=== PATIENT | male | born 1990 | race Caucasian/White ===

== ENCOUNTER 2020-02-05 01:25 | Emergency (ER) | payer BC, SELFPAY ==
[2020-02-05] VITALS (11 sets, daily range): BP systolic 95–141; BP diastolic 58–83; PULSE 86–96; RESP 18–34; TEMP 36.2; O2SAT 97–100
--- NOTE | ~2020-02-05 | XR_ITS ---
EXAMINATION: XR chest 1V portable EXAM DATE: 02/05/2020 02:39 INDICATION: Shortness of breath. TECHNIQUE: Portable AP frontal chest x-ray was obtained. Comparison is made to prior examination from 12/16/2007. FINDINGS: There is rather extensive bilateral perihilar distribution airspace disease most likely acu te edema and/or infection. Please clinically correlate. There is mild cardiomegaly. Cardiomegaly is n ew compared to prior study. No sizable pleural effusion. No pneumothorax. There are no osseous abnorm alities identified. IMPRESSION: Development of cardiomegaly, rather extensive bilateral perihilar edema and/or infection Reviewed, dictated and finalized at location A.
--- NOTE | ~2020-02-05 | CT_ITS ---
EXAMINATION: CT abdomen pelvis w con EXAM DATE: 02/05/2020 05:39 INDICATION: Abdominal pain, cough. No prior study. Hepatitis. TECHNIQUE: Spiral CT of the abdomen and pelvis was performed following intravenous injection of 100 m L Omnipaque 350. Axial, coronal and sagittal images were reviewed. The dose-length product (DLP) fo r this examination was 497.10 mGy-cm. The exposure was tailored according to patient size (auto mA e xposure control), and iterative reconstruction (ASIR) was used as additional dose reduction technique . There is no prior study for comparison. FINDINGS: There is moderate generalized fat stranding, body wall, mesenteric edema. There is small am ount of nonspecific free pelvic fluid. There is retroperitoneal fat stranding as well. Hepatic steat osis, hepatomegaly, heterogeneous liver density. Gallbladder is contracted with small amount of nons pecific pericholecystic fluid. No radiopaque gallstones. Spleen, pancreas, adrenal glands are unremar kable. Portal and splenic veins are patent. Kidneys enhance symmetrically. There is no hydronephros is. The prostate is unremarkable. The bladder is unremarkable. There is no retroperitoneal or pel irta lymphadenopathy. The appendix is normal. The stomach and small bowel are unremarkable. There is expected amount of c olonic stool. No free intraperitoneal gas. There is moderate cardiomegaly. There is rather exten sive right-sided, small to moderate amount of left-sided airspace disease in the perihilar distributi on, likely either edema, acute lung injury or acute infection, clinical correlation. As per emergency room, reportedly patient tested negative for COVID 19. Some reactive infrahilar lymphadenopathy. The bones are unremarkable. IMPRESSION: 1. Moderate cardiomegaly, with extensive right perihilar, smaller left-sided acute airspace disease which could be infection, acute lung injury and/or edema. Please clinically correlate. 2. Generalized body wall, mesenteric, retroperitoneal fat stranding with small amount of free perito karol fluid, nonspecific. Exclude acute pancreatitis with enzymes. 3. Hepatomegaly and hepatic steatosis. Reviewed, dictated and finalized at location A. IMPRESSION: 1. Moderate cardiomegaly, with extensive right perihilar, smaller left-sided a cute airspace disease which could be infection, acute lung injury and/or edema. Please clinically correlate. 2. Generalized body wall, mesenteric, retroperitoneal fat stranding with small amount of free peritoneal fluid, nonspecific. Exclude acute pancreatitis with enzymes. 3. Hepatomegaly and hepatic steatosis.
--- NOTE | 2020-02-05 01:59 | ECG_ITS ---
Measurements Intervals [place] Rate: 86 P: 31 IA: 155 QRS: -46 QRSD: 100 T: 66 QT: 402 QTc: 482 Interpretive Statements SINUS RHYTHM POSSIBLE LEFT ATRIAL ENLARGEMENT LEFT ANTERIOR FASCICULAR BLOCK INFERIOR INFARCT, AGE INDETERMINATE BORDERLINE T WAVE ABNORMALITY- LATERAL LEADS ABNORMAL ECG Electronically Signed On 02-05-2020 8:05:44 CDT by Jet Bains D.O.
--- NOTE | 2020-02-05 02:02 | ED.SOB ---
HPI - SOB/Dyspnea General Chief Complaint: Shortness of Breath/Dyspnea Stated Complaint: double pneumonia, blood infection Time Seen by Provider: 02/05/20 01:35 Source: patient Mode of arrival: ambulatory Limitations: no limitations History of Present Illness HPI Narrative: This patient is 29 yo male who presents with complaint of sob after discharge from [facility] . Patient states he was admitted to [facility] for 6 days after treatment for pneumonia. He was discharged with antibiotics , lasix, and hydroxchloroquine. Patient reports he is still sob. He also reports nausea and vomiting associated with upper abdominal pain with eating. He denies cough or fever since discharge. He states he was tested for COVID and it was negative. MD elicited complaint: shortness of breath Related Data Home Medications Medication Instructions Recorded Confirmed alprazolam 0.5 mg PO BID PRN 02/05/20 02/05/20 ciprofloxacin HCl [Cipro] 500 mg PO Q12H 02/05/20 02/05/20 furosemide [Lasix] 20 mg PO DAILY 02/05/20 02/05/20 metoprolol tartrate 50 mg PO Q12H 02/05/20 02/05/20 Allergies Allergy/AdvReac Type Severity Reaction Status Date / Time No Known Allergies Allergy Verified 02/05/20 01:45 Review of Systems Review of Systems: All systems reviewed & are unremarkable except as noted in HPI and below Constitutional: Constitutional: Denies chills, Denies fever(s) and Reports weakness ENT: Denies nasal congestion and Denies sore throat Cardiovascular: Cardiovascular: Reports chest pain (right side) Respiratory: Respiratory: Denies cough and Reports dyspnea Gastrointestinal: Gastrointestinal: Reports abdominal pain, Denies constipation, Denies diarrhea, Reports nausea and Reports vomiting [facility] Past Medical History Medical History (Updated 02/05/20 @ 06:53 by Melinda Miller MD) Hepatitis C Social History Social History (Updated 02/05/20 @ 02:07 by Melinda Miller MD) Substance use type: amphetamines and IV drugs Exam Const: General: alert Orientation/consciousness: patient oriented x3 Eyes: Pupils: Equal, round and reactive pupils present EOM: EOMs intact bilaterally Chest: Chest palpation & inspection: normal inspection of the chest Resp: Effort & Inspection: normal respiratory effort, no retractions and no use of accessory muscles Auscultation: crackles (r) on the right Other: talking in complete sentences Cardio: Rate: regular rate Rhythm: regular rhythm Heart sounds: no murmurs GI: GI Palp: Yes Soft to palpation, Yes Tenderness to palpation present (GI) (epigastric, RUQ), No Guarding due to palpation present (GI) and No Rigid due to palpation Skin: General skin exam: normal color Rashes: no rashes Neuro: General: patient oriented x3 and moves all extremities Course Reevaluation(s) Reevaluation #1: I Discussed with patient that he is critically ill. He is in liver failure and he states that his liver enzymes were normal that last time he had labs drawn . He understands he needs to be transferred to higher level of care. He is agreeable to transfer to [place]. Date: 02/05/20 Time: 06:00 Consultations Consultation #1: I discussed case with hospitalist who recommend patient be transferred to tertiary center due to multiorgan failure including liver failure. Date: 02/05/20 Time: 05:30 Consultation #2: I discussed case and labs with Dr. Lomax in [facility] icu. HE agrees patient is appropriate for ICU. Date: 02/05/20 Time: 06:49 Vital Signs Vital signs: Vital Signs Temperature 97.2 F L 02/05/20 01:32 Pulse Rate 88 02/05/20 01:32 Respiratory Rate 18 02/05/20 01:32 Blood Pressure 141/80 H 02/05/20 01:32 Pulse Oximetry 100 02/05/20 01:32 Temperature 97.2 F L 02/05/20 01:32 Pulse Rate 94 02/05/20 08:23 Respiratory Rate 34 H 02/05/20 08:23 Blood Pressure 105/83 02/05/20 08:23 Pulse Oximetry 100 02/05/20 08:23 MDM - SOB/Dyspnea [place]
[2020-02-05] MEDS: ONDANSETRON INJ 4 MG/2 ML VIAL IV PUSH (02:08)
[2020-02-05 02:37] LABS: Alveolar/Arterial O2 Gradient 39.1 mmHg; Base Excess ABG -5.6 mEq/l (+/-2.0); Carboxyhemoglobin 0.5 % THb (0-2.0); Fractional Inspired Oxygen 21 %; HCO3 ABG 15.7 mEq/l (22.0-26.0); Methemoglobin ABG 0.1 %THb (0-1.5); Oxygen Saturation ABG 97.2 % (95.0-100.0); Oxyhemoglobin 94.4 % THb (90.0-100.0); PO2 FiO2 Ratio Arterial Blood 4.05 %; Total Hemoglobin 13.5 g/dL (12.0-18.0); pH ABG 7.483 (7.350-7.450)
[2020-02-05 02:38] LABS: PCO2 ABG 21.4 mmHg (35.0-45.0); Site Drawn RIGHT RADIAL
[2020-02-05 02:39] LABS: Device ROOM AIR; Modified Allen's Test Pass
--- NOTE | 2020-02-05 02:52 | PC.NURSE ---
LAB STATED BLOOD IS HEMOLYZED. UPPER LEATHER SORTER SENT TO FLOOR TO DRAW PT BLOOD.
[2020-02-05 02:57] LABS: Albumin Level 3.5 g/dL (3.5-5.1); Alkaline Phosphatase 201 U/L (38-126); Bilirubin,Total 1.6 mg/dL (0.2-1.3); Blood Urea Nitrogen 37 mg/dL (9-20); Calcium 7.9 mg/dL (8.4-10.2); Carbon Dioxide 18 mmol/L (22-30); Chloride 94 mmol/L (98-107); Estimated Glomerular Filt Rate 60; Glucose 103 mg/dL (75-110); Magnesium 2.5 mg/dL (1.6-2.3); Potassium 5.7 mmol/L (3.4-5.0); Sodium 129 mmol/L (137-145)
[2020-02-05 03:03] LABS: NT Pro B Type Natriuretic Pept 8010 PG/ML (5-100); Troponin I 0.044 ng/mL (0.000-0.034)
[2020-02-05 03:29] LABS: CRP 19.2 mg/dL (<1.0)
[2020-02-05 03:49] LABS: Alanine Aminotransferase > 3750 U/L (4-50)
[2020-02-05 03:53] LABS: Basophils Absolute Auto 0.1 K/mm3 (0.0-0.1); Basophils Percent Auto 0.2 % (0.2-1.2); Hematocrit 39.9 % (42.0-52.0); Hemoglobin 12.8 g/dL (14.0-18.0); Immature Granulocyte Absolute 0.28 K/mm3 (0.00-0.031); Immature Granulocyte Percent A 1.3 % (0-0.5); Lymphocytes Absolute Auto 2.44 K/mm3 (0.9-3.2); Lymphocytes Percent Auto 11.7 % (18.3-44.2); Mean Corpuscular HGB Conc 32.1 g/dl (32-36); Mean Corpuscular Hemoglobin 30.6 pg (26-34); Mean Corpuscular Volume 95.5 fl (80-100); Mean Platelet Volume 11.7 fl (7.4-10.4); Monocytes Absolute Auto 1.3 K/mm3 (0.1-0.6); Monocytes Percent Auto 6.2 % (2.6-8.5); Neutrophils Absolute Auto 16.7 K/mm3 (1.3-6.7); Neutrophils Percent Auto 80.6 % (45.5-73.1); Nucleated Red Blood Cells Absolute Auto 0.3 K/mm3 (0.0-0.012); Nucleated Red Blood Cells Perc 1.4 % (0.0-0.2); Platelet Count Result 376 k/mm3 (150-375); Red Blood Count 4.18 M/mm3 (4.6-6.20); Red Cell Distribution Width 12.8 % (11.5-14.5); White Blood Count 20.8 K/mm3 (4.5-10.0)
[2020-02-05 04:03] LABS: INR 3.1; Partial Thromboplastin Time 33.6 SECONDS (22.3-36.8); Prothrombin Time 31.5 Seconds (11.1-14.7)
[2020-02-05] MEDS: SODIUM POLYSTYRENE SULFONONATE 15 GM/60 ML BTL 30 GM PO (04:11)
[2020-02-05] MEDS: DEXTROSE 50% 25 GM/50 ML SYRINGE IV PUSH (04:12)
[2020-02-05] MEDS: CALCIUM GLUCONATE 1,000 MG/10 ML VIAL 1000 MG IV PUSH (04:13)
[2020-02-05] MEDS: SODIUM BICARBONATE 8.4% 50 MEQ/50 ML VIAL IV PUSH (04:14)
[2020-02-05] MEDS: INSULIN HUMAN REGULAR (*BKC) 100 UNITS/ML 10 UNITS IV PUSH (04:17)
[2020-02-05 04:19] LABS: Aspartate Amino Transferase > 7500 U/L (17-59); Lactate Dehydrogenase > 10000 U/L (313-618)
[2020-02-05] MEDS: SODIUM CHLORIDE 0.9% IV 500 ML 999 ML IV CONT (04:24)
[2020-02-05] MEDS: SODIUM CHLORIDE 0.9% IV 1,000 ML 999 ML IV CONT (04:41)
[2020-02-05 04:45] LABS: Ammonia < 9 umol/L (9-30)
[2020-02-05 04:46] LABS: D Dimer > 20.00 ug/mL (<0.48)
[2020-02-05 04:47] LABS: Creatine Kinase 656 U/L (55-170)
[2020-02-05] MEDS: FUROSEMIDE INJ 40 MG/4 ML VIAL IV PUSH (06:33)
[2020-02-05 06:49] LABS: Reflex Lactic Acid Yes or No Add Lactic
--- NOTE | 2020-02-05 06:50 | PC.NURSE ---
CALL RECEIVED FROM THAO CARBAJAL PARMELEE. TRIAGE INFORMATION GIVEN. STATES PT WILL BE ADMITTED TO [facility] ICU. STATES WILL CALL WHEN BED HAS BEEN ASSIGNED. PT UPDATED
[2020-02-05 07:04] LABS: Amphetamine Screen Urine Negative (Negative); Barbiturate Screen Urine Negative (Negative); Benzodiazepines Screen Urine Negative (Negative); Cannabinoid Screen Urine Positive (Negative); Cocaine Screen Urine Negative (Negative); Methadone Screen Urine Negative (Negative); Opiate Screen Urine Negative (Negative); Phencyclidine Screen Urine Negative (Negative)
--- NOTE | 2020-02-05 07:37 | PC.NURSE ---
Assumed pt care from STARR Manuel at this time. Awaiting bed at [facility], pt resting comfortably in bed, VSS, no complaints.
--- NOTE | 2020-02-05 07:49 | PC.NURSE ---
PT HAS BEEN ACCEPTED BY [facility] AT THIS TIME TO ROOM 8421 ICU, REPORT TO BE CALLED TO [phone].
--- NOTE | 2020-02-05 07:56 | PC.NURSE ---
ATTEMPTED PT REPORT TO [facility], NURSE UNAVAILABLE, WILL CALL BACK.
--- NOTE | 2020-02-05 08:10 | PC.NURSE ---
REPORT GIVEN TO STARR HUTCHINS AT THIS TIME. AMBULANCE REQUEST CALLED BY [facility]. PT RESTING COMFORTABLY AWAITING TRANSPORT.
[2020-02-06 13:55] LABS: SARS-CoV-2 RNA PCR Negative
== END 2020-02-05 08:26 | disposition short-term general hospital (02) ==
PROVIDERS: Emergency Provider General Practice; PCP Pediatrics
DX: A41.9 Sepsis, unspecified organism (principal); R65.21 Severe sepsis with septic shock; K72.00 Acute and subacute hepatic failure without coma; I50.9 Heart failure, unspecified; J18.9 Pneumonia, unspecified organism; E87.5 Hyperkalemia; Z20.828 Contact with and (suspected) exposure to other viral communicable diseases; Z86.19 Personal history of other infectious and parasitic diseases
CPT/HCPCS: 36415; 36600; 71045; 74177; 80053; 80307; 82140; 82375; 82550; 82805; 83050; 83605; 83615; 83735; 83880; 84484; 85025; 85380; 85610; 85730; 86140; 87040; 87635; 93005; 96365; 96368; 96375; 99291; A9270; J0610; J1815; J1940; J2405; J2543; J3370; J7030; J7040; Q9967; U0003

== ENCOUNTER 2020-02-27 17:39 | Inpatient (IN) | payer BC, SELFPAY ==
--- NOTE | ~2020-02-27 | CT_ITS ---
EXAMINATION: CTA chest abdomen pelvis EXAM DATE: 02/27/2020 21:42 INDICATION: Right-sided chest pain, right abdominal pain, bloating. History CHF, liver failure. TECHNIQUE: Spiral CT of the chest, abdomen and pelvis was performed following intravenous injection o f 100 mL Omnipaque 350. Axial, coronal and sagittal images were reviewed. Coronal maximum intensity pixel images of chest reviewed. The dose-length product (DLP) for this examination was 875.34 mGy-c m. The exposure was tailored according to patient size (auto mA exposure control), and iterative rec onstruction (ASIR) was used as additional dose reduction technique. Comparison is made to prior exami nation from 02/05/2020. FINDINGS: CHEST: There is moderate cardiomegaly. There is extensive bilateral perihilar distribution airspace d isease, had more groundglass density on prior study and today has more solid density. There is likely interval increase in the amount of left-sided airspace disease. Differential diagnosis includes pneu monia, acute lung injury, edema. There are no central pulmonary emboli or aortic dissection. There is small pericardial effusion, and trace right pleural effusion. Tracheobronchial tree is patent. Th ere is no mediastinal, hilar or axillary lymphadenopathy. There is no pneumothorax. ABDOMEN PELVIS: There is moderate generalized fat stranding, body wall, mesenteric edema. There is sm all amount of nonspecific free pelvic fluid. There is retroperitoneal fat stranding as well. There is moderate amount of ascites, interval increase compared to prior study. Hepatic steatosis, hepatomega ly, heterogeneous liver density. Gallbladder contracted, no calcified cholelithiasis. Spleen, pancre as, adrenal glands are unremarkable. Portal and splenic veins are patent. Kidneys enhance symmetrica lly. There is no hydronephrosis. The prostate is unremarkable. The bladder is unremarkable. Ther e is no retroperitoneal or pelvic lymphadenopathy. The appendix is normal. The stomach and small bowel are unremarkable. There is expected amount of c olonic stool. No free intraperitoneal gas. IMPRESSION: 1. Moderate cardiomegaly, development of small pericardial effusion. 2. Extensive bilateral perihilar airspace disease, could be edema, acute lung injury and/or infectio n. Please clinically correlate. 3. Progression anasarca and now moderate ascites. 4. Heterogeneous liver density unchanged. Reviewed, dictated and finalized at location A. IMPRESSION: 1. Moderate cardiomegaly, development of small pericardial effusion. 2. Extensive bilateral perihilar airspace disease, could be edema, acute lung injury and/or infection. Please clinically correlate. 3. Progression anasarca and now moderate ascites. 4. Heterogeneous liver density unchanged.
--- NOTE | ~2020-02-27 | XR_ITS ---
EXAMINATION: XR chest 2V EXAM DATE: 02/27/2020 18:18 INDICATION: Mid chest pain, shortness of breath. TECHNIQUE: Frontal and lateral projections of the chest obtained and reviewed. Comparison is made to prior examination from 02/05/2020. FINDINGS: Again there is rather extensive bilateral acute airspace disease, appears slightly more pro gressed on the left compared to prior study, and slightly improved on the right. Could be edema given the cardiomegaly. Infection or acute lung injury also possible. No pneumothorax or sizable pleural e ffusion. There are no osseous abnormalities identified. IMPRESSION: Extensive bilateral airspace disease could be edema given the cardiomegaly. Infection, ac [place] lung injury not excludable. Reviewed, dictated and finalized at location A. IMPRESSION: Extensive bilateral airspace disease could be edema given the cardi omegaly. Infection, acute lung injury not excludable.
--- NOTE | ~2020-02-27 | NM_ITS ---
EXAMINATION: NM danish stress w perfusion DATE: 03/01/2020 13:13 INDICATION: Congestive heart failure. Left chest pain. TECHNIQUE: Rest images were obtained following intravenous administration of 9.44 mCi Tc99m tetrofosm in (Myoview). The patient was infused intravenously with Lexiscan (regadenoson). Then, 30 mCi Tc99m t etrofosmin (Myoview) was administered intravenously, and stress images were obtained. Data was recons tructed into short axis and horizontal and vertical long axis SPECT images. Gated SPECT images were a lso obtained. COMPARISON: Chest CT 02/27/2020 FINDINGS: There is left ventricular enlargement the heart. There is a small, mild, fixed perfusion de fect involving mid anterior and mid anteroseptal segments of left ventricle, consistent with infarct. No reversible component to suggest ischemia. There is global hypokinesis. Left ventricular ejectio n fraction measures 18%. IMPRESSION: 1. Small area of mild infarct involving mid anterior and mid anteroseptal segments of left ventricle. 2. Global hypokinesis with left ventricular ejection fraction measuring 18%. 3. Left ventricular enlargement of the heart. Reviewed, dictated and finalized at location A. IMPRESSION: 1. Small area of mild infarct involving mid anterior and mid anteroseptal segme nts of left ventricle. 2. Global hypokinesis with left ventricular ejection fraction measuring 18%. 3. Left ventricular enlargement of the heart.
[2020-02-27 17:41] VITALS: BP 102/76; PULSE 120; RESP 22; TEMP 37.4; O2SAT 94
--- NOTE | 2020-02-27 17:49 | ECG_ITS ---
Measurements Intervals [place] Rate: 119 P: 44 [place]: 145 QRS: -30 QRSD: 100 T: 71 QT: 307 QTc: 433 Interpretive Statements SINUS TACHYCARDIA LEFT ATRIAL ENLARGEMENT LOW QRS VOLTAGE IN LIMB LEADS POOR R WAVE PROGRESSION, ANTERIOR LEADS INFERIOR INFARCT, AGE INDETERMINATE BORDERLINE T WAVE ABNORMALITY- LATERAL LEADS ABNORMAL ECG Electronically Signed On 02-27-2020 18:13:43 CDT by Jet Bains D.O.
--- NOTE | 2020-02-27 18:29 | PC.NURSE ---
patient unpleasant and uncooperative. refused to let this rn attempt iv access unless ij was attempted. demanding something to drink or you can get out and not do anything
--- NOTE | 2020-02-27 19:32 | PC.NURSE ---
right ej started by dr arellano.
[2020-02-27 19:34] LABS: Basophils Absolute Auto 0.1 K/mm3 (0.0-0.1); Basophils Percent Auto 0.5 % (0.2-1.2); Eosinophils Absolute Auto 0.1 K/mm3 (0-0.3); Eosinophils Percent Auto 0.6 % (0-4.4); Hematocrit 40.5 % (42.0-52.0); Hemoglobin 12.8 g/dL (14.0-18.0); Immature Granulocyte Absolute 0.02 K/mm3 (0.00-0.031); Immature Granulocyte Percent A 0.2 % (0-0.5); Lymphocytes Percent Auto 24.5 % (18.3-44.2); Mean Corpuscular HGB Conc 31.6 g/dl (32-36); Mean Corpuscular Hemoglobin 31.8 pg (26-34); Mean Corpuscular Volume 100.5 fl (80-100); Mean Platelet Volume 10.6 fl (7.4-10.4); Monocytes Absolute Auto 0.7 K/mm3 (0.1-0.6); Monocytes Percent Auto 6.6 % (2.6-8.5); Neutrophils Absolute Auto 7.2 K/mm3 (1.3-6.7); Neutrophils Percent Auto 67.6 % (45.5-73.1); Platelet Count Result 318 k/mm3 (150-375); Red Blood Count 4.03 M/mm3 (4.6-6.20); Red Cell Distribution Width 17.7 % (11.5-14.5); White Blood Count 10.6 K/mm3 (4.5-10.0)
[2020-02-27 19:44] LABS: INR 2.2; Prothrombin Time 23.6 Seconds (11.1-14.7)
[2020-02-27 19:45] LABS: Partial Thromboplastin Time 27.9 SECONDS (22.3-36.8)
[2020-02-27 19:49] LABS: Blood Urea Nitrogen 37 mg/dL (9-20); Calcium 8.1 mg/dL (8.4-10.2); Carbon Dioxide 26 mmol/L (22-30); Chloride 100 mmol/L (98-107); Estimated CRCL calculation 89 ml/min; Estimated Glomerular Filt Rate > 60; Glucose 107 mg/dL (75-110); Potassium 4.7 mmol/L (3.4-5.0); Sodium 132 mmol/L (137-145)
--- NOTE | 2020-02-27 19:59 | ED.GENADULT ---
HPI - General Adult General Chief complaint: Unspecified Stated complaint: multiple complaints Time Seen by Provider: 02/27/20 19:34 Source: patient Mode of arrival: ambulatory Limitations: no limitations History of Present Illness HPI narrative: This patient is a 29 yo male with h/o IV drug use, CHF who presents from home with c/o left chest pain, feet swelling and shortness of breath. Patient was transferred to [place] last month with CHF, liver failure likely due to IV drug use. PAtient states he was discharged from [facility] 2 weeks ago. He states he was doing fine until he used meth 2 days ago and he has been having increased swelling to bilateral feet, worsening cough and shortness of breath. He denies fever or chills. He states he has appointment with architect in training tomorrow. Related Data Home Medications Medication Instructions Recorded Confirmed furosemide 80 mg PO DAILY 02/28/20 02/28/20 lisinopril 5 mg PO DAILY 02/28/20 02/28/20 metoprolol succinate 25 mg PO DAILY 02/28/20 02/28/20 sertraline 25 mg PO HS 02/28/20 02/28/20 Allergies Allergy/AdvReac Type Severity Reaction Status Date / Time No Known Allergies Allergy Verified 02/27/20 17:46 Review of Systems Review of Systems: All systems reviewed & are unremarkable except as noted in HPI and below Constitutional: Constitutional: Denies chills and Denies fever(s) Cardiovascular: Cardiovascular: Reports chest pain and Denies radiating jaw, neck or arm pain Respiratory: Respiratory: Reports cough and Reports dyspnea Gastrointestinal: Gastrointestinal: Denies abdominal pain, Reports bloating, Reports diarrhea and Denies vomiting Genitourinary: Genitourinary: Denies oliguria and Denies urinary frequency Musculoskeletal: Musculoskeletal: Reports back pain [facility] Past Medical History Medical History CHF (congestive heart failure) Hepatitis C Social History Social History Smoking packs per day: 1 Smoking cigarettes per day: 20.0 Years smoked: 10 Smoking pack-years: 10.00 Smoking status: Current some day smoker Alcohol intake: former Substance use: current Substance use type: marijuana and methamphetamine Gender identity (if verbalized by the patient): Male Spiritual care concerns: No Exam Const: General: alert and ill appearing acutely; No diaphoretic Orientation/consciousness: patient oriented x3 HENMT: Head: normocephalic and atraumatic Mouth: Yes Normal oral and palatal mucosa present, Yes lip normal and Yes oropharynx normal Eyes: Conjunctivae: conjunctivae normal Pupils: Equal, round and reactive pupils present EOM: EOMs intact bilaterally Chest: Chest palpation & inspection: normal inspection of the chest Resp: Effort & Inspection: no retractions, tachypneic and no use of accessory muscles Auscultation: clear to auscultation bilaterally Cardio: Rate: tachycardic Rhythm: regular rhythm Heart sounds: no murmurs GI: Inspection: distended GI Palp: Yes Soft to palpation, No Tenderness to palpation present (GI) and No Guarding due to palpation present (GI) Back/Spine/Pelvis: Back: no CVA tenderness Skin: General skin exam: pallor Other: patient has abrasion to bilateral knees, no surrounding erythema or drainage, Neuro: General: patient oriented x3 and moves all extremities Extrem: General: edema (feet and leg swelling) bilateral Course Consultations Consultation #1: I discussed with DR. Ameya goodwin's hospital course over pas month. He accepts patient to hospitalist service on IMU for CHF. He request COVID test Date: 02/27/20 Time: 23:22 Vital Signs Vital signs: Vital Signs Temperature 99.4 F 02/27/20 17:41 Pulse Rate 120 H 02/27/20 17:41 Respiratory Rate 22 H 02/27/20 17:41 Blood Pressure 102/76 02/27/20 17:41 Pulse Oximetry 94 02/27/20 17:41 Temperature 98.1 F 02/16
[2020-02-27 20:01] LABS: Troponin I 0.027 ng/mL (0.000-0.034)
[2020-02-27 20:07] LABS: Add Urine Microscopic? YES; Appearance Urine Clear (Clear); Bilirubin Urine Negative (Negative); Blood Urine Negative (Negative); Color Urine Yellow (Yellow); Glucose Urine UA Negative (Negative); Ketones Urine Negative (Negative); Leukocyte Esterase Ur Negative LEU/UL (Negative); Mucus Urine Rare /lpf; Nitrate Urine Negative (Negative); Protein Urine 1+ mg/dL (Negative); RBC Urine 0-2 /hpf (0-2); Specific Grav Ur 1.018 (1.001-1.035); WBC Urine 0-3 /hpf
[2020-02-27 20:08] LABS: Alanine Aminotransferase 140 U/L (4-50); Albumin Level 3.3 g/dL (3.5-5.1); Alkaline Phosphatase 113 U/L (38-126); Aspartate Amino Transferase 90 U/L (17-59); Bilirubin,Total 1.1 mg/dL (0.2-1.3); Magnesium 1.9 mg/dL (1.6-2.3)
[2020-02-27] MEDS: FUROSEMIDE INJ 40 MG/4 ML VIAL IV PUSH (20:14)
[2020-02-27 20:17] LABS: NT Pro B Type Natriuretic Pept 16300 PG/ML (5-100)
[2020-02-27 20:19] LABS: Lactic Acid Reflex 2.2 mmol/L (0.7-2.1)
[2020-02-27 20:30] LABS: Alveolar/Arterial O2 Gradient 163.5 mmHg; Base Excess ABG 0.2 mEq/l (+/-2.0); Carboxyhemoglobin 0.3 % THb (0-2.0); Fractional Inspired Oxygen 33 %; HCO3 ABG 26.8 mEq/l (22.0-26.0); Methemoglobin ABG 2.4 %THb (0-1.5); Oxygen Content ABG 1.6 %vol (16.0-22.0); Oxyhemoglobin 8.5 % THb (90.0-100.0); PCO2 ABG 51.7 mmHg (35.0-45.0); PO2 FiO2 Ratio Arterial Blood 0.35 %; Reduced Hemoglobin 88.8 %THb (0-5.0); Total Hemoglobin 13.4 g/dL (12.0-18.0); pH ABG 7.333 (7.350-7.450)
[2020-02-27 20:35] LABS: PO2 ABG 11.4 mmHg (80.0-100.0)
[2020-02-27 20:36] LABS: Device NASAL CANNULA; Modified Allen's Test Pass; Site Drawn LEFT RADIAL
[2020-02-27 22:26] VITALS: BP 113/84; PULSE 138; RESP 30; O2SAT 100
[2020-02-27] MEDS: LORAZEPAM INJ 2 MG/ML VIAL 0.5 MG IV PUSH (22:58)
[2020-02-27 23:06] LABS: Reflex Lactic Acid Yes or No Add Lactic
[2020-02-27 23:12] VITALS: BP 116/89; PULSE 117; RESP 28; O2SAT 100
--- NOTE | 2020-02-27 23:12 | PC.NURSE ---
assumed care of patient
[2020-02-27 23:55] LABS: Lactic Acid 1.4 mmol/L (0.7-2.1)
[2020-02-28] VITALS (12 sets, daily range): BP systolic 93–113; BP diastolic 62–85; PULSE 95–120; RESP 22–30; TEMP 36.3–37; O2SAT 94–100; BMI 29.8
[2020-02-28 00:07] LABS: Troponin I 0.028 ng/mL (0.000-0.034)
[2020-02-28 01:01] LABS: Troponin I 0.032 ng/mL (0.000-0.034)
--- NOTE | 2020-02-28 01:03 | PM.IMHP ---
H&P: HPI History of Present Illness Chief complaint: CHF, Meth Abuse Narrative: This is a 29 year old male with known history of IV drug abuse who recently was transferred to [facility] last month secondary to acute liver failure. The patient presented to our hospital [facility] with a complaint of left sided chest pain, LE swelling and shortness of breath. The patient admitted to using methamphetamines again two days ago. He denied any fever or chills to ER provider. On my encounter with the patient he is very sleepy and does not want to answer my questions. He states he just wants to sleep and continually tells me to go away . No other history is obtainable from the patient. Review of Systems Review of Systems: ROS unobtainable: Yes unobtainable due to mental status PMFSH Past Medical History Medical History CHF (congestive heart failure) Hepatitis C Social History Social History Smoking packs per day: 1 Smoking cigarettes per day: 20.0 Years smoked: 10 Smoking pack-years: 10.00 Smoking status: Current some day smoker Alcohol intake: former Substance use: current Substance use type: marijuana and methamphetamine Gender identity (if verbalized by the patient): Male Spiritual care concerns: No Comments Past medical/surgical/family/social history is unobtainable from the patient. Meds Home Medications and Allergies Home Medications Medication Instructions Recorded Confirmed Type furosemide 80 mg PO DAILY 02/28/20 02/28/20 History lisinopril 5 mg PO DAILY 02/28/20 02/28/20 History metoprolol succinate 25 mg PO DAILY 02/28/20 02/28/20 History sertraline 25 mg PO HS 02/28/20 02/28/20 History Allergies Allergy/AdvReac Type Severity Reaction Status Date / Time No Known Allergies Allergy Verified 02/27/20 17:46 Vital Signs Vital Signs - 24 hr 02/27/20 17:41 02/27/20 22:26 02/27/20 23:12 Temperature 37.4 C Pulse Rate 120 H 138 H 117 H Respiratory Rate 22 H 30 H 28 H Blood Pressure 102/76 113/84 116/89 Pulse Oximetry 94 100 100 02/28/20 00:00 02/28/20 00:44 Temperature Pulse Rate 120 H 102 H Respiratory Rate 30 H 24 H Blood Pressure 113/81 Pulse Oximetry 98 94 Exam Const: General: other (Somnolent and noncooperative+) Nutritional Appearance: overweight Orientation/consciousness: Other orientation findings (somnolent) HENMT: Head: normal to inspection General nose exam: Normal external nose present Face and sinus: normal facial exam Mouth: Yes Normal oral and palatal mucosa present and Yes oropharynx normal Eyes: Pupils: Equal, round and reactive pupils present EOM: EOMs intact bilaterally Neck: Neck: supple and no JVD Thyroid: thyroid normal Lymphatic: lymphadenopathy not noted Resp: Effort & Inspection: normal respiratory effort Auscultation: diminished lung sounds Cardio: Rate: tachycardic Rhythm: regular rhythm Heart sounds: no murmurs GI: Inspection: normal to inspection Auscultation: normal bowel sounds Skin: General skin exam: normal color and no rashes or lesions noted Neuro: Cranial nerves: Yes Equal, round and reactive pupils present Extrem: General: normal to inspection and edema H&P: Results Labs Labs: Short CBC 02/27/20 Range/Units 19:23 WBC 10.6 H (4.5-10.0) K/mm3 Hgb 12.8 L (14.0-18.0) g/dL Hct 40.5 L (42.0-52.0) % Plt Count 318 (150-375) k/mm3 BMP 02/27/20 19:25 Sodium 132 L Potassium 4.7 Chloride 100 Carbon Dioxide 26 BUN 37 H Creatinine 1.20 Glucose 107 Calcium 8.1 L Cardiac Enzymes 02/27/20 02/27/20 02/28/20 Range/Units 19:25 23:37 00:30 Troponin I 0.027 0.028 0.032 (0.000-0.034) ng/mL Liver Function 02/27/20 Range/Units 19:23 Total Bilirubin 1.1 (0.2-1.3) mg/dL Direct Bilirubin 0.0 (0-0.3) mg/dL AST 90 H (17-59) U/L ALT 140 H
[2020-02-28 04:11] LABS: Basophils Percent Auto 0.4 % (0.2-1.2); Eosinophils Percent Auto 0.1 % (0-4.4); Hematocrit 38.7 % (42.0-52.0); Hemoglobin 12.3 g/dL (14.0-18.0); Immature Granulocyte Absolute 0.04 K/mm3 (0.00-0.031); Immature Granulocyte Percent A 0.4 % (0-0.5); Lymphocytes Absolute Auto 2.25 K/mm3 (0.9-3.2); Mean Corpuscular HGB Conc 31.8 g/dl (32-36); Mean Corpuscular Hemoglobin 31.5 pg (26-34); Mean Corpuscular Volume 99.2 fl (80-100); Mean Platelet Volume 10.7 fl (7.4-10.4); Monocytes Absolute Auto 0.7 K/mm3 (0.1-0.6); Monocytes Percent Auto 7.7 % (2.6-8.5); Neutrophils Absolute Auto 6.3 K/mm3 (1.3-6.7); Neutrophils Percent Auto 67.4 % (45.5-73.1); Platelet Count Result 260 k/mm3 (150-375); Red Cell Distribution Width 17.6 % (11.5-14.5); White Blood Count 9.4 K/mm3 (4.5-10.0)
[2020-02-28 04:25] LABS: Alanine Aminotransferase 125 U/L (4-50); Alkaline Phosphatase 102 U/L (38-126); Aspartate Amino Transferase 70 U/L (17-59); Bilirubin,Total 1.3 mg/dL (0.2-1.3); Blood Urea Nitrogen 34 mg/dL (9-20); Calcium 8.1 mg/dL (8.4-10.2); Carbon Dioxide 29 mmol/L (22-30); Chloride 99 mmol/L (98-107); Estimated CRCL calculation 105 ml/min; Estimated Glomerular Filt Rate > 60; Glucose 101 mg/dL (75-110); Potassium 4.5 mmol/L (3.4-5.0); Sodium 133 mmol/L (137-145)
[2020-02-28] MEDS: FUROSEMIDE INJ 40 MG/4 ML VIAL IV PUSH ×2 (10:04→20:53)
[2020-02-28] MEDS: lisinopriL 5 MG TABLET PO (10:04)
[2020-02-28] MEDS: METOPROLOL SUCCINATE EXT REL 25 MG TABCR PO (10:04)
--- NOTE | 2020-02-28 11:49 | PM.IMPN ---
Progress Note: A&P Assessment and Plan (1) Acute exacerbation of CHF (congestive heart failure): Qualifiers: Heart failure type: systolic Qualified Code(s): I50.23 - Acute on chronic systolic (congestive) heart failure Code(s): I50.9 - Heart failure, unspecified Status: Acute Assessment and Plan: Continue diuresis Follow-up labs Increase activity as tolerated 02/27 transfer from ICU to medical floor Await records from last hospitalization (2) Methamphetamine abuse: Code(s): F15.10 - Other stimulant abuse, uncomplicated Status: Chronic Assessment and Plan: He would benefit from a drug rehabilitation program (3) Suspected COVID-19 virus infection: Code(s): Z20.828 - Contact with and (suspected) exposure to other viral communicable diseases Status: Acute Assessment and Plan: Chest x-ray findings more likely due to pulmonary edema COVID-19 results pending Continue droplet isolation (4) Chronic anemia: Code(s): D64.9 - Anemia, unspecified Status: Chronic Assessment and Plan: No signs of acute blood loss. Monitor H/H and transfuse prn. (5) Hepatitis C: Qualifiers: Viral hepatitis chronicity: unspecified Hepatic coma status: without hepatic coma Qualified Code(s): B19.20 - Unspecified viral hepatitis C without hepatic coma Code(s): B19.20 - Unspecified viral hepatitis C without hepatic coma Status: Chronic Assessment and Plan: Chronic per history Subjective Date/time seen: 02/28/20 11:49 Interval history: Admitted 02/26 with lower extremity swelling and increased dyspnea. Patient with known cardiomyopathy. 02/27. Denied chest pain. Short of breath with exertion a day but not at rest. Tolerating diet. Complaining that he is not getting enough to drink. Denied GI or complaints. Denied abnormal bleeding. Review of Systems Review of Systems: All systems reviewed & are unremarkable except as noted in HPI and below Exam Narrative: Exam Narrative: HEENT: EOMI, PERRL, sclerae nonicteric, pharyngeal mucosa pink and intact NECK: No JVD, adenopathy, or thyromegaly CHEST: Clear to auscultation. Normal effort. HEART: NL S1/S2, regular, no murmur ABDOMEN: BS+, soft, nontender, no mass, no bruits EXTREMITIES: No cyanosis, 2+ ankle and pedal edema NEUROLOGIC: CN intact and symmetric to inspection. MUSCULOSKELETAL: Tone and strength symmetric. PSYCH: Alert. Oriented to person, place, and time. Affect appropriate. Mood anxious, irritable. Objective Data Vital Signs Vital Signs: Vital Signs - 24 hr 02/27/20 17:41 02/27/20 22:26 02/27/20 23:12 Temperature 99.4 F Pulse Rate 120 H 138 H 117 H Respiratory Rate 22 H 30 H 28 H Blood Pressure 102/76 113/84 116/89 Pulse Oximetry 94 100 100 02/28/20 00:00 02/28/20 00:44 02/28/20 02:00 Temperature Pulse Rate 120 H 102 H 97 Respiratory Rate 30 H 24 H Blood Pressure 113/81 Pulse Oximetry 98 94 02/28/20 03:24 02/28/20 04:00 02/28/20 06:00 Temperature 98.1 F Pulse Rate 96 98 101 H Respiratory Rate 24 H 22 H Blood Pressure 110/85 Pulse Oximetry 96 97 02/28/20 08:00 02/28/20 10:04 Temperature Pulse Rate 101 H 107 H Respiratory Rate Blood Pressure Pulse Oximetry Intake/Output Intake/Output: Intake & Output 02/25/20 02/26/20 02/27/20 02/28/20 23:59 23:59 23:59 23:59 Intake Total 65 0 Balance 65 0 Meds/Results Medications: Active Medications Generic Name Dose Route Start Last Admin Trade Name Freq PRN Reason Stop Dose Admin Furosemide 40 mg 02/28/20 09:00 02/28/20 10:04 Lasix Inj IV PUSH 40 mg Q12HR RALF Administration Lisinopril 5 mg 02/28/20 09:00 02/28/20 10:04 Prinivil PO 5 mg DAILY RALF Administration Metoprolol Succinate 25 mg 02/28/20 09:00 02/28/20 10:04 Toprol Xl PO 25 mg DAILY RALF Administration Ondansetron HCl 4 mg 02/27/20 23:24
[2020-02-28 14:46] LABS: SARS-CoV-2 RNA PCR Negative
--- NOTE | 2020-02-28 18:17 | PC.NURSE ---
This patient, Jesus Yancey, was transferred to [[facility] ] on 02/28/20 at 1800. Personal belongings sent with patient. Belongings list checked and signed with receiving [ ]. Report given to [Umair ]. Appropriate documentation sent with patient.
--- NOTE | 2020-02-28 18:20 | PC.NURSE ---
This patient, Jesus Yancey, was received from ICU on 02/28/20 at 1820. Personal belongings list checked and signed. Patient/family oriented to unit policies and routines
[2020-02-28] MEDS: GUAIFENESIN/DEXTROMETHORPHAN 10 ML UDC PO (18:27)
[2020-02-28] MEDS: ONDANSETRON INJ 4 MG/2 ML VIAL IV PUSH (19:58)
[2020-02-28] MEDS: BELLADONNA ALK/PHENOB ELIX 10 ML, MAG HYDROX/ALUMINUM HYD/SIMETH 30 ML, LIDOCAINE HCL 2... PO (21:09)
[2020-02-28] MEDS: SERTRALINE HCL 25 MG TABLET PO (22:22)
[2020-02-28] MEDS: ALPRAZOLAM 0.5 MG TABLET PO (22:22)
[2020-02-29] VITALS: BP 102/68; PULSE 104; RESP 18; TEMP 36.4; O2SAT 92
--- NOTE | 2020-02-29 01:16 | ECHO_ITS ---
Patient Info Name: Jesus Yancey Age: 29 years : 1990 Gender: Male Ht: 68 in Wt: 196 lbs BSA: 2.09 m2 HR: 100 bpm BP: 102 / 68 mmHg Heart Rhythm: Sinus Rhythm Technical Quality: Excellent Exam Date: 02/29/2020 8:56 AM Exam Location: [facility] Patient Status: Inpatient Admit Date: 02/27/2020 Staff Ordering Physician: Nasim Hou MD Brake Operator Sheet Metal: Benjie Singh RDCS Attending Provider: Nasim Hou MD Referring Physician: Ameya JACOBSEN; Exam Type: CA echo doppler color flow Study Info Indications I50.22 - Chronic systolic (congestive) heart failure Complete two-dimensional, color flow and Doppler transthoracic echocardiogram is performed. Strain analysis performed. History/Risk Factors CHF; methamphetamine use, cardiomegaly, edema, SOB. Summary 1. Left ventricular systolic function is severely reduced, estimated at <15%. Estimated EF 10-15% by visual estimation. 2. Left ventricular chamber dimension is severely enlarged. 3. The left ventricular diastolic function is normal. 4. E/e' 9 is minimally elevated. 5. Global longitudinal strain is abnormal at -2.8%. 6. Right ventricular systolic function is at least moderately reduced. 7. Right ventricular chamber dimension is mildly enlarged. 8. Left atrial chamber dimension is moderately enlarged. 9. Right atrial chamber dimension is mildly enlarged. 10. There is mild to moderate mitral valve regurgitation. 11. There is moderate tricuspid valve regurgitation. 12. Mild pulmonary hypertension, estimated pulmonary arterial systolic pressure is 49 mmHg. 13. There is trace pulmonic regurgitation. 14. Dilated inferior vena cava with <50% collapse upon inspiration consistent with significantly elevated right atrial pressure, 15 mmHg. Left Ventricle E/e' 9 is minimally elevated. Global longitudinal strain is abnormal at -2.8%. Left ventricular systolic function is severely reduced, estimated at <15%. Estimated EF 10-15% by visual estimation. Left ventricular chamber dimension is severely enlarged. The left ventricular diastolic function is normal. Right Ventricle Right ventricular systolic function is at least moderately reduced. Moderator band which is normal variant. Right ventricular chamber dimension is mildly enlarged. Left Atria Left atrial chamber dimension is moderately enlarged. Right Atria Right atrial chamber dimension is mildly enlarged. Aortic Valve The aortic valve is trileaflet. There is no aortic valve stenosis. There is no aortic valve regurgitation. Pulmonic Valve There is trace pulmonic regurgitation. Mitral Valve There is no mitral valve stenosis. There is mild to moderate mitral valve regurgitation. Tricuspid Valve There is moderate tricuspid valve regurgitation. Mild pulmonary hypertension, estimated pulmonary arterial systolic pressure is 49 mmHg. Pericardium/Pleural The pericardium appears normal. There is no pericardial effusion. Inferior Vena Cava Dilated inferior vena cava with <50% collapse upon inspiration consistent with significantly elevated right atrial pressure, 15 mmHg. Aorta The aortic root size at the sinus of Valsalva is normal. Left Ventricular Outflow Tract Name Value Normal LVOT 2D
[2020-02-29] MEDS: GUAIFENESIN/DEXTROMETHORPHAN 10 ML UDC PO ×3 (07:15→15:35)
--- NOTE | 2020-02-29 09:00 | PC.NURSE ---
Per utility pipe layer, patent refused labwork this morning - 2 attempts made and patient refused to allow them to stick him at all. Notified Dr. Peace. No new orders received.
[2020-02-29 09:33] VITALS: PULSE 84
[2020-02-29] MEDS: METOPROLOL SUCCINATE EXT REL 25 MG TABCR PO (09:33)
[2020-02-29] MEDS: lisinopriL 5 MG TABLET PO (09:33)
[2020-02-29] MEDS: FUROSEMIDE INJ 40 MG/4 ML VIAL IV PUSH (09:33)
--- NOTE | 2020-02-29 10:05 | PM.IMPN ---
Progress Note: A&P Assessment and Plan (1) Acute exacerbation of CHF (congestive heart failure): Qualifiers: Heart failure type: systolic Qualified Code(s): I50.23 - Acute on chronic systolic (congestive) heart failure Code(s): I50.9 - Heart failure, unspecified Status: Acute Assessment and Plan: Continue diuresis Follow-up labs Increase activity as tolerated 02/27 transferred from ICU to medical floor Likely home 03/01 (2) Methamphetamine abuse: Code(s): F15.10 - Other stimulant abuse, uncomplicated Status: Chronic Assessment and Plan: He would benefit from a drug rehabilitation program (3) Suspected COVID-19 virus infection: Code(s): Z20.828 - Contact with and (suspected) exposure to other viral communicable diseases Status: Acute Assessment and Plan: NEGATIVE (4) Chronic anemia: Code(s): D64.9 - Anemia, unspecified Status: Chronic Assessment and Plan: No signs of acute blood loss. Monitor H/H and transfuse prn. (5) Hepatitis C: Qualifiers: Viral hepatitis chronicity: unspecified Hepatic coma status: without hepatic coma Qualified Code(s): B19.20 - Unspecified viral hepatitis C without hepatic coma Code(s): B19.20 - Unspecified viral hepatitis C without hepatic coma Status: Chronic Assessment and Plan: Chronic per history Subjective Date/time seen: 02/29/20 10:05 Interval history: Admitted 02/26 with lower extremity swelling and increased dyspnea. Patient with known cardiomyopathy. 02/28. Denied chest pain. Less sob with exertiont. Tolerating diet. Anxiety attacks at HS nightly and occasionally during the day. Denied GI or complaints. Denied abnormal bleeding. Review of Systems Review of Systems: All systems reviewed & are unremarkable except as noted in HPI and below Exam Narrative: Exam Narrative: HEENT: EOMI, PERRL, sclerae nonicteric, pharyngeal mucosa pink and intact NECK: No JVD, adenopathy, or thyromegaly CHEST: Clear to auscultation. Normal effort. HEART: NL S1/S2, regular, no murmur ABDOMEN: BS+, soft, nontender, no mass, no bruits EXTREMITIES: No cyanosis, 1+ ankle and pedal edema NEUROLOGIC: CN intact and symmetric to inspection. MUSCULOSKELETAL: Tone and strength symmetric. PSYCH: Alert. Oriented to person, place, and time. Affect appropriate. Mood anxious, irritable. Objective Data Vital Signs Vital Signs: Vital Signs - 24 hr 02/28/20 12:00 02/28/20 16:00 02/28/20 18:15 Temperature 97.7 F 97.4 F L Pulse Rate 112 H 116 H 117 H Respiratory Rate 22 H 22 H Blood Pressure 104/84 93/62 L Pulse Oximetry 97 100 02/29/20 00:00 02/29/20 09:33 Temperature 97.6 F Pulse Rate 104 H 84 Respiratory Rate 18 Blood Pressure 102/68 Pulse Oximetry 92 Intake/Output Intake/Output: Intake & Output 02/26/20 02/27/20 02/28/20 02/29/20 23:59 23:59 23:59 23:59 Intake Total 65 1430 430 Output Total 1800 400 Balance 65 -370 30 Meds/Results Medications: Active Medications Generic Name Dose Route Start Last Admin Trade Name Freq PRN Reason Stop Dose Admin Furosemide 40 mg 02/28/20 09:00 02/29/20 09:33 Lasix Inj IV PUSH 40 mg Q12HR RALF Administration Guaifenesin/Dextromethorphan 10 ml 02/28/20 16:27 02/29/20 07:15 Robitussin-Dm Syrup PO 10 ml Q4H PRN Administration Cough Lisinopril 5 mg 02/28/20 09:00 02/29/20 09:33 Prinivil PO 5 mg DAILY RALF Administration Metoprolol Succinate 25 mg 02/28/20 09:00 02/29/20 09:33 Toprol Xl PO 25 mg DAILY RALF Administration Ondansetron HCl 4 mg 02/27/20 23:24 02/28/20 19:58 Zofran Inj IV PUSH 4 mg Q4H PRN Administration Nausea Sertraline HCl 25 mg 02/28/20 21:00 02/28/20 22:22 Zoloft PO 25 mg HS RALF Administration Radiology Results: ITS Impressions Chest X-Ray 02/27/20 18:29 IMPRESSION: Extensive bilateral air
[2020-02-29] MEDS: FAMOTIDINE 20 MG TABLET PO (12:11)
[2020-02-29] MEDS: NEOMYCIN/POLYMYXIN/BACITRACIN OINTMENT 15 GM TUBE 1 APPLIC TOPICAL (12:12)
[2020-02-29] MEDS: ONDANSETRON INJ 4 MG/2 ML VIAL IV PUSH ×2 (12:13→16:14)
--- NOTE | 2020-02-29 12:30 | PC.NURSE ---
Patient c/o his stomach hurting . Patient ate 100% of his lunch without difficulty. Retching in room and attempting to vomit in trashcan. Zofran given and po Pepcid initiated as ordered. Offered patient Mylanta but patient refused and stated he would see what the Zofran and Pepcid did first.
[2020-02-29 14:00] VITALS: BP 95/67; PULSE 70; RESP 24; TEMP 36.1; O2SAT 97
--- NOTE | 2020-02-29 15:00 | PC.NURSE ---
Patient states I am having the worst panic attack ever . Breathing rapidly. Sitting on couch, stating I feel terrible. Called Dr. Peace and orders received for po Ativan prn.
[2020-02-29] MEDS: LORAZEPAM 1 MG TABLET PO ×4 (15:34→23:20)
[2020-02-29] MEDS: PROCHLORPERAZINE EDISYLATE 10 MG/2 ML VIAL IV PUSH (18:06)
--- NOTE | 2020-02-29 18:11 | PC.NURSE ---
Patient has been complaining of constant nausea and feeling constipated. Requesting something to make him poop and something more for his nausea. Called Dr. Peace and orders received. Offered patient Dulcolax suppository and patient refused. Gave patient IV Compazine as ordered.
[2020-02-29] MEDS: MELATONIN 5 MG TABLET 10 MG PO (21:22)
[2020-02-29] MEDS: SERTRALINE HCL 25 MG TABLET PO (21:22)
[2020-03-01] VITALS: BP 101/70; PULSE 113; RESP 22; TEMP 36.4; O2SAT 94
--- NOTE | 2020-03-01 | EST_ITS ---
Patient Info Name: Jesus Yancey Age: 29 years : 1990 Gender: Male Ht: 68 in Wt: 185 lbs BSA: 2.03 m2 Exam Date: 03/01/2020 12:18 PM Patient Status: Inpatient Admit Date: 02/29/2020 Staff Ordering Physician: Jet Bains DO Attending Provider: Nasim Hou MD Exercise Technologist: Catarino Mejia RDCS, RT Exercise Physician: Jet Bains DO Exam Type: CA stress danish w NM Study Info A regadenoson stress test was performed. Summary 1. 1. Negative Lexiscan stress test for ischemic ST changes by ECG criteria. 2. 2. Stable hemodynamics throughout the test. 3. 3. Nuclear scan to follow and will be reported separately. Please correlate with it. 4. 4. Patient informed of the above results. Protocol: Lexiscan Stress ECG Details Stage: REST Duration (min): 1 min : 41 sec HR (bpm): 105 SBP (mmHg): 108 DBP (mmHg): 58 Stage: REST Duration (min): 5 min : 50 sec HR (bpm): 105 SBP (mmHg): 108 DBP (mmHg): 58 Stage: STAGE 1 Duration (min): 0 min : 59 sec HR (bpm): 103 SBP (mmHg): 117 DBP (mmHg): 62 Stage: RECOVERY Duration (min): 1 min : 0 sec HR (bpm): 102 SBP (mmHg): 117 DBP (mmHg): 62 Stage: RECOVERY Duration (min): 2 min : 0 sec HR (bpm): 98 SBP (mmHg): 117 DBP (mmHg): 62 Stage: RECOVERY Duration (min): 3 min : 0 sec HR (bpm): 101 SBP (mmHg): 119 DBP (mmHg): 86 Stage: RECOVERY Duration (min): 3 min : 4 sec HR (bpm): --- SBP (mmHg): 119 DBP (mmHg): 86 Rest HR: 105 bpm Peak HR: 104 bpm Rest Sys BP: 108 mmHg Peak Sys BP: 119 mmHg Max Pred HR: 192 bpm % Max Pred HR: 54 % Target HR: 163 bpm Max RPP: 12,376 bpm*mmHg Termination Reason: Completed protocol Cardiac Symptoms: None Total Time: 1 min : 0 sec Rest Christensen BP: 58 mmHg Peak Christensen BP: 86 mmHg Total Dose: 0.4 mg Resting ECG Sinus rhythm, low voltage in diffuse leads, PRWP- consider anterior infarct, inferior infarct, age indeterminate. Stress ECG No ST changes. Arrhythmias None. Report Signatures
--- NOTE | 2020-03-01 08:31 | PM.CNCAR ---
Assessment and Plan Assessment and plan (1) Hepatitis C: Qualifiers: Viral hepatitis chronicity: unspecified Hepatic coma status: without hepatic coma Qualified Code(s): B19.20 - Unspecified viral hepatitis C without hepatic coma Code(s): B19.20 - Unspecified viral hepatitis C without hepatic coma Status: Chronic (2) Methamphetamine abuse: Code(s): F15.10 - Other stimulant abuse, uncomplicated Status: Chronic Assessment and Plan: Counseled to quit use. (3) Acute exacerbation of CHF (congestive heart failure): Qualifiers: Heart failure type: systolic Qualified Code(s): I50.23 - Acute on chronic systolic (congestive) heart failure Code(s): I50.9 - Heart failure, unspecified Status: Acute Assessment and Plan: Acute systolic heart failure, likely due to substance abuse. Obtain lexiscan myoview stress test to r/o ischemia. On Korey Inh and beta josi, and diuresing well. Discussed Life Vest to prevent sudden cardiac arrest, however, he refuses it. (4) Tobacco abuse: Code(s): Z72.0 - Tobacco use Status: Acute Assessment and Plan: Counseled regarding smoking cessation. History of Present Illness History of Present Illness Consult date/time: 03/01/20 08:31 Consult regarding CHF. This is a 29 year old male admitted 2 days ago with known history of IV drug abuse who recently was transferred to [facility] last month secondary to acute liver failure. History of hepatitis C in remission, per patient. No prior cardiac history. His grandparents had heart problems. The patient presented to our hospital with a complaint of left sided chest pain, LE swelling and shortness of breath. The patient admitted to using methamphetamines again two days prior to admission. He denied any fever or chills to ER provider. Reports that he was able to walk unlimited distance until several days ago and limited at walking across the room due to sob. Edema of legs resolved. No more chest pains, orthopena, PND. Workup so far revealed INR 2.2, liver enzymes elevated but much less at 70 and 125 AST and ALT, respectively from a month ago. Echo shows EF 10-15%, severely dilated, RV dysfunction and dilation, GLS -2.8%, mod LAE, mild-mod MR, mod TR. CT chest and abd shows anarasarca with ascites and probably some pulm edema. Reason For Visit: CHF, Meth Abuse Review of Systems Review of Systems: All systems reviewed & are unremarkable except as noted in HPI and below Constitutional: Constitutional: Reports as per HPI Cardiovascular: Cardiovascular: Reports as per HPI, Denies chest pain, Denies leg edema and Denies lightheadedness Respiratory: Respiratory: Reports as per HPI and Reports dyspnea on exertion Gastrointestinal: Gastrointestinal: Reports as per HPI and Denies abdominal pain Genitourinary: Genitourinary: Reports as per HPI Musculoskeletal: Musculoskeletal: Reports as per HPI Neurologic: Reports as per HPI and Denies Abnormal speech present [facility] Past Medical History Medical History CHF (congestive heart failure) Hepatitis C Social History Social History Smoking packs per day: 1 Smoking cigarettes per day: 20.0 Years smoked: 10 Smoking pack-years: 10.00 Smoking status: Current some day smoker Alcohol intake: former Substance use: current Substance use type: marijuana and methamphetamine Gender identity (if verbalized by the patient): Male Spiritual care concerns: No Meds Home Medications and Allergies Home Medications Medication Instructions Recorded Confirmed Type furosemide 80 mg PO DAILY 02/28/20 02/28/20 History lisinopril 5 mg PO DAILY 02/28/20 02/28/20 History metoprolol succinate 25 mg PO DAILY 02/28/20 02/28/20 History sertraline 25 mg PO HS 02/28/20 02/28/20 History Allergies A
[2020-03-01] MEDS: LORAZEPAM 1 MG TABLET PO ×4 (08:45→21:23)
[2020-03-01] MEDS: lisinopriL 5 MG TABLET PO (08:46)
[2020-03-01 08:47] VITALS: PULSE 89
[2020-03-01] MEDS: METOPROLOL SUCCINATE EXT REL 25 MG TABCR PO (08:47)
[2020-03-01] MEDS: NEOMYCIN/POLYMYXIN/BACITRACIN OINTMENT 15 GM TUBE 1 APPLIC TOPICAL (08:47)
--- NOTE | 2020-03-01 09:08 | PM.IMPN ---
Progress Note: A&P Assessment and Plan (1) Acute exacerbation of CHF (congestive heart failure): Qualifiers: Heart failure type: systolic Qualified Code(s): I50.23 - Acute on chronic systolic (congestive) heart failure Code(s): I50.9 - Heart failure, unspecified Status: Acute Assessment and Plan: Diuresed well with IV furosemide 02/27 transferred from ICU to medical floor Echo with EF < 15% 03/01 D/w patient grim prognosis if he does not comply with therapeutic recommendations 03/01 cardiology consultation noted 03/01 transitioned to PO furosemide Patient previously refused LifeVest but now wishes to pursue it, so care coordination initated process (likely will require 48 hours) (2) Methamphetamine abuse: Code(s): F15.10 - Other stimulant abuse, uncomplicated Status: Chronic Assessment and Plan: He would benefit from a drug rehabilitation program (3) Suspected COVID-19 virus infection: Code(s): Z20.828 - Contact with and (suspected) exposure to other viral communicable diseases Status: Acute Assessment and Plan: NEGATIVE (4) Chronic anemia: Code(s): D64.9 - Anemia, unspecified Status: Chronic Assessment and Plan: No signs of acute blood loss. Monitor H/H and transfuse prn. (5) Hepatitis C: Qualifiers: Viral hepatitis chronicity: unspecified Hepatic coma status: without hepatic coma Qualified Code(s): B19.20 - Unspecified viral hepatitis C without hepatic coma Code(s): B19.20 - Unspecified viral hepatitis C without hepatic coma Status: Chronic Assessment and Plan: Chronic per history Subjective Date/time seen: 03/01/20 09:08 Interval history: Admitted 02/26 with lower extremity swelling and increased dyspnea. Patient with known cardiomyopathy. 02/28. Denied chest pain. Less sob with exertiont. Tolerating diet. Anxiety attacks at HS nightly and occasionally during the day. Denied GI or complaints. Denied abnormal bleeding. Review of Systems Review of Systems: All systems reviewed & are unremarkable except as noted in HPI and below Exam Narrative: Exam Narrative: HEENT: EOMI, PERRL, sclerae nonicteric, pharyngeal mucosa pink and intact NECK: No JVD, adenopathy, or thyromegaly CHEST: Clear to auscultation. Normal effort. HEART: NL S1/S2, regular, no murmur ABDOMEN: BS+, soft, nontender, no mass, no bruits EXTREMITIES: No cyanosis, 1+ ankle and pedal edema NEUROLOGIC: CN intact and symmetric to inspection. MUSCULOSKELETAL: Tone and strength symmetric. PSYCH: Alert. Oriented to person, place, and time. Affect appropriate. Mood anxious, irritable. Objective Data Vital Signs Vital Signs: Vital Signs - 24 hr 02/29/20 09:33 02/29/20 14:00 03/01/20 00:00 Temperature 97.0 F L 97.6 F Pulse Rate 84 70 113 H Respiratory Rate 24 H 22 H Blood Pressure 95/67 L 101/70 Pulse Oximetry 97 94 03/01/20 08:47 Temperature Pulse Rate 89 Respiratory Rate Blood Pressure Pulse Oximetry Intake/Output Intake/Output: Intake & Output 02/27/20 02/28/20 02/29/20 03/01/20 23:59 23:59 23:59 23:59 Intake Total 65 1430 1250 390 Output Total 1800 400 300 Balance 65 -370 850 90 Meds/Results Medications: Active Medications Generic Name Dose Route Start Last Admin Trade Name Freq PRN Reason Stop Dose Admin Al Hydrox/Mg Hydrox/Simethicone 30 ml 02/29/20 10:15 Mylanta PO Q6H PRN Indigestion Furosemide 40 mg 02/28/20 09:00 03/01/20 08:47 Lasix Inj IV PUSH Not Given Q12HR RALF Guaifenesin/Dextromethorphan 10 ml 02/28/20 16:27 02/29/20 15:35 Robitussin-Dm Syrup PO 10 ml Q4H PRN Administration Cough Lisinopril 5 mg 02/28/20 09:00 03/01/20 08:46 Prinivil PO 5 mg DAILY RALF Administration Lorazepam 1 mg 02/29/20 21:00 02/29/20 21:22 Ativan Tab PO 1 mg HS RALF Administration Lorazepam 1 mg 02/29/20 15:29
[2020-03-01 10:43] LABS: Hemoglobin 13.4 g/dL (14.0-18.0); Mean Corpuscular HGB Conc 32.7 g/dl (32-36); Mean Corpuscular Hemoglobin 31.7 pg (26-34); Mean Corpuscular Volume 96.9 fl (80-100); Mean Platelet Volume 10.8 fl (7.4-10.4); Platelet Count Result 301 k/mm3 (150-375); Red Blood Count 4.23 M/mm3 (4.6-6.20); Red Cell Distribution Width 17.8 % (11.5-14.5); White Blood Count 10.3 K/mm3 (4.5-10.0)
[2020-03-01 10:54] LABS: INR 1.8; Prothrombin Time 20.7 Seconds (11.1-14.7)
[2020-03-01 11:02] LABS: Alanine Aminotransferase 76 U/L (4-50); Albumin Level 2.8 g/dL (3.5-5.1); Alkaline Phosphatase 79 U/L (38-126); Aspartate Amino Transferase 47 U/L (17-59); Bilirubin,Total 1.6 mg/dL (0.2-1.3); Blood Urea Nitrogen 39 mg/dL (9-20); CRP 5.7 mg/dL (<1.0); Calcium 8.2 mg/dL (8.4-10.2); Carbon Dioxide 25 mmol/L (22-30); Chloride 99 mmol/L (98-107); Estimated CRCL calculation 79 ml/min; Estimated Glomerular Filt Rate > 60; Glucose 122 mg/dL (75-110); Potassium 4.5 mmol/L (3.4-5.0); Sodium 131 mmol/L (137-145)
[2020-03-01 11:31] LABS: Hepatitis B Surface Antigen Negative (Negative)
[2020-03-01 12:02] LABS: HIV 1/2 Ab P24 Ag Result Negative (Negative); Hepatitis C Virus Antibody Reactive (Negative)
[2020-03-01 14:00] VITALS: BP 89/67; PULSE 102; RESP 26; TEMP 36.3; O2SAT 95
[2020-03-01 14:47] LABS: Iron 38 ug/dL (49-181)
[2020-03-01] MEDS: GUAIFENESIN/DEXTROMETHORPHAN 10 ML UDC PO ×2 (14:59→18:30)
[2020-03-01 15:03] LABS: Percent Iron Saturation 16 % (20-50)
[2020-03-01 17:23] LABS: Folic Acid 16.4 ng/mL (2.76->20)
[2020-03-01 17:26] VITALS: BP 107/77
[2020-03-01] MEDS: MELATONIN 5 MG TABLET 10 MG PO (21:22)
[2020-03-01] MEDS: SERTRALINE HCL 25 MG TABLET PO (21:23)
[2020-03-01] MEDS: FUROSEMIDE 40 MG TABLET PO (21:23)
[2020-03-01 22:00] VITALS: BP 107/75; PULSE 100; RESP 24; TEMP 36.8; O2SAT 95
--- NOTE | 2020-03-01 23:44 | PC.NURSE ---
2100 FOUND PT LAYING ON BLANKETS ON FLOOR, WHEN QUESTIONED WHAT HE WAS DOING HE BECAME AGGITATED AND SAID IM NOT SLEEPING IN THAT BED I AM SLEEPING ON THE FLOOR AND THERE IS NOTHING YOU CAN DO ABOUT IT.
[2020-03-02] MEDS: GUAIFENESIN/DEXTROMETHORPHAN 10 ML UDC PO ×2 (04:43→09:15)
[2020-03-02] MEDS: LORAZEPAM 1 MG TABLET PO ×2 (04:43→09:15)
[2020-03-02 05:55] VITALS: BP 108/71; PULSE 42; RESP 22; TEMP 36.7; O2SAT 97
--- NOTE | 2020-03-02 07:57 | PM.PNCARD ---
Progress Note: A&P Assessment and Plan (1) Tobacco abuse: Code(s): Z72.0 - Tobacco use Status: Acute Assessment and Plan: Counseled regarding smoking cessation. (2) Hepatitis C: Qualifiers: Viral hepatitis chronicity: unspecified Hepatic coma status: without hepatic coma Qualified Code(s): B19.20 - Unspecified viral hepatitis C without hepatic coma Code(s): B19.20 - Unspecified viral hepatitis C without hepatic coma Status: Chronic (3) Methamphetamine abuse: Code(s): F15.10 - Other stimulant abuse, uncomplicated Status: Chronic Assessment and Plan: Couseled regarding quitting and effect it could have on his heart. (4) Acute exacerbation of CHF (congestive heart failure): Qualifiers: Heart failure type: systolic Qualified Code(s): I50.23 - Acute on chronic systolic (congestive) heart failure Code(s): I50.9 - Heart failure, unspecified Status: Acute Assessment and Plan: Acute dilated cardiomyopathy with significant systolic dysfunction, EF 10-15%. No ischemia based on Lexiscan myoview stress test. On beta josi and delgdao inhibitor. He agreed to Life vest and has been ordered. May d/c home once he gets this placed. F/U with me in 2 weeks. Subjective Date/time seen: 03/02/20 07:57 Denies chest pain or sob. He appears anxious and states he is anxious and sees people running around his room when they are not actually there. He states it is due to paranoid schizophrenia. States he wants to go home. Exam Const: General: comfortable and no acute distress Neck: Neck: no JVD Carotids: no bruits Resp: Auscultation: clear to auscultation bilaterally, no crackles, no rales, no rhonchi and no wheezes Cardio: Rate: regular rate Rhythm: regular rhythm Heart sounds: no murmurs GI: Inspection: non-distended Neuro: Speech: normal speech Extrem: Right lower extremity: no edema Left lower extremity: no edema Objective Data Vital Signs Vital Signs: Vital Signs - 24 hr 03/01/20 08:47 03/01/20 14:00 03/01/20 17:26 Temperature 97.4 F L Pulse Rate 89 102 H Respiratory Rate 26 H Blood Pressure 89/67 L 107/77 Pulse Oximetry 95 03/01/20 22:00 03/02/20 05:55 Temperature 98.2 F 98.1 F Pulse Rate 100 42 L Respiratory Rate 24 H 22 H Blood Pressure 107/75 108/71 Pulse Oximetry 95 97 Intake/Output Intake/Output: Intake & Output 02/28/20 02/29/20 03/01/20 03/02/20 23:59 23:59 23:59 23:59 Intake Total 1430 1250 1990 480 Output Total 1800 400 800 Balance -840 661 0326 480 Meds/Results Medications: Active Medications Generic Name Dose Route Start Last Admin Trade Name Freq PRN Reason Stop Dose Admin Al Hydrox/Mg Hydrox/Simethicone 30 ml 02/29/20 10:15 Mylanta PO Q6H PRN Indigestion Furosemide 40 mg 03/01/20 21:00 03/01/20 21:23 Lasix Tablet PO 40 mg Q12H RALF Administration Guaifenesin/Dextromethorphan 10 ml 02/28/20 16:27 03/02/20 04:43 Robitussin-Dm Syrup PO 10 ml Q4H PRN Administration Cough Lisinopril 5 mg 02/28/20 09:00 03/01/20 08:46 Prinivil PO 5 mg DAILY RALF Administration Lorazepam 1 mg 02/29/20 21:00 03/01/20 21:23 Ativan Tab PO 1 mg HS RALF Administration Lorazepam 1 mg 02/29/20 15:29 03/02/20 04:43 Ativan Tab PO 1 mg Q4HR PRN Administration Anxiety Melatonin 10 mg 02/29/20 21:00 03/01/20 21:22 Melatonin PO 10 mg HS RALF Administration Metoprolol Succinate 25 mg 02/28/20 09:00 03/01/20 08:47 Toprol Xl PO 25 mg DAILY RALF Administration Neomycin/Polymyxin/Bacitracin 1 applic 02/29/20 10:15 03/01/20 08:47 Triple Antibiotic Ointment TOPICAL 1 applic QAM RALF Administration Sertraline HCl 25 mg 02/28/20 21:00 03/01/20 21:23 Zoloft PO 25 mg HS RALF Administration Radiology Results: ITS Impressions Chest X-Ray 02/27/20 18:29 IMPRESSION: Extensive bilat
[2020-03-02] MEDS: FUROSEMIDE 40 MG TABLET PO (09:15)
[2020-03-02] MEDS: lisinopriL 5 MG TABLET PO (09:15)
[2020-03-02] MEDS: NEOMYCIN/POLYMYXIN/BACITRACIN OINTMENT 15 GM TUBE 1 APPLIC TOPICAL (09:15)
[2020-03-02 09:16] VITALS: PULSE 96
[2020-03-02] MEDS: METOPROLOL SUCCINATE EXT REL 25 MG TABCR PO (09:16)
--- NOTE | 2020-03-02 11:01 | PM.IMPN ---
Subjective Date/time seen: 03/02/20 11:01 Objective Data Vital Signs Vital Signs: Vital Signs - 24 hr 03/01/20 14:00 03/01/20 17:26 03/01/20 22:00 Temperature 97.4 F L 98.2 F Pulse Rate 102 H 100 Respiratory Rate 26 H 24 H Blood Pressure 89/67 L 107/77 107/75 Pulse Oximetry 95 95 03/02/20 05:55 03/02/20 09:16 Temperature 98.1 F Pulse Rate 42 L 96 Respiratory Rate 22 H Blood Pressure 108/71 Pulse Oximetry 97 Intake/Output Intake/Output: Intake & Output 02/28/20 02/29/20 03/01/20 03/02/20 23:59 23:59 23:59 23:59 Intake Total 1430 1250 1990 480 Output Total 1800 400 800 Balance -912 647 9531 480 Meds/Results Medications: Active Medications Generic Name Dose Route Start Last Admin Trade Name Freq PRN Reason Stop Dose Admin Al Hydrox/Mg Hydrox/Simethicone 30 ml 02/29/20 10:15 Mylanta PO Q6H PRN Indigestion Furosemide 40 mg 03/01/20 21:00 03/02/20 09:15 Lasix Tablet PO 40 mg Q12H RALF Administration Guaifenesin/Dextromethorphan 10 ml 02/28/20 16:27 03/02/20 09:15 Robitussin-Dm Syrup PO 10 ml Q4H PRN Administration Cough Lisinopril 5 mg 02/28/20 09:00 03/02/20 09:15 Prinivil PO 5 mg DAILY RALF Administration Lorazepam 1 mg 02/29/20 21:00 03/01/20 21:23 Ativan Tab PO 1 mg HS RALF Administration Lorazepam 1 mg 02/29/20 15:29 03/02/20 09:15 Ativan Tab PO 1 mg Q4HR PRN Administration Anxiety Melatonin 10 mg 02/29/20 21:00 03/01/20 21:22 Melatonin PO 10 mg HS RALF Administration Metoprolol Succinate 25 mg 02/28/20 09:00 03/02/20 09:16 Toprol Xl PO 25 mg DAILY RALF Administration Neomycin/Polymyxin/Bacitracin 1 applic 02/29/20 10:15 03/02/20 09:15 Triple Antibiotic Ointment TOPICAL 1 applic QAM RALF Administration Sertraline HCl 25 mg 02/28/20 21:00 03/01/20 21:23 Zoloft PO 25 mg HS RALF Administration Radiology Results: ITS Impressions Chest X-Ray 02/27/20 18:29 IMPRESSION: Extensive bilateral airspace disease could be edema given the cardiomegaly. Infection, acute lung injury not excludable. Chest/Abdomen/Pelvis CTA 02/27/20 21:46 IMPRESSION: 1. Moderate cardiomegaly, development of small pericardial effusion. 2. Extensive bilateral perihilar airspace disease, could be edema, acute lung injury and/or infection. Please clinically correlate. 3. Progression anasarca and now moderate ascites. 4. Heterogeneous liver density unchanged. Lexiscan Stress Test 03/01/20 13:25 IMPRESSION: 1. Small area of mild infarct involving mid anterior and mid anteroseptal segments of left ventricle. 2. Global hypokinesis with left ventricular ejection fraction measuring 18%. 3. Left ventricular enlargement of the heart. Labs Labs: Laboratory Results - last 24 hr 03/01/20 03/01/20 03/01/20 10:35 10:35 10:35 Sodium 131 L Potassium 4.5 Chloride 99 Carbon Dioxide 25 BUN 39 H Creatinine 1.20 Estim Creat Clear Calc 79 Estimated GFR > 60 Glucose 122 H Calcium 8.2 L Iron 38 L TIBC 238 L % Saturation 16 L Total Bilirubin 1.6 H AST 47 ALT 76 H Alkaline Phosphatase 79 C-Reactive Protein 5.7 H Total Protein 6.0 L Albumin 2.8 L Vitamin B12 865.0 Folate 16.4 Hep Bs Antigen Negative Hepatitis C Ab Screen Reactive HIV 1&2 Ab/P24 Ag 4thGn Negative Quality VTE Prophylaxis VTE prophylaxis: mechanical ordered
--- NOTE | 2020-03-02 12:37 | PM.DS ---
DS: Summary Hospital Course Reason for hospitalization: dyspnea Hospital Course: pt with known CM presented with increased dyspnea. Imaging c/w CHF. No DE. SARS-CoV-2 rt-PCR negative. Responded well to diuresis. Seen by cardiology. At first refused, then agreed to LifeVest. Status at Discharge Functional status at discharge: independent ambulation Overall status at discharge: patient is back to baseline Time Spent with Patient Time attestation: Total time spent providing and/or coordinating discharge services: DS: Data Data Completed and Pending Labs on day of discharge: Labs from last 24 hours 03/01/20 03/01/20 10:35 10:35 Iron 38 L TIBC 238 L % Saturation 16 L Vitamin B12 865.0 Folate 16.4 Preliminary micro results at discharge 02/27/20 22:01 Blood Culture - Preliminary Blood Coag negative Staphylococcus 02/27/20 22:01 Blood Culture - Preliminary Blood Discharge Plan Discharge Consulting providers: Tammi Kennedy ; Jet Bains ; Rah Betancourt ; Deshaun Johnson V. Discharging Clinician: Gilbert Peace Patient Disposition: Home, Self-Care Activity: no straining and no driving Diet: low sodium Discharge Instructions: Care Coordination: Patient has New patient primary care appointment scheduled with [facility] in [place] [phone] on ThursdayMarch 06 at 1p. Due to COVID 19 they will call patient via phone, so please be by your phone at your appointment time. Your LifeVest will be delivered to your home. Patient Instructions: Heart Failure (DC), Methamphetamine Abuse (DC) Stand Alone Forms: General Discharge Information Follow-up/Referrals: Jet Bains DO [Physician] - 2 Weeks PHYSICIAN,LODE MINER BLASTING [Primary Care Provider] - Keep Reg. Scheduled Appt. (Keep appt at [facility] in [place] for next week. ) Discharge Medications: New Triple Antibiotic 3.5mg-400 unit- 5,000 unit/gram Ointment 1 applic topical QAM Qty: 15 RF: 0 lorazepam 1 mg Tablet 1 mg PO Q6H PRN (Reason: Anxiety) Qty: 20 RF: 0 melatonin 5 mg Tablet 10 mg PO HS Qty: 60 RF: 0 spironolactone 25 mg tablet 25 mg PO DAILY Qty: 30 RF: 0 Continued furosemide 80 mg tablet 80 mg PO DAILY Qty: 30 RF: 0 sertraline 25 mg tablet 25 mg PO HS Qty: 30 RF: 0 lisinopril 5 mg tablet 5 mg PO DAILY Qty: 30 RF: 0 metoprolol succinate 25 mg tablet extended release 24 hr 25 mg PO DAILY Qty: 30 RF: 0 No Action benzonatate [Tessalon Perles] 100 mg capsule 100 mg PO TID PRN (Reason: cough) Qty: 20 RF: 0 Date of admission: 02/29/20 16:21 Primary Care Provider: PHYSICIAN,LODE MINER BLASTING Admitting Provider: Nasim Hou Discharge Date/Time: 03/02/20 13:25 Attending physician on admission: Gilbert Peace Condition: Guarded Prognosis Quality VTE Prophylaxis VTE prophylaxis: mechanical ordered
--- NOTE | 2020-03-02 13:15 | PC.NURSE ---
spoke with Dr. Bains to inform him of patient discharge and that pt is refusing to wait for life vest. he requests patient follows up in 2 weeks.
== END 2020-03-02 13:25 | disposition home or self-care (01) | DRG 194 ==
LOC: ANHED 23:33 → ANHICU 23:50 → ANH2MED 02-28 18:26
PROVIDERS: Emergency Medicine; Internal Medicine Cardiovascular Disease; Admitting Provider Family Medicine; Emergency Provider General Practice; Visit Provider Internal Medicine
DX: I50.23 Acute on chronic systolic (congestive) heart failure; I42.0 Dilated cardiomyopathy; F15.10 Other stimulant abuse, uncomplicated; F17.200 Nicotine dependence, unspecified, uncomplicated; B19.20 Unspecified viral hepatitis C without hepatic coma; D64.9 Anemia, unspecified; Z20.828 Contact with and (suspected) exposure to other viral communicable diseases; Z79.899 Other long term (current) drug therapy
CPT/HCPCS: 36415; 36600; 71046; 71275; 74174; 78452; 80048; 80053; 80076; 81001; 82375; 82607; 82746; 82805; 83050; 83540; 83550; 83605; 83735; 83880; 84443; 84484; 85025; 85027; 85610; 85730; 86140; 86703; 86803; 87040; 87077; 87186; 87340; 87522; 87635; 93005; 93017; 93306; 96365; 96375; 96376; 99285; A9270; A9502; G0378; G0432; J0131; J0780; J1940; J2060; J2405; J2785; Q9967; U0003

== ENCOUNTER 2020-03-04 03:36 | Emergency (ER) | payer BC, SELFPAY ==
[2020-03-04 03:49] VITALS: BP 152/124; PULSE 110; RESP 22; O2SAT 98
[2020-03-04 04:15] VITALS: BP 102/79; PULSE 110; RESP 18; O2SAT 97
[2020-03-04] MEDS: PROMETHAZINE HCL 25 MG/ML AMPUL 12.5 MG IV PUSH (04:15)
[2020-03-04 04:18] LABS: Basophils Percent Auto 0.1 % (0.2-1.2); Eosinophils Percent Auto 0.1 % (0-4.4); Hematocrit 38.2 % (42.0-52.0); Hemoglobin 12.6 g/dL (14.0-18.0); Immature Granulocyte Absolute 0.06 K/mm3 (0.00-0.031); Immature Granulocyte Percent A 0.4 % (0-0.5); Lymphocytes Absolute Auto 1.65 K/mm3 (0.9-3.2); Lymphocytes Percent Auto 11.8 % (18.3-44.2); Mean Platelet Volume 11.1 fl (7.4-10.4); Monocytes Absolute Auto 0.8 K/mm3 (0.1-0.6); Monocytes Percent Auto 5.8 % (2.6-8.5); Neutrophils Absolute Auto 11.5 K/mm3 (1.3-6.7); Neutrophils Percent Auto 81.8 % (45.5-73.1); Platelet Count Result 264 k/mm3 (150-375); Red Blood Count 3.94 M/mm3 (4.6-6.20); Red Cell Distribution Width 18.4 % (11.5-14.5)
[2020-03-04 04:34] LABS: Alanine Aminotransferase 75 U/L (4-50); Albumin Level 2.9 g/dL (3.5-5.1); Alkaline Phosphatase 108 U/L (38-126); Aspartate Amino Transferase 73 U/L (17-59); Bilirubin,Total 1.3 mg/dL (0.2-1.3); Blood Urea Nitrogen 31 mg/dL (9-20); Calcium 7.6 mg/dL (8.4-10.2); Carbon Dioxide 26 mmol/L (22-30); Chloride 95 mmol/L (98-107); Estimated CRCL calculation 99 ml/min; Estimated Glomerular Filt Rate > 60; Glucose 115 mg/dL (75-110); Lipase 52 U/L (23-300); Potassium 3.8 mmol/L (3.4-5.0); Sodium 130 mmol/L (137-145)
--- NOTE | 2020-03-04 04:58 | ED.NAVMDI ---
HPI - Nausea/Vomiting/Diarrhea General Chief complaint: Nausea/Vomiting/Diarrhea Stated complaint: n/v Time Seen by Provider: 03/04/20 03:44 History of Present Illness HPI Narrative: Patient is a 29-year-old male who presents the ER with nausea and vomiting. Patient was discharged from the hospital approximately 12 hours ago. Patient has history of CHF with an ejection fraction of 10 to 15%. This is a result of IV drug use. Last methamphetamine use was 2 days prior to his previous admission. Patient reports upon arriving home he started having nausea and vomiting. Cannot quantify how much he is vomited. Denies any new chest pain or shortness of breath or abdominal pain. He has had no fevers or chills or sweats. He does not have any antinausea medicine to control his symptoms at home. Patient is currently awaiting a life jacket that has been ordered. Patient reports he has not yet gone to the pharmacy to fill his medications that were prescribed at discharge. Related Data Allergies Allergy/AdvReac Type Severity Reaction Status Date / Time No Known Allergies Allergy Verified 02/27/20 17:46 Review of Systems Review of Systems: All systems reviewed & are unremarkable except as noted in HPI and below Constitutional: Constitutional: Denies chills, Denies fever(s) and Denies weakness ENT: Denies nasal congestion and Denies sore throat Cardiovascular: Cardiovascular: Denies chest pain and Denies radiating jaw, neck or arm pain Respiratory: Respiratory: Denies cough and Denies dyspnea Gastrointestinal: Gastrointestinal: Denies abdominal pain, Denies diarrhea, Reports nausea and Reports vomiting PMFSH Past Medical History Medical History (Updated 03/04/20 @ 05:29 by Eugenio Simmons MD) CHF (congestive heart failure) Hepatitis C Nonischemic cardiomyopathy Surgical History Surgical History (Updated 03/04/20 @ 05:04 by Eugenio Simmons MD) No pertinent past surgical history Social History Social History Smoking packs per day: 1 Smoking cigarettes per day: 20.0 Years smoked: 10 Smoking pack-years: 10.00 Smoking status: Current some day smoker Alcohol intake: former Substance use: current Substance use type: marijuana and methamphetamine Gender identity (if verbalized by the patient): Male Spiritual care concerns: No Exam Narrative: Exam Narrative: GENERAL: Chronically ill-appearing, well-nourished, and in no acute distress. Being very hostile with nursing staff. HEAD: Normocephalic, atraumatic. EYES: PERRL and EOMI. ENT: Mucous membranes moist. CHEST: Clear to auscultation. No respiratory distress. HEART: Regular rate and rhythm. Normal peripheral pulses. ABDOMEN: Soft, nontender, nondistended. EXTREMITIES: Normal range of motion. Normal strength. SKIN: Warm, dry, no rash. NEURO: Alert and oriented x3. Course Course Emergency Course: Patient informed of results. Leukocyte ptosis is very mild compared to previous, may be related to vomiting. Patient now reports that he he would like some cough medication because he only came to the ER to be evaluated for cough and the reason he needs this medicine is because it makes his traps hurt. Discussed that we can send him home with some Tessalon Perles. Patient received Phenergan for nausea and vomiting. He is tolerating oral fluids without issue and is eaten a Twix bar. Vital Signs Vital signs: Vital Signs Pulse Rate 110 H 03/04/20 03:49 Respiratory Rate 22 H 03/04/20 03:49 Blood Pressure 152/124 H 03/04/20 03:49 Pulse Oximetry 98 03/04/20 03:49 Pulse Rate 110 H 03/04/20 04:15 Respiratory Rate 18 03/04/20 04:15 Blood Pressure 102/79 03/04/20 04:15 Pulse Oximetry 97 03/04/20 04:15 MDM - Nausea/Vomiting/Diarrhea Lab Data Result diagrams: 03/04/20 04:12 03/04/20 04:12 Labs: Lab Results 03/04/20 03/04/20 Range/Units
[2020-03-04 05:48] VITALS: BP 155/102; PULSE 108; RESP 20; TEMP 37.1; O2SAT 94
== END 2020-03-04 05:52 | disposition home or self-care (01) ==
PROVIDERS: Emergency Provider Emergency Medicine
DX: R11.2 Nausea with vomiting, unspecified (principal); R05 Cough; I50.9 Heart failure, unspecified; F17.210 Nicotine dependence, cigarettes, uncomplicated
CPT/HCPCS: 36415; 80053; 83690; 85025; 96374; 99284; J2550

== ENCOUNTER 2020-03-11 19:53 | Inpatient (IN) | payer BC, SELFPAY ==
--- NOTE | ~2020-03-11 | CT_ITS ---
EXAMINATION: CTA chest PE protocol DATE: 03/14/2020 09:23 INDICATION: Hemoptysis. Tachycardia. TECHNIQUE: Computed tomography angiography (CTA) of the chest was performed with 100 mL Omnipaque-350 intravenous contrast timed to evaluate the pulmonary arteries. Coronal maximum intensity projection 3D-reconstructions were created by the technologist. Automated exposure control and iterative reconst ruction technique were employed. The dose-length product was 388.25 mGy-cm. COMPARISON: Chest CT 02/27/2020 FINDINGS: There are patchy airspace and groundglass opacities in all lobes, right worse than left. Th ere is widespread smooth septal thickening in the lungs. There are small pleural effusions, right wor se than left. Cardiomegaly is noted. There is a small pericardial effusion. There is no pulmonary emb olus. There is widespread body wall edema. The visualized portions of the upper abdomen demonstrate a scites. There is mild thoracic spondylosis. IMPRESSION: 1. No pulmonary embolus. 2. Diffuse lung disease, likely a combination of pulmonary edema and multifocal pneumonia. 3. Anasarca including small pleural effusions, ascites, small pericardial effusion, and body wall jennifer ma. 4. Cardiomegaly. Reviewed, dictated and finalized at location A. IMPRESSION: 1. No pulmonary embolus. 2. Diffuse lung disease, likely a combination of pulmonary edema and multifocal pneumonia. 3. Anasarca including small pleural effusions, ascites, small pericardial effus ion, and body wall edema. 4. Cardiomegaly.
--- NOTE | ~2020-03-11 | XR_ITS ---
EXAMINATION: XR chest 2V EXAM DATE: 03/11/2020 21:11 INDICATION: Shortness of breath, coughing up blood. CHF, liver failure. TECHNIQUE: Frontal and lateral projections of the chest obtained and reviewed. Comparison is made to prior examination from 02/27/2020, 02/05/2020, 12/16/2007. FINDINGS: Again there is moderate cardiomegaly, and moderate bilateral airspace disease, differential diagnosis including infection, acute lung injury, edema. No sizable pleural effusions. There is no p neumothorax suspected. There are no osseous abnormalities identified. Accounting for differences in t echnique, there is no significant interval change. IMPRESSION: 1. Moderate cardiomegaly. 2. Moderate amount of bilateral airspace disease not significantly changed. Reviewed, dictated and finalized at location A.
[2020-03-11 19:57] VITALS: BP 144/96; PULSE 121; RESP 30; TEMP 37.2; O2SAT 98
--- NOTE | 2020-03-11 20:01 | ECG_ITS ---
Measurements Intervals [place] Rate: 122 P: 29 LA: 146 QRS: -34 QRSD: 97 T: 53 QT: 305 QTc: 435 Interpretive Statements SINUS TACHYCARDIA BORDERLINE R WAVE PROGRESSION, ANTERIOR LEADS INFERIOR INFARCT, AGE INDETERMINATE BORDERLINE T WAVE ABNORMALITY- HIGH LATERAL LEADS ABNORMAL ECG Electronically Signed On 03-12-2020 7:05:33 CDT by Jet Bains D.O.
[2020-03-11 20:11] VITALS: PULSE 121; O2SAT 98
--- NOTE | 2020-03-11 20:16 | ED.SOB ---
HPI - SOB/Dyspnea General Chief Complaint: Shortness of Breath/Dyspnea Stated Complaint: coughing up blood, edema Time Seen by Provider: 03/11/20 20:03 History of Present Illness HPI Narrative: 29 yo male with h/o CHF and EF of 10-15% present with SOB, nausea and vomiting. He reports that he has been having these symptoms for months. He has had multiple recent hospitalizations for the same. Symptoms became worse this evening. In additiona he began coughing up a small amount of blood. He has had multiple negative tests for COVID-19. Related Data Allergies Allergy/AdvReac Type Severity Reaction Status Date / Time No Known Allergies Allergy Verified 02/27/20 17:46 Review of Systems Constitutional: Constitutional: Denies chills and Denies fever(s) ENT: Denies sore throat Cardiovascular: Cardiovascular: Denies chest pain Respiratory: Respiratory: Reports cough and Reports dyspnea Gastrointestinal: Gastrointestinal: Denies constipation, Denies diarrhea, Reports nausea and Reports vomiting Genitourinary: Genitourinary: Denies hematuria PMFSH Past Medical History Medical History CHF (congestive heart failure) Hepatitis C Nonischemic cardiomyopathy Surgical History Surgical History No pertinent past surgical history Social History Social History Smoking packs per day: 1 Smoking cigarettes per day: 20.0 Years smoked: 10 Smoking pack-years: 10.00 Smoking status: Former smoker Smoking end date: 03/11/19 Additional smoking assessment comments: doesn't know how long he smoked before quitting Alcohol intake: never Substance use: unknown Substance use type: marijuana and methamphetamine Gender identity (if verbalized by the patient): Male Spiritual care concerns: No Exam Const: General: alert and ill appearing acutely and chronically Orientation/consciousness: patient oriented x3 Other: Mild distress HENMT: Head: normal to inspection Resp: Effort & Inspection: labored and tachypneic Auscultation: rales Cardio: Jugular venous distension: no JVD Rate: tachycardic Rhythm: regular rhythm GI: Inspection: non-distended GI Palp: Yes Soft to palpation and No Tenderness to palpation present (GI) Skin: General skin exam: normal color Neuro: General: patient oriented x3, moves all extremities, no focal motor deficits and CN's II-XI intact bilaterally Speech: normal speech Extrem: General: edema bilateral Psych: Appearance: well kempt Mental Status: mental status grossly normal Course Vital Signs Vital signs: Vital Signs Temperature 37.2 C 03/11/20 19:57 Pulse Rate 121 H 03/11/20 19:57 Respiratory Rate 30 H 03/11/20 19:57 Blood Pressure 144/96 H 03/11/20 19:57 Pulse Oximetry 98 03/11/20 19:57 Temperature 36.3 C L 03/11/20 23:05 Pulse Rate 116 H 03/12/20 00:00 Respiratory Rate 20 03/11/20 23:05 Blood Pressure 100/76 03/11/20 23:05 Pulse Oximetry 99 03/11/20 23:05 MDM - SOB/Dyspnea MDM Narrative Medical decision making narrative: He has severe CHF with current findings suggesting an exacerbation. I will plan to admit. Differential Diagnosis Differential diagnosis: Likely congestive heart failure Medical Records Attestation: I reviewed the patient's medical records. Lab Data Attestation: I reviewed the patient's lab results. Result diagrams: 03/11/20 20:33 03/11/20 20:33 Labs: Lab Results 03/11/20 03/11/20 03/11/20 Range/Units 20:33 20:33 20:33 WBC 12.6 H (4.5-10.0) K/mm3 RBC 4.20 L (4.6-6.20) M/mm3 Hgb 13.2 L (14.0-18.0) g/dL Hct 40.3 L (42.0-52.0) % MCV 96.0 (80-100) fl MCH 31.4 (26-34) pg MCHC 32.8 (32-36) g/dl RDW 18.3 H (11.5-14.5) % Plt Count 328 (150-375) k/mm3 MPV 10.3 (7.4-10.4) fl Im
[2020-03-11 20:41] LABS: Basophils Percent Auto 0.2 % (0.2-1.2); Eosinophils Absolute Auto 0.1 K/mm3 (0-0.3); Eosinophils Percent Auto 0.6 % (0-4.4); Hematocrit 40.3 % (42.0-52.0); Hemoglobin 13.2 g/dL (14.0-18.0); Immature Granulocyte Absolute 0.05 K/mm3 (0.00-0.031); Immature Granulocyte Percent A 0.4 % (0-0.5); Lymphocytes Absolute Auto 2.85 K/mm3 (0.9-3.2); Lymphocytes Percent Auto 22.7 % (18.3-44.2); Mean Corpuscular HGB Conc 32.8 g/dl (32-36); Mean Corpuscular Hemoglobin 31.4 pg (26-34); Mean Platelet Volume 10.3 fl (7.4-10.4); Monocytes Absolute Auto 0.9 K/mm3 (0.1-0.6); Monocytes Percent Auto 6.8 % (2.6-8.5); Neutrophils Absolute Auto 8.7 K/mm3 (1.3-6.7); Neutrophils Percent Auto 69.3 % (45.5-73.1); Platelet Count Result 328 k/mm3 (150-375); Red Cell Distribution Width 18.3 % (11.5-14.5); White Blood Count 12.6 K/mm3 (4.5-10.0)
[2020-03-11 20:54] LABS: INR 2.1; Prothrombin Time 22.8 Seconds (11.1-14.7)
[2020-03-11 20:55] LABS: Alanine Aminotransferase 62 U/L (4-50); Albumin Level 3.2 g/dL (3.5-5.1); Alkaline Phosphatase 143 U/L (38-126); Aspartate Amino Transferase 68 U/L (17-59); Bilirubin,Total 0.9 mg/dL (0.2-1.3); Blood Urea Nitrogen 36 mg/dL (9-20); Calcium 7.7 mg/dL (8.4-10.2); Carbon Dioxide 25 mmol/L (22-30); Chloride 94 mmol/L (98-107); Estimated CRCL calculation 97 ml/min; Estimated Glomerular Filt Rate > 60; Glucose 123 mg/dL (75-110); Partial Thromboplastin Time 28.3 SECONDS (22.3-36.8); Sodium 129 mmol/L (137-145)
[2020-03-11 21:11] VITALS: BP 122/84; PULSE 118; RESP 29; O2SAT 97
[2020-03-11 21:11] LABS: NT Pro B Type Natriuretic Pept 18200 PG/ML (5-100); Troponin I 0.035 ng/mL (0.000-0.034)
[2020-03-11] MEDS: FUROSEMIDE INJ 40 MG/4 ML VIAL IV PUSH (21:31)
[2020-03-11 22:15] VITALS: PULSE 117
[2020-03-11] MEDS: METOPROLOL TARTRATE INJ 5 MG/5 ML VIAL 2.5 MG IV PUSH (22:15)
[2020-03-11 22:17] VITALS: BP 117/86; PULSE 119; RESP 22; O2SAT 93
--- NOTE | 2020-03-11 23:04 | ADMGEN ---
This patient, Jesus Yancey, was admitted to IMU Room 203-01. Patient/family oriented to hospital policies and general routines including ID bracelet, bed and alarms, visiting hours, pain management, procedures, bathroom and other care routines, personal items, smoking policy, room service/diet, and visiting hours. Valuables list has been completed. Information on how to activate the Rapid Response Team has been discussed. Patient/Family are encouraged to report perceived risks to care and to ask questions if they do not understand what they are told or what they should do. pt arrived at 2300 03/12/20 from [facility]
[2020-03-11 23:05] VITALS: BP 100/76; PULSE 145; RESP 20; TEMP 36.3; O2SAT 99; BMI 27.7
--- NOTE | 2020-03-11 23:38 | PM.IMHP ---
H&P: HPI History of Present Illness Chief complaint: CHF exacerbation Narrative: This is a 29 year old male with known chornic systolic heart failure and history of methamphetamine abuse who tonight presented to the hospital with a complaint of acute severe shortness of breath that started today. He also complains of worsening lower extremity swelling over the past few days. He was recently admitted to the hospital two weeks ago and Echocardiogram demonstrated an EF of 10-15%. The patient was supposed to get a lifevest but claims that no one ever came to his house. Tonight the patient also complains of intermittent left sided chest pain but believes it might be due to recent panic attacks. He denies any chest pain on my encounter with him. He claims that he has been taking his home medications as prescribed and denies any current use of tobacco products or IV drugs. He does however admit to smoking marijuana. On further review he denies any fevers, chills, coughing, abdominal pain, dysuria, hematuria, diarrhea or rectal bleeding. The patient recently tested negative for COVID-19. Review of Systems Review of Systems: All systems reviewed & are unremarkable except as noted in HPI and below PMFSH Past Medical History Medical History CHF (congestive heart failure) Hepatitis C Nonischemic cardiomyopathy Surgical History Surgical History No pertinent past surgical history Social History Social History Smoking packs per day: 1 Smoking cigarettes per day: 20.0 Years smoked: 10 Smoking pack-years: 10.00 Smoking status: Former smoker Smoking end date: 03/11/19 Additional smoking assessment comments: doesn't know how long he smoked before quitting Alcohol intake: never Substance use: unknown Substance use type: marijuana and methamphetamine Gender identity (if verbalized by the patient): Male Spiritual care concerns: No Comments Past family medical history is reviewed and noncontributory. Meds Home Medications and Allergies Home Medications Medication Instructions Recorded Confirmed Type furosemide 80 mg PO DAILY #30 tablet 03/02/20 03/12/20 Rx lorazepam 1 mg PO Q6H PRN #20 tablet 03/02/20 03/12/20 Rx metoprolol succinate 25 mg PO DAILY #30 tablet 03/02/20 03/12/20 Rx sertraline 25 mg PO HS #30 tablet 03/02/20 03/12/20 Rx spironolactone 25 mg PO DAILY #30 tablet 03/02/20 03/12/20 Rx benzonatate [Tessalon Perles] 100 mg PO TID PRN #20 cap 03/04/20 03/12/20 Rx Allergies Allergy/AdvReac Type Severity Reaction Status Date / Time No Known Allergies Allergy Verified 02/27/20 17:46 Vital Signs Vital Signs - 24 hr 03/11/20 19:57 03/11/20 20:11 03/11/20 21:11 Temperature 37.2 C Pulse Rate 121 H 121 H 118 H Respiratory Rate 30 H 29 H Blood Pressure 144/96 H 122/84 Pulse Oximetry 98 98 97 03/11/20 22:15 03/11/20 22:17 03/11/20 23:05 Temperature 36.3 C L Pulse Rate 117 H 119 H 63 Respiratory Rate 22 H 20 Blood Pressure 117/86 100/76 Pulse Oximetry 93 99 Exam Const: General: cooperative, alert, awake and ill appearing chronically Nutritional Appearance: overweight Orientation/consciousness: patient oriented x3 HENMT: Head: normal to inspection General nose exam: Normal external nose present Face and sinus: normal facial exam Mouth: Yes Normal oral and palatal mucosa present and Yes oropharynx normal Eyes: Pupils: Equal, round and reactive pupils present EOM: EOMs intact bilaterally Neck: Neck: supple and no JVD Thyroid: thyroid normal Lymphatic: lymphadenopathy not noted Resp: Effort & Inspection: tachypneic Auscultation: crackles (bibasilar+) Cardio: Rate: tachycardic Rhythm: regular rhythm Heart sounds: no murmurs GI: Inspection: normal to inspection Auscultation: normal bowel sounds Skin:
[2020-03-12] VITALS (14 sets, daily range): BP systolic 104–110; BP diastolic 56–73; PULSE 100–120; RESP 18–26; TEMP 35.8–36.6; O2SAT 93–99
[2020-03-12] MEDS: LORAZEPAM 0.5 MG TABLET PO (00:15)
[2020-03-12 04:54] LABS: Basophils Percent Auto 0.2 % (0.2-1.2); Eosinophils Percent Auto 0.3 % (0-4.4); Hematocrit 38.6 % (42.0-52.0); Hemoglobin 12.5 g/dL (14.0-18.0); Immature Granulocyte Absolute 0.03 K/mm3 (0.00-0.031); Immature Granulocyte Percent A 0.3 % (0-0.5); Lymphocytes Absolute Auto 2.33 K/mm3 (0.9-3.2); Lymphocytes Percent Auto 23.2 % (18.3-44.2); Mean Corpuscular HGB Conc 32.4 g/dl (32-36); Mean Corpuscular Hemoglobin 30.9 pg (26-34); Mean Corpuscular Volume 95.5 fl (80-100); Mean Platelet Volume 10.4 fl (7.4-10.4); Monocytes Absolute Auto 0.7 K/mm3 (0.1-0.6); Monocytes Percent Auto 7.4 % (2.6-8.5); Neutrophils Absolute Auto 6.9 K/mm3 (1.3-6.7); Neutrophils Percent Auto 68.6 % (45.5-73.1); Platelet Count Result 271 k/mm3 (150-375); Red Blood Count 4.04 M/mm3 (4.6-6.20); Red Cell Distribution Width 18.5 % (11.5-14.5)
[2020-03-12 05:01] LABS: Amphetamine Screen Urine Negative (Negative); Barbiturate Screen Urine Negative (Negative); Benzodiazepines Screen Urine Negative (Negative); Cannabinoid Screen Urine Positive (Negative); Cocaine Screen Urine Negative (Negative); Methadone Screen Urine Negative (Negative); Opiate Screen Urine Negative (Negative); Phencyclidine Screen Urine Negative (Negative)
[2020-03-12 05:20] LABS: Blood Urea Nitrogen 34 mg/dL (9-20); Calcium 7.9 mg/dL (8.4-10.2); Carbon Dioxide 31 mmol/L (22-30); Chloride 94 mmol/L (98-107); Estimated CRCL calculation 120 ml/min; Estimated Glomerular Filt Rate > 60; Glucose 95 mg/dL (75-110); Potassium 3.4 mmol/L (3.4-5.0); Sodium 129 mmol/L (137-145)
[2020-03-12] MEDS: ENOXAPARIN 40 MG/0.4 ML SYRINGE SUB-Q (09:17)
[2020-03-12] MEDS: FUROSEMIDE INJ 40 MG/4 ML VIAL IV PUSH ×2 (09:18→21:09)
[2020-03-12] MEDS: SPIRONOLACTONE 25 MG TABLET PO (09:18)
[2020-03-12] MEDS: METOPROLOL SUCCINATE EXT REL 25 MG TABCR PO (09:18)
--- NOTE | 2020-03-12 10:31 | PM.CNCAR ---
Assessment and Plan Assessment and plan (1) Acute systolic heart failure: Code(s): I50.21 - Acute systolic (congestive) heart failure Status: Acute Assessment and Plan: Acute on chronic systolic heart failure. On Metoprolol succinate. Add Lisinopril 2.5 mg daily. On Spironolactone. Lasix 40 mg IV BID while in hospital. Life Vest to be reordered to prevent sudden cardiac arrest. Advised against using illicit drugs and he states he is using marijuana only to help him relax. Monitor electrolytes and kidney function. (2) Hepatitis C: Qualifiers: Viral hepatitis chronicity: unspecified Hepatic coma status: without hepatic coma Qualified Code(s): B19.20 - Unspecified viral hepatitis C without hepatic coma Code(s): B19.20 - Unspecified viral hepatitis C without hepatic coma Status: Chronic Assessment and Plan: INR 2.1 probably related to transaminitis or possible liver cirrhosis. (3) Hx of drug abuse: Code(s): F19.11 - Other psychoactive substance abuse, in remission Status: Chronic (4) Anxiety: Code(s): F41.9 - Anxiety disorder, unspecified Status: Acute History of Present Illness History of Present Illness Consult date/time: 03/12/20 10:31 Reason for consult: CHF. 29 year old man I saw 2 weeks ago in hospital for heart failure who has a history of non-ischemic cardiomyopathy probably due to methamphetamines, chronic systolic heart failure and history of methamphetamine abuse, panic attacks, paranoid schizophrenia, hepatitis C, non-compliance who last night presented to the hospital with a complaint of acute severe shortness of breath. He also complains of worsening lower extremity swelling over the past few days. States he was admitted to [facility] recently and diuresed. He was recently admitted to the hospital two weeks ago and Echocardiogram demonstrated an EF of 10-15%. The patient was supposed to get a lifevest but claims that no one ever came to his house. The patient also complains of intermittent left sided chest pain but believes it might be due to recent panic attacks. His edema of legs are moderate. He is coughing. States he smokes marijuana but did not use Methamphetamines since last here. NTpro BNP 18,200. CXR shows mod bilateral opacities likely CHF. EKG shows sinus tachycardia. Lexiscan nuclear stress test on 03/01/20 Negative for ischemia. Echo 02/29/20 EF 10-15%, severe LVE, mod RV hypokinesis, mild RVE, mild-mod MR, RVSP 49 mmHg. Reason For Visit: CHF exacerbation Review of Systems Review of Systems: All systems reviewed & are unremarkable except as noted in HPI and below Constitutional: Constitutional: Reports as per HPI Cardiovascular: Cardiovascular: Reports as per HPI, Reports chest pain and Reports leg edema Respiratory: Respiratory: Reports as per HPI and Reports dyspnea Gastrointestinal: Gastrointestinal: Reports as per HPI and Denies abdominal pain Neurologic: Reports as per HPI and Denies Abnormal speech present FOR[facility]LY [facility], [facility] Past Medical History Medical History CHF (congestive heart failure) Hepatitis C Nonischemic cardiomyopathy Surgical History Surgical History No pertinent past surgical history Social History Social History Smoking packs per day: 1 Smoking cigarettes per day: 20.0 Years smoked: 10 Smoking pack-years: 10.00 Smoking status: Former smoker Smoking end date: 03/11/19 Additional smoking assessment comments: doesn't know how long he smoked before quitting Alcohol intake: never Substance use: unknown Substance use type: marijuana and methamphetamine Gender identity (if verbalized by the patient): Male Spiritual care concerns: No Meds Home Medications and Allergies Home Medications Medication Instructions
--- NOTE | 2020-03-12 10:33 | PM.IMPN ---
Progress Note: A&P Assessment and Plan (1) Acute systolic heart failure: Code(s): I50.21 - Acute systolic (congestive) heart failure Status: Acute Assessment and Plan: Echo from 02/28 revealed EF <15[place] [address]. Cardiology, Dr. Bains, is on board. He appears hypervolemic with significant lower extremity edema. Cardiology is on board and recommendations are greatly appreciated Lisinopril initiated 03/12 per cardiology Continue spironolactone Continue metoprolol Continue diuresis with IV lasix Continue low sodium diet Continue daily weights Continue strict I & O Continue 1.5L fluid restriction LifeVest was ordered but the patient did not receive it. Dr. Bains is aware and will re-order. Continue to encourage abstinence from illicit drugs Continue to monitor (2) Chest pain: Qualifiers: Chest pain type: unspecified Qualified Code(s): R07.9 - Chest pain, unspecified Code(s): R07.9 - Chest pain, unspecified Status: Acute Assessment and Plan: He denies chest pain. Cardiology is on board and recommendations are greatly appreciated. (3) Elevated troponin: Code(s): R79.89 - Other specified abnormal findings of blood chemistry Status: Acute Assessment and Plan: Troponin was 0.035 which appears very close to his baseline which is elevated, likely due to his severe cardiomyopathy and CHF. He had a stress test 03/01 which revealed no ischemia and global hypokinesis with left EF measuring 18%. Cardiology is on board and recommendations are greatly appreciated (4) Chronic anemia: Code(s): D64.9 - Anemia, unspecified Status: Chronic Assessment and Plan: Normocytic. On review of previous labs, his H&H are stable and at baseline. Vitamin B12 and folate were checked 03/01 and sufficient. Iron studies were consistent with anemia of chronic disease. Continue to monitor (5) Hx of drug abuse: Code(s): F19.11 - Other psychoactive substance abuse, in remission Status: Chronic Assessment and Plan: Urine drug screen revealed cannabinoids. He reports he has not used any IV drugs or other substance recently. Continue to encourage cessation of substance use as his prognosis is very guarded if he does not remain abstinent (6) Anxiety: Code(s): F41.9 - Anxiety disorder, unspecified Status: Acute Assessment and Plan: He reports ongoing anxiety and panic. Cotninue lorazepam PRN Continue sertraline, he may benefit from titration in the outpatient setting (7) Hepatitis C: Qualifiers: Hepatic coma status: without hepatic coma Viral hepatitis chronicity: unspecified Qualified Code(s): B19.20 - Unspecified viral hepatitis C without hepatic coma Code(s): B19.20 - Unspecified viral hepatitis C without hepatic coma Status: Chronic Assessment and Plan: Hepatitis Ab screen was reactive 03/01 with additional studies still pending. Per hx, this is chronic. The patient reports he is not established with GI. Await hepatitis C PCR studies, they may need to be re-ordered as they were ordered 03/01 and are still pending Pt will need further evaluation and follow-up (8) Marijuana abuse: Code(s): F12.10 - Cannabis abuse, uncomplicated Status: Acute Assessment and Plan: Urine drug screen was positive for cannabinoids which he admits to. Continue to encouarge cessation (9) Transaminitis: Code(s): R74.0 - Nonspecific elevation of levels of transaminase and lactic acid dehydrogenase [LDH] Status: Acute Assessment and Plan: He has a hx of hepatitis C. LFTs are elevated. He has hepatic steatosis and hepatomegaly on CT. Continue to monitor (10) Positive blood culture: Code(s): R78.81 - Bacteremia Status: Acute Assessment and Plan: One blood culture from
[2020-03-12] MEDS: LORAZEPAM 1 MG TABLET PO ×2 (10:36→21:09)
[2020-03-12] MEDS: lisinopriL 2.5 MG TABLET PO (12:43)
--- NOTE | 2020-03-12 16:51 | PC.NURSE ---
[employer] rep called in and needs physical order signed and dated by Dr. Bains. Order form is on front of chart. Please advise Dr. Bains.
--- NOTE | 2020-03-12 20:34 | PC.NURSE ---
2000 PT. WAS TOLD NOT TO SHOWER DUE TO MONITORING/ NOTED MONITOR OFF/ FOUND PT. TAKING SHOWER.
[2020-03-12] MEDS: SERTRALINE HCL 25 MG TABLET PO (21:09)
[2020-03-13] VITALS (18 sets, daily range): BP systolic 98–113; BP diastolic 67–80; PULSE 104–133; RESP 18–108; TEMP 36–36.7; O2SAT 94–98
[2020-03-13] MEDS: LORAZEPAM 1 MG TABLET PO ×3 (03:29→20:18)
[2020-03-13 04:46] LABS: Hematocrit 41.4 % (42.0-52.0); Hemoglobin 13.3 g/dL (14.0-18.0); Mean Corpuscular HGB Conc 32.1 g/dl (32-36); Mean Corpuscular Hemoglobin 31.4 pg (26-34); Mean Corpuscular Volume 97.9 fl (80-100); Mean Platelet Volume 10.6 fl (7.4-10.4); Platelet Count Result 315 k/mm3 (150-375); Red Blood Count 4.23 M/mm3 (4.6-6.20); Red Cell Distribution Width 18.6 % (11.5-14.5); White Blood Count 10.6 K/mm3 (4.5-10.0)
[2020-03-13 05:01] LABS: Alanine Aminotransferase 47 U/L (4-50); Albumin Level 2.9 g/dL (3.5-5.1); Alkaline Phosphatase 119 U/L (38-126); Aspartate Amino Transferase 41 U/L (17-59); Bilirubin,Total 1.5 mg/dL (0.2-1.3); Blood Urea Nitrogen 33 mg/dL (9-20); Calcium 7.9 mg/dL (8.4-10.2); Carbon Dioxide 33 mmol/L (22-30); Chloride 93 mmol/L (98-107); Estimated CRCL calculation 97 ml/min; Estimated Glomerular Filt Rate > 60; Glucose 109 mg/dL (75-110); Potassium 3.8 mmol/L (3.4-5.0); Sodium 131 mmol/L (137-145)
--- NOTE | 2020-03-13 08:23 | PM.PNCARD ---
Progress Note: A&P Assessment and Plan (1) Hepatitis C: Qualifiers: Viral hepatitis chronicity: unspecified Hepatic coma status: without hepatic coma Qualified Code(s): B19.20 - Unspecified viral hepatitis C without hepatic coma Code(s): B19.20 - Unspecified viral hepatitis C without hepatic coma Status: Chronic (2) Methamphetamine abuse: Code(s): F15.10 - Other stimulant abuse, uncomplicated Status: Chronic Assessment and Plan: Couseled regarding quitting and effect it could have on his heart. (3) Acute exacerbation of CHF (congestive heart failure): Code(s): I50.9 - Heart failure, unspecified Status: Acute Assessment and Plan: Acute dilated cardiomyopathy with significant systolic dysfunction, EF 10-15%. No ischemia based on Lexiscan myoview stress test. On beta josi and delgado inhibitor. He agreed to Life vest and has been reordered. (4) NSVT (nonsustained ventricular tachycardia): Code(s): I47.2 - Ventricular tachycardia Status: Acute Assessment and Plan: 13 beat run NSVT on 03/12/20. Due to cardiomyopathy. Increase Metoprolol succinate 50 mg daily as tolerated. Subjective Date/time seen: 03/13/20 08:23 Denies chest pain. Has some sob. He went back to sleep as I was talking to him. Exam Const: General: comfortable and no acute distress Neck: Neck: no JVD Carotids: no bruits Resp: Auscultation: clear to auscultation bilaterally, no crackles, no rales, no rhonchi and no wheezes Cardio: Rate: regular rate Rhythm: regular rhythm Heart sounds: no murmurs GI: Inspection: non-distended Neuro: Speech: normal speech Extrem: Right lower extremity: edema Left lower extremity: edema Other: Mild edema of both legs Objective Data Vital Signs Vital Signs: Vital Signs - 24 hr 03/12/20 09:18 03/12/20 12:00 03/12/20 14:00 Temperature 96.5 F L Pulse Rate 116 H 115 H 118 H Respiratory Rate 20 Blood Pressure 105/71 Pulse Oximetry 99 03/12/20 16:00 03/12/20 18:00 03/12/20 19:58 Temperature 97.7 F 97.8 F Pulse Rate 118 H 116 H 115 H Respiratory Rate 18 20 Blood Pressure 107/67 110/60 Pulse Oximetry 97 95 03/12/20 20:00 03/12/20 21:56 03/12/20 23:49 Temperature 97.9 F Pulse Rate 120 H 120 H 112 H Respiratory Rate 20 Blood Pressure 105/56 L Pulse Oximetry 96 03/13/20 00:00 03/13/20 02:00 03/13/20 03:53 Temperature 98 F Pulse Rate 107 H 104 H 107 H Respiratory Rate 20 Blood Pressure 106/80 Pulse Oximetry 97 03/13/20 06:00 03/13/20 07:59 Temperature 97 F L Pulse Rate 110 H 110 H Respiratory Rate 20 Blood Pressure 98/67 L Pulse Oximetry 97 Intake/Output Intake/Output: Intake & Output 03/10/20 03/11/20 03/12/20 03/13/20 23:59 23:59 23:59 23:59 Intake Total 1260 350 Output Total 725 Balance 535 350 Meds/Results Medications: Active Medications Generic Name Dose Route Start Last Admin Trade Name Freq PRN Reason Stop Dose Admin Hydrocodone Bitart/Acetaminophen 1 tab 03/11/20 23:48 03/13/20 03:29 [place] 5-325 Mg PO 1 tab Q4H PRN Administration Moderate Pain (4-6) Benzonatate 100 mg 03/12/20 07:17 Tessalon Perles PO TID PRN cough Enoxaparin Sodium 40 mg 03/12/20 09:00 03/12/20 09:17 Lovenox SUB-Q 40 mg DAILY RALF Administration Furosemide 40 mg 03/12/20 09:00 03/12/20 21:09 Lasix Inj IV PUSH 40 mg Q12HR RALF Administration Lisinopril 2.5 mg 03/12/20 09:00 03/12/20 12:43 Prinivil PO 2.5 mg QAM RALF Administration Lorazepam 1 mg 03/12/20 07:17 03/13/20 03:29 Ativan Tab PO 1 mg Q6H PRN Administration Anxiety Metoprolol Succinate 25 mg 03/12/20 09:00 03/12/20 09:18 Toprol Xl PO 25 mg DAILY RALF Administration Sertraline HCl 25 mg 03/12/20 21:00 03/12/20 21:09 Zoloft PO 25 mg HS RALF Administration Spironolactone 25 mg 03/12/20 09:00
[2020-03-13] MEDS: METOPROLOL SUCCINATE EXT REL 50 MG TABCR PO (09:06)
[2020-03-13] MEDS: FUROSEMIDE INJ 40 MG/4 ML VIAL IV PUSH ×2 (09:07→20:17)
[2020-03-13] MEDS: lisinopriL 2.5 MG TABLET PO (09:07)
[2020-03-13] MEDS: SPIRONOLACTONE 25 MG TABLET PO (09:07)
[2020-03-13] MEDS: ENOXAPARIN 40 MG/0.4 ML SYRINGE SUB-Q (09:07)
--- NOTE | 2020-03-13 10:55 | PCDIET ---
MD consult received. Attempted to contact patient via phone due to COVID-19 precautions with no answer. Will reattempt later today. Diet information will be added to discharge instructions, as well.
--- NOTE | 2020-03-13 12:55 | PCDIET ---
Contacted patient via phone. Patient c/o emesis after eating. Began coughing and stated I'm going to throw up. Can you call back? Will reattempt to speak with patient at a later time.
--- NOTE | 2020-03-13 15:52 | PM.IMPN ---
Progress Note: A&P Assessment and Plan (1) Acute systolic heart failure: Code(s): I50.21 - Acute systolic (congestive) heart failure Status: Acute Assessment and Plan: Echo from 02/28 revealed EF <15%. [place] [address]. Cardiology, Dr. Bains, is on board. He appears hypervolemic with significant lower extremity edema. He had a Lexiscan stress test which revealed no ischemia. Cardiology is on board and recommendations are greatly appreciated Continue spironolactone, lisinopril, metoprolol, and IV lasix BID Continue low sodium diet Continue daily weights Continue to monitor strict I & O Continue 1.5L fluid restriction LifeVest has been re-ordered by Dr. Bains Continue to encourage abstinence from illicit drugs (2) Chronic anemia: Code(s): D64.9 - Anemia, unspecified Status: Chronic Assessment and Plan: Normocytic. On review of previous labs, his H&H are stable and at baseline. Vitamin B12 and folate were checked 03/01 and sufficient. Iron studies were consistent with anemia of chronic disease. Today, Hgb is 13.3 and Hct is 41.4. Continue to monitor H&H (3) Hepatitis C: Qualifiers: Hepatic coma status: without hepatic coma Viral hepatitis chronicity: unspecified Qualified Code(s): B19.20 - Unspecified viral hepatitis C without hepatic coma Code(s): B19.20 - Unspecified viral hepatitis C without hepatic coma Status: Chronic Assessment and Plan: Hepatitis Ab screen was reactive 03/01 with additional studies still pending. Per hx, this is chronic. The patient reports he is not established with GI. Hepatitis C PCR studies were drawn on 03/01 and per lab, were sent to outside facility. I spent extensive time on the phone with [facility] who is not able to locate these labs. Will repeat Hepatitis C PCR studies. (4) Shortness of breath: Code(s): R06.02 - Shortness of breath Status: Acute Assessment and Plan: Patient endorses SOB today as well as hemoptysis, which was not visualized. He is tachycardic. He has not been tachypneic today but has had prior episodes of tachypnea this admission. Will order chest CTA to rule out PE given suspicious symptoms (5) Elevated troponin: Code(s): R79.89 - Other specified abnormal findings of blood chemistry Status: Acute Assessment and Plan: Troponin was 0.035 which appears very close to his baseline which is elevated, likely due to his severe cardiomyopathy and CHF. He had a stress test 03/01 which revealed no ischemia and global hypokinesis with left EF measuring 18%. (6) Positive blood culture: Code(s): R78.81 - Bacteremia Status: Acute Assessment and Plan: One blood culture from 02/27/2020 was positive for coagulase negative staphylococcus. Repeat blood cultures are pending. (7) Transaminitis: Code(s): R74.0 - Nonspecific elevation of levels of transaminase and lactic acid dehydrogenase [LDH] Status: Acute Assessment and Plan: He has a hx of hepatitis C. LFTs are elevated. He has hepatic steatosis and hepatomegaly on CT. LFTs are improving. Continue to monitor (8) Hx of drug abuse: Code(s): F19.11 - Other psychoactive substance abuse, in remission Status: Chronic Assessment and Plan: Urine drug screen revealed cannabinoids. He reports he has not used any IV drugs but does admit to marijuana use. Continue to encourage cessation of substance use as his prognosis is very guarded if he does not remain abstinent (9) Anxiety: Code(s): F41.9 - Anxiety disorder, unspecified Status: Acute Assessment and Plan: He reports ongoing anxiety and panic. Cotninue lorazepam PRN Continue sertraline Subjective Date/time seen: 03/13/20 15:52 Interval history: Date of service: 03/13/2020 Mr. Yancey complains of shortness of breath. He endorses hemoptysis that began thi
[2020-03-13] MEDS: SERTRALINE HCL 25 MG TABLET PO (20:17)
[2020-03-14] VITALS (8 sets, daily range): PULSE 103–109
[2020-03-14] MEDS: LORAZEPAM 1 MG TABLET PO ×2 (01:46→09:35)
--- NOTE | 2020-03-14 02:09 | PC.NURSE ---
Pt called up to the desk demading his fucking nurse be sent in. I knew it had been long enough for his ativan and norco so assumed that was what he wanted and pulled them before going in. When I went in he was still cussing. I reminded him he was in a hospital and it was unacceptable to cuss at us that way. He continued yelling louder and someone at the desk called a daniel yepez.
--- NOTE | 2020-03-14 07:58 | PM.PNCARD ---
Progress Note: A&P Assessment and Plan (1) Hepatitis C: Qualifiers: Viral hepatitis chronicity: unspecified Hepatic coma status: without hepatic coma Qualified Code(s): B19.20 - Unspecified viral hepatitis C without hepatic coma Code(s): B19.20 - Unspecified viral hepatitis C without hepatic coma Status: Chronic (2) Methamphetamine abuse: Code(s): F15.10 - Other stimulant abuse, uncomplicated Status: Chronic Assessment and Plan: Couseled regarding quitting and effect it could have on his heart. (3) Acute exacerbation of CHF (congestive heart failure): Code(s): I50.9 - Heart failure, unspecified Status: Acute Assessment and Plan: Acute dilated cardiomyopathy with significant systolic dysfunction, EF 10-15%. No ischemia based on Lexiscan myoview stress test. On beta josi and delgado inhibitor. Due to persistent edema of legs, increase Lasix 40 mg IV q 8 hrs. He agreed to Life vest and has been reordered. (4) NSVT (nonsustained ventricular tachycardia): Code(s): I47.2 - Ventricular tachycardia Status: Acute Assessment and Plan: 13 beat run NSVT on 03/12/20. Due to cardiomyopathy. Increase Metoprolol succinate 50 mg daily as tolerated. Subjective Date/time seen: 03/14/20 07:58 Denies chest pain. Has edema of legs. Exam Const: General: comfortable and no acute distress Neck: Neck: no JVD Carotids: no bruits Resp: Auscultation: clear to auscultation bilaterally, no crackles, no rales, no rhonchi and no wheezes Cardio: Rate: regular rate Rhythm: regular rhythm Heart sounds: no murmurs GI: Inspection: non-distended Neuro: Speech: normal speech Extrem: Right lower extremity: edema Left lower extremity: edema Other: Moderate edema of both legs Objective Data Vital Signs Vital Signs: Vital Signs - 24 hr 03/13/20 07:59 03/13/20 08:00 03/13/20 09:06 Temperature 97 F L Pulse Rate 110 H 108 H 109 H Respiratory Rate 20 20 Blood Pressure 98/67 L Pulse Oximetry 97 97 03/13/20 10:00 03/13/20 12:00 03/13/20 14:00 Temperature 97.9 F Pulse Rate 112 H 108 H 111 H Respiratory Rate 18 Blood Pressure 110/79 Pulse Oximetry 97 03/13/20 15:58 03/13/20 16:00 03/13/20 18:00 Temperature 96.8 F L Pulse Rate 121 H 108 H 129 H Respiratory Rate 108 H Blood Pressure 111/80 Pulse Oximetry 97 03/13/20 20:00 03/13/20 21:30 03/13/20 21:40 Temperature 97.8 F Pulse Rate 133 H 121 H 104 H Respiratory Rate 18 18 18 Blood Pressure 113/72 Pulse Oximetry 94 03/13/20 22:00 03/13/20 23:37 03/14/20 00:00 Temperature 98.0 F Pulse Rate 105 H 111 H 108 H Respiratory Rate 20 Blood Pressure 101/68 Pulse Oximetry 98 03/14/20 02:00 03/14/20 04:00 03/14/20 06:00 Temperature Pulse Rate 109 H 109 H 103 H Respiratory Rate Blood Pressure Pulse Oximetry Intake/Output Intake/Output: Intake & Output 03/11/20 03/12/20 03/13/20 03/14/20 23:59 23:59 23:59 23:59 Intake Total 1260 1070 320 Output Total 725 Balance 535 1070 320 Meds/Results Medications: Active Medications Generic Name Dose Route Start Last Admin Trade Name Freq PRN Reason Stop Dose Admin Hydrocodone Bitart/Acetaminophen 1 tab 03/11/20 23:48 03/14/20 01:47 [place] 5-325 Mg PO 1 tab Q4H PRN Administration Moderate Pain (4-6) Benzonatate 100 mg 03/12/20 07:17 Tessalon Perles PO TID PRN cough Enoxaparin Sodium 40 mg 03/12/20 09:00 03/13/20 09:07 Lovenox SUB-Q 40 mg DAILY RALF Administration Furosemide 40 mg 03/12/20 09:00 03/13/20 20:17 Lasix Inj IV PUSH 40 mg Q12HR RALF Administration Lisinopril 2.5 mg 03/12/20 09:00 03/13/20 09:07 Prinivil PO 2.5 mg QAM RALF Administration Lorazepam 1 mg 03/12/20 07:17 03/14/20 01:46 Ativan Tab PO 1 mg Q6H PRN Administration Anxiety Metoprolol Succinate 50 mg 03/13/20 09:00 03/13/20
[2020-03-14 07:59] LABS: Basophils Percent Auto 0.2 % (0.2-1.2); Eosinophils Percent Auto 0.1 % (0-4.4); Hematocrit 43.9 % (42.0-52.0); Hemoglobin 13.9 g/dL (14.0-18.0); Immature Granulocyte Absolute 0.04 K/mm3 (0.00-0.031); Immature Granulocyte Percent A 0.3 % (0-0.5); Lymphocytes Absolute Auto 2.58 K/mm3 (0.9-3.2); Lymphocytes Percent Auto 21.1 % (18.3-44.2); Mean Corpuscular HGB Conc 31.7 g/dl (32-36); Mean Corpuscular Hemoglobin 30.9 pg (26-34); Mean Corpuscular Volume 97.6 fl (80-100); Mean Platelet Volume 10.1 fl (7.4-10.4); Monocytes Absolute Auto 0.8 K/mm3 (0.1-0.6); Monocytes Percent Auto 6.4 % (2.6-8.5); Neutrophils Absolute Auto 8.8 K/mm3 (1.3-6.7); Neutrophils Percent Auto 71.9 % (45.5-73.1); Nucleated Red Blood Cells Perc 0.2 % (0.0-0.2); Platelet Count Result 316 k/mm3 (150-375); Red Cell Distribution Width 18.6 % (11.5-14.5); White Blood Count 12.2 K/mm3 (4.5-10.0)
[2020-03-14 08:10] LABS: Alanine Aminotransferase 38 U/L (4-50); Albumin Level 2.9 g/dL (3.5-5.1); Alkaline Phosphatase 111 U/L (38-126); Aspartate Amino Transferase 37 U/L (17-59); Bilirubin,Total 1.6 mg/dL (0.2-1.3); Blood Urea Nitrogen 37 mg/dL (9-20); Calcium 8.2 mg/dL (8.4-10.2); Carbon Dioxide 25 mmol/L (22-30); Chloride 97 mmol/L (98-107); Estimated CRCL calculation 107 ml/min; Estimated Glomerular Filt Rate > 60; Glucose 108 mg/dL (75-110); Sodium 130 mmol/L (137-145)
[2020-03-14] MEDS: METOPROLOL SUCCINATE EXT REL 50 MG TABCR PO (09:35)
[2020-03-14] MEDS: lisinopriL 2.5 MG TABLET PO (09:35)
[2020-03-14] MEDS: SPIRONOLACTONE 25 MG TABLET PO (09:36)
[2020-03-14] MEDS: ENOXAPARIN 40 MG/0.4 ML SYRINGE SUB-Q (09:36)
--- NOTE | 2020-03-14 10:31 | PCDIET ---
Attempted to phone patient due to COVID-19 precautions with no answer.
--- NOTE | 2020-03-14 13:38 | PCDIET ---
Multiple attempts to contact patient via phone with no answer. Diet information added to discharge paperwork. Will continue to attempt to speak with patient.
--- NOTE | 2020-03-14 16:05 | PM.DS ---
DS: Admitting Diagnosis Admitting Diagnosis Admitting Diagnosis: Acute systolic (congestive) heart failure DS: Discharge Diagnosis Discharge Diagnosis (1) Acute systolic heart failure: Code(s): I50.21 - Acute systolic (congestive) heart failure Status: Acute Assessment and Plan: Echo from 02/28 revealed [place] <15[place] [address]. He was seen by insulation worker apprentice Dr. Bains and will continue spironolactone, lisinopril, metoprolol increased to 50 mg daily, and 80 mg Lasix BID. He will continue 1.5 L fluid restriction and low-sodium diet. He was outfitted for a LifeVest and instructed on use. He will follow-up with Dr. Bains in 1-2 weeks. (2) Chronic anemia: Code(s): D64.9 - Anemia, unspecified Status: Chronic Assessment and Plan: Iron studies were consistent with anemia of chronic disease. On day of discharge, Hgb was 13.9 and Hct 43.9. (3) Hepatitis C: Qualifiers: Hepatic coma status: without hepatic coma Viral hepatitis chronicity: unspecified Qualified Code(s): B19.20 - Unspecified viral hepatitis C without hepatic coma Code(s): B19.20 - Unspecified viral hepatitis C without hepatic coma Status: Chronic Assessment and Plan: Hepatitis Ab screen was reactive 03/01 with additional studies still pending. Hepatitis C PCR studies were drawn on 03/01 and sent to outside facility. I spent extensive time on the phone with [employer] who is not able to locate these labs, therefore they were redrawn on 03/13/2020. These results will need to be followed up outpatient by PCP. (4) Shortness of breath: Code(s): R06.02 - Shortness of breath Status: Acute Assessment and Plan: He complained of shortness of breath with associated tachycardia, tachypnea, and 1 episode of hemoptysis. Given these symptoms, chest CTA was performed to rule out pulmonary embolism which was negative. It did reveal pulmonary edema, anasarca, and cardiomegaly. I suspect his symptoms were related to his heart failure. (5) Elevated troponin: Code(s): R79.89 - Other specified abnormal findings of blood chemistry Status: Acute Assessment and Plan: Troponin was 0.035 on 03/11/20 elevated likely due to his severe cardiomyopathy and CHF. He had a stress test 03/01 which revealed no ischemia and global hypokinesis with left EF measuring 18%. (6) Positive blood culture: Code(s): R78.81 - Bacteremia Status: Acute Assessment and Plan: One blood culture from 02/27/2020 was positive for coagulase negative staphylococcus. Blood cultures repeated on 03/12/2020 and revealed no growth to date. (7) Transaminitis: Code(s): R74.0 - Nonspecific elevation of levels of transaminase and lactic acid dehydrogenase [LDH] Status: Acute Assessment and Plan: He has a hx of hepatitis C and evidence of hepatic steatosis and hepatomegaly. LFTs were elevated at presentation but improved and were within normal limits at time of discharge. (8) Hx of drug abuse: Code(s): F19.11 - Other psychoactive substance abuse, in remission Status: Chronic Assessment and Plan: He is a former IV drug user. Urine drug screen revealed cannabinoids. He was educated on importance of abstaining from illicit drugs given his guarded prognosis of heart failure. (9) Anxiety: Code(s): F41.9 - Anxiety disorder, unspecified Status: Acute Assessment and Plan: Patient complains of anxiety with panic attacks. He will continue his home regimen of sertraline and lorazepam as needed. DS: Summary Hospital Course Reason for hospitalization: shortness of breath Hospital Course: Date of admission: 03/11/2020 Date of discharge: 03/14/2020 Damien Yancey is a 29-year-old male with a past medical history significant for CHF, hepatitis-C, cardiomyopathy, and methamphetamine abuse who presented to the emergency department on
[2020-03-22 23:05] LABS: Hepatitis C RNA, Quant PCR <15 IU/mL
== END 2020-03-14 13:25 | disposition home or self-care (01) | DRG 194 ==
LOC: ANHED 21:59 → ANHIMU 03-12 00:19
PROVIDERS: Physician Assistant; Admitting Provider Family Medicine; Emergency Provider Emergency Medicine; Visit Provider Physician Assistant
DX: I50.23 Acute on chronic systolic (congestive) heart failure (principal); I47.2 Ventricular tachycardia; R78.81 Bacteremia; I42.0 Dilated cardiomyopathy; F20.0 Paranoid schizophrenia; B19.20 Unspecified viral hepatitis C without hepatic coma; D63.8 Anemia in other chronic diseases classified elsewhere; R79.89 Other specified abnormal findings of blood chemistry; R74.0 Nonspecific elevation of levels of transaminase and lactic acid dehydrogenase [LDH]; F12.10 Cannabis abuse, uncomplicated; F15.10 Other stimulant abuse, uncomplicated; F19.11 Other psychoactive substance abuse, in remission; F41.0 Panic disorder [episodic paroxysmal anxiety]; Z79.899 Other long term (current) drug therapy
CPT/HCPCS: 36415; 71046; 71275; 80048; 80053; 80307; 83735; 83880; 84484; 85025; 85027; 85610; 85730; 87040; 87522; 93005; 94640; 96374; 96375; 99285; A9270; J1650; J1940; Q9967

== ENCOUNTER 2020-03-16 02:16 | Inpatient (IN) | payer BC, SELFPAY ==
[2020-03-16] VITALS (32 sets, daily range): BP systolic 92–131; BP diastolic 44–96; PULSE 65–135; RESP 13–28; TEMP 36.6–36.8; O2SAT 91–100; BMI 28.2
--- NOTE | ~2020-03-16 | CT_ITS ---
EXAMINATION: CT abdomen pelvis wo con DATE: 03/16/2020 16:41 INDICATION: Abdominal pain TECHNIQUE: Computed tomography (CT) of the abdomen and pelvis was performed without intravenous contr ast. The dose-length product was 1063.85 mGy-cm. Automated exposure control and iterative reconstruct ion technique were employed. COMPARISON: CT dated 02/27/2020 FINDINGS: Persistent extensive consolidation of the visualized lung parenchyma which may represent pn eumonia and/or edema. Cardiomegaly. Small pericardial effusion. There is right pleural effusion. Ther e is moderate ascites. There is diffuse edema throughout the body wall. The liver, spleen, pancreas, adrenal glands and kidneys are unremarkable for a noncontrast CT. Nonobs tructive bowel gas pattern. Gallbladder is present. There is mild retroperitoneal and inguinal lympha denopathy, likely reactive. IMPRESSION: 1. Persistent extensive airspace consolidation of the visualized lung parenchyma, most likely pneumon ia and/or edema. 2: Cardiomegaly. 3: Small pericardial effusion. 4: Right pleural effusion. 5: Anasarca characterized by pleural/pericardial effusion, diffuse subcutaneous edema and ascites. Reviewed, dictated and finalized at location A. IMPRESSION: 1. Persistent extensive airspace consolidation of the visualized lung parenchym a, most likely pneumonia and/or edema. 2: Cardiomegaly. 3: Small pericardial effusion. 4: Right pleural effusion. 5: Anasarca characterized by pleural/pericardial effusion, diffuse subcutaneous edema and ascites.
--- NOTE | ~2020-03-16 | XR_ITS ---
EXAMINATION: XR chest 1V portable DATE: 03/19/2020 07:33 INDICATION: Chest pain. Nausea and vomiting. TECHNIQUE: A single frontal view of the chest was obtained. COMPARISON: Chest single view 03/16/2020, CT abdomen and pelvis 03/16/2020, chest CT 03/14/2020 FINDINGS: There is persistent elevation right hemidiaphragm. There are patchy airspace opacities in a ll lung zones bilaterally, worst in right lower lung zone. There are small pleural effusions. No pneu mothorax. Cardiomegaly is noted. IMPRESSION: 1. Stable diffuse lung disease, consistent with pulmonary edema versus pneumonia. 2. Small pleural effusions. 3. Cardiomegaly. Reviewed, dictated and finalized at location A. IMPRESSION: 1. Stable diffuse lung disease, consistent with pulmonary edema versus pneumoni a. 2. Small pleural effusions. 3. Cardiomegaly.
--- NOTE | ~2020-03-16 | US_ITS ---
EXAMINATION:US venous doppler LE BI INDICATION:Lower extremity edema. CHF. TECHNIQUE: Multiple grayscale, color flow and Doppler images of the lower extremity deep venous syste ms were obtained and reviewed. COMPARISON:No prior studies for comparison. FINDINGS: The common femoral, superficial femoral and popliteal veins demonstrate normal respiratory variation, augmentation and compressibility. Color flow is also seen within the posterior tibial, pe roneal, greater saphenous and profunda veins. IMPRESSION: 1: No lower extremity deep venous thrombosis. Reviewed, dictated and finalized at location A.
--- NOTE | ~2020-03-16 | XR_ITS ---
EXAMINATION: XR chest 1V portable DATE: 03/16/2020 03:15 INDICATION: Shortness of breath. TECHNIQUE: A single frontal view of the chest was obtained. COMPARISON: Chest 2 views 03/11/2020, chest CT 03/14/2020 FINDINGS: Again seen is elevation of right hemidiaphragm. There are airspace opacities in all lung zo rd, worst in right mid and lower lung zones. There is a small right pleural effusion. No pneumothora x. Cardiomegaly is noted. IMPRESSION: 1. Diffuse lung disease with worsening in the upper lung zones, consistent with pulmonary edema versu s pneumonia. 2. Persistent elevation of right hemidiaphragm. 3. Small right pleural effusion. 4. Cardiomegaly. Reviewed, dictated and finalized at location A. IMPRESSION: 1. Diffuse lung disease with worsening in the upper lung zones, consistent with pulmonary edema versus pneumonia. 2. Persistent elevation of right hemidiaphragm. 3. Small right pleural effusion. 4. Cardiomegaly.
--- NOTE | ~2020-03-16 | XR_ITS ---
XR chest 1V portable DATE: 03/24/2020 11:44 INDICATION: Shortness of breath. Congestive heart failure. TECHNIQUE: Portable AP chest on 03/24/2020 at 1133 hours COMPARISON: 03/19/2020 portable AP chest at 0730 hours FINDINGS: There is prominent cardiomegaly. There is pulmonary vascular congestion. There are bilatera l infiltrates which are more prominent centrally, which may be due to pulmonary edema. Pneumonia or a spiration are not excluded. There is prominent elevation of the right diaphragm. Small pleural effusions cannot be excluded. No p neumothorax. IMPRESSION: Cardiomegaly, pulmonary vascular congestion, bilateral infiltrates suggesting pulmonary e ann. Pneumonia is not excluded Reviewed, dictated and finalized at location A. IMPRESSION: Cardiomegaly, pulmonary vascular congestion, bilateral infiltrates suggesting pulmonary edema. Pneumonia is not excluded
--- NOTE | 2020-03-16 02:30 | PC.NURSE ---
VORB to give 2mg of Narcan IM.
--- NOTE | 2020-03-16 02:33 | ECG_ITS ---
Measurements Intervals [place] Rate: 102 P: 23 AK: 150 QRS: -53 QRSD: 101 T: 65 QT: 351 QTc: 459 Interpretive Statements SINUS TACHYCARDIA LEFT AXIS DEVIATION LEFT ATRIAL ENLARGEMENT LOW QRS VOLTAGE IN PRECORDIAL LEADS POOR R WAVE PROGRESSION, ANTERIOR LEADS INFERIOR INFARCT, AGE INDETERMINATE BORDERLINE T WAVE ABNORMALITY- HIGH LATERAL LEADS BASELINE WANDER- II, III, AVL, AVF, V5-V6 ABNORMAL ECG Electronically Signed On 03-16-2020 7:17:36 CDT by Jet Bains D.O.
--- NOTE | 2020-03-16 02:37 | PC.NURSE ---
Patient stating he wont get an IV, usually they have that lady with the ultrasound do it with the butterfly. This nurse and ED charge nurse in room attempting to get IV on patient. ED charge attempted to get 22g IV, was just about to obtain the IV and patient states get it out! take it out! ED charge removes IV upon patient request. Patient states You blew it! You blew the only one I have. Patient stating now you can't stick me again. This nurse and ED charge inform patient on reason IV is needed and patient refusing.
--- NOTE | 2020-03-16 02:46 | ED.SOB ---
HPI - SOB/Dyspnea General Chief Complaint: Shortness of Breath/Dyspnea Stated Complaint: chf exac Time Seen by Provider: 03/16/20 02:19 History of Present Illness HPI Narrative: Patient presents via EMS for shortness of breath. He says he has a LifeVest but does not know how to use it. Says he cannot catch his breath. He says his legs are swollen and so is his belly. He has already refused an IV, refused to get into a gown, and refused to get Narcan. He keeps falling asleep during the interview. When he sleeps his oxygenation drops into the high 80s. When he wakes up it pops right back up into the high 90s. I asked if he does narcotics and he would not answer. The staff here knows him and that he frequently does not cooperate with staff. I asked him if he usually gets admitted and he said yes. His ejection fraction is 10% by history. He has multiple medical records here, this is a new one, and cannot be merged until after the patient is discharged. MD elicited complaint: shortness of breath Pertinent past history: congestive heart failure Onset (ago): day(s) Timing: constant Severity: severe Exacerbating factors: lying flat Related Data Allergies Allergy/AdvReac Type Severity Reaction Status Date / Time No Known Allergies Allergy Verified 03/16/20 02:23 Review of Systems Review of Systems: Narrative: Unable to get a complete review of systems since he keeps falling asleep during the interview. Exam Narrative: Exam Narrative: GENERAL: Young man, sleeping on his right side, multiple tattoos, swelling in his abdomen and legs. Ulcer on the right foot. HEAD: Normocephalic, atraumatic. EYES: PERRLA and EOMI. ENT: Nares clear, no rhinorrhea or epistaxis. Mucous membranes moist. NECK: Supple. CHEST: Clear to auscultation. No respiratory distress. HEART: Regular rate and rhythm. No murmur heard. Normal peripheral pulses. ABDOMEN: Soft, nontender, nondistended, normal active bowel sounds. EXTREMITIES: Normal range of motion. No edema. SKIN: Warm, dry, no rash. NEURO: No focal deficits. Falling asleep PSYCH: Flat affect, mumbles a few words. Course Consultations Consultation #1: Call Dr. Hunter for admission, she accepts. Date: 03/16/20 Time: 05:13 Vital Signs Vital signs: Vital Signs Pulse Rate 125 H 03/16/20 02:13 Respiratory Rate 20 03/16/20 02:13 Blood Pressure 101/76 03/16/20 02:13 Pulse Oximetry 98 03/16/20 02:13 Temperature 98.2 F 03/16/20 02:26 Pulse Rate 93 03/16/20 04:28 Respiratory Rate 24 H 03/16/20 04:28 Blood Pressure 131/60 03/16/20 04:28 Pulse Oximetry 96 03/16/20 04:28 MDM - SOB/Dyspnea Medical Records Attestation: I reviewed the patient's medical records. Lab Data Attestation: I reviewed the patient's lab results. Result diagrams: 03/16/20 03:00 03/16/20 03:00 Labs: Lab Results 03/16/20 03/16/20 03/16/20 Range/Units 03:00 03:00 03:00 WBC 12.9 H (4.5-10.0) K/mm3 RBC 4.22 L (4.6-6.20) M/mm3 Hgb 13.2 L (14.0-18.0) g/dL Hct 40.6 L (42.0-52.0) % MCV 96.2 (80-100) fl MCH 31.3 (26-34) pg MCHC 32.5 (32-36) g/dl RDW 18.8 H (11.5-14.5) % Plt Count 344 (150-375) k/mm3 MPV 10.7 H (7.4-10.4) fl Immature Gran % (Auto) 0.5 (0-0.5) % Neut % (Auto) 75.7 H (45.5-73.1) % Lymph % (Auto) 17.5 L (18.3-44.2) % Brown % (Auto) 6.2 (2.6-8.5) % Eos % (Auto) 0.0 (0-4.4) % Baso % (Auto) 0.1 L (0.2-1.2) % Lymph # (Auto) 2.26 (0.9-3.2) K/mm3 Brown # (Auto) 0.8 H (0.1-0.6) K/mm3 Eos # (Auto) 0.0 (0-0.3) K/mm3 Baso # (Auto) 0.0 (0.0-0.1) K/mm3 Abs Immat Gran (auto) 0.06 H (0.00-0.031) K/mm3 Absolute Neuts (auto) 9.8 H (1.3-6.7) K/mm3 Absolute Nucleated RBC 0.0 (0.0-0.012) K/mm3 Nucleated RBC % 0.0 (0.0-0.2) % Sodium 126 L (137-145) mmol/L Potassium 4.4 (3.4-5.0) mmol/L Chloride 91 L (98-107) mmol/L Carbon Dioxide 26 (22
[2020-03-16] MEDS: NALOXONE HCL INJ 2 MG/2 ML AMP (02:57)
[2020-03-16] MEDS: FUROSEMIDE INJ 100 MG/10 ML VIAL 80 MG IV PUSH ×2 (02:58→17:12)
[2020-03-16 03:03] LABS: Alveolar/Arterial O2 Gradient 48.6 mmHg; Base Excess ABG 1.5 mEq/l (+/-2.0); Fractional Inspired Oxygen 21 %; HCO3 ABG 24.3 mEq/l (22.0-26.0); Oxygen Content ABG 17.8 %vol (16.0-22.0); Oxygen Saturation ABG 93.6 % (95.0-100.0); Oxyhemoglobin 89.7 % THb (90.0-100.0); PCO2 ABG 32.8 mmHg (35.0-45.0); PO2 ABG 61.9 mmHg (80.0-100.0); PO2 FiO2 Ratio Arterial Blood 2.95 %; Total Hemoglobin 14.1 g/dL (12.0-18.0); pH ABG 7.487 (7.350-7.450)
[2020-03-16 03:04] LABS: Device ROOM AIR; Modified Allen's Test Pass; Site Drawn RIGHT RADIAL
[2020-03-16 03:06] LABS: Basophils Percent Auto 0.1 % (0.2-1.2); Hematocrit 40.6 % (42.0-52.0); Hemoglobin 13.2 g/dL (14.0-18.0); Immature Granulocyte Absolute 0.06 K/mm3 (0.00-0.031); Immature Granulocyte Percent A 0.5 % (0-0.5); Lymphocytes Absolute Auto 2.26 K/mm3 (0.9-3.2); Lymphocytes Percent Auto 17.5 % (18.3-44.2); Mean Corpuscular HGB Conc 32.5 g/dl (32-36); Mean Corpuscular Hemoglobin 31.3 pg (26-34); Mean Corpuscular Volume 96.2 fl (80-100); Mean Platelet Volume 10.7 fl (7.4-10.4); Monocytes Absolute Auto 0.8 K/mm3 (0.1-0.6); Monocytes Percent Auto 6.2 % (2.6-8.5); Neutrophils Absolute Auto 9.8 K/mm3 (1.3-6.7); Neutrophils Percent Auto 75.7 % (45.5-73.1); Platelet Count Result 344 k/mm3 (150-375); Red Blood Count 4.22 M/mm3 (4.6-6.20); Red Cell Distribution Width 18.8 % (11.5-14.5); White Blood Count 12.9 K/mm3 (4.5-10.0)
[2020-03-16 03:18] LABS: Ethanol < 10 mg/dL (<10)
[2020-03-16 03:21] LABS: Alanine Aminotransferase 37 U/L (4-50); Albumin Level 3.1 g/dL (3.5-5.1); Alkaline Phosphatase 129 U/L (38-126); Aspartate Amino Transferase 50 U/L (17-59); Bilirubin,Total 1.9 mg/dL (0.2-1.3); Blood Urea Nitrogen 52 mg/dL (9-20); Calcium 8.3 mg/dL (8.4-10.2); Carbon Dioxide 26 mmol/L (22-30); Chloride 91 mmol/L (98-107); Estimated Glomerular Filt Rate > 60; Glucose 105 mg/dL (75-110); Potassium 4.4 mmol/L (3.4-5.0); Sodium 126 mmol/L (137-145)
--- NOTE | 2020-03-16 03:24 | PC.NURSE ---
Patient ambulated to the bathroom with a steady gait, patient states he will attempt to provide a urine specimen.
[2020-03-16 03:32] LABS: NT Pro B Type Natriuretic Pept 15000 PG/ML (5-100)
--- NOTE | 2020-03-16 03:39 | PC.NURSE ---
Patient ambulated back to the room with a steady gait, was unable to provide a urine specimen at this time.
[2020-03-16 05:08] LABS: Amphetamine Screen Urine Negative (Negative); Barbiturate Screen Urine Negative (Negative); Benzodiazepines Screen Urine Negative (Negative); Cannabinoid Screen Urine Negative (Negative); Cocaine Screen Urine Negative (Negative); Methadone Screen Urine Negative (Negative); Opiate Screen Urine Negative (Negative); Phencyclidine Screen Urine Negative (Negative)
[2020-03-16 05:12] LABS: Add Urine Microscopic? NO; Appearance Urine Clear (Clear); Bacteria Urine Trace /hpf; Bilirubin Urine Negative (Negative); Blood Urine Negative (Negative); Color Urine Straw (Yellow); Glucose Urine UA Negative (Negative); Ketones Urine Negative (Negative); Leukocyte Esterase Ur Negative LEU/UL (Negative); Mucus Urine Rare /lpf; Nitrate Urine Negative (Negative); Protein Urine Negative (Negative); RBC Urine 0-2 /hpf (0-2); Specific Grav Ur 1.006 (1.001-1.035); Urobilinogen Urine Negative mg/dL (<2.0); WBC Urine 0-3 /hpf
--- NOTE | 2020-03-16 06:13 | ADMGEN ---
This patient, Jesus Yancey, was admitted to Medical Room 243-. Patient/family oriented to hospital policies and general routines including ID bracelet, bed and alarms, visiting hours, pain management, procedures, bathroom and other care routines, personal items, smoking policy, room service/diet, and visiting hours. Valuables list has been completed. Information on how to activate the Rapid Response Team has been discussed. Patient/Family are encouraged to report perceived risks to care and to ask questions if they do not understand what they are told or what they should do.
--- NOTE | 2020-03-16 09:16 | PM.IMHP ---
H&P: HPI History of Present Illness Chief complaint: chf, fluid overload Narrative: Jesus Yancey is a 29 year old male with known chronic systolic heart failure, history of methamphetamine abuse and nonischemic cardiomyopathy here for shortness of breath. Patient here in the Emergency room February 04 for shortness of breath found to multiorgan failure with liver failure, acute CHF, hyperkalemia, PNA and septic shock and was transferred to [facility]. Patient was admitted here recently on February 27 for complaints of CP and SOB. COVID negative. Lexiscan stress test negative for reversible ischemia but with a small area fixed defect and EF was 18%. Echocardiogram showed EF of 10-15% with normal diastolic function. Right ventricular systolic function was reduced. [id number] mitral valve regurgitation. Mild pulmonary hypertension. Patient diuresed well. Patient initially refused but then agreed to the LifeVest. He is discharged on 03/02/2020. He was discharged on Lasix 80 mg daily, spironolactone 25 mg daily, lisinopril 5 mg daily and metoprolol succinate 25 mg daily. Patient returns on 03/11 for complaints of shortness of breath found to have CHF. Patient was again outfitted for LifeVest and instructed on use. He was continued on his cardiac medications with the exception that his metoprolol was increased to 50 mg a day and Lasix was increased to 80 mg twice a day. Patient was discharged on 03/14. Patient returns emergency room complaints of shortness of breath. Overall his history is difficult to obtain. He appears to follow sleep at times. He complains of stomach pain. Has also complains of shortness of breath but denies chest pain. Denies palpitations. Continues to have leg edema. When pushed for details he states ?I just do not feel good?. He denies nausea but states he has been vomiting about 45 minutes after eating. This symptom has been going on since January. Denies any hematemesis but does mention that he had hemoptysis but provides little detail. Says his cough mostly is dry. He denies epistaxis. No fever or chills. He cannot remember his last bowel movement. He denies headache. He has chronic neck pain. He also has panic attacks but has not been out of the hospital long enough to fill his lorazepam. He denies any recent drug use except for marijuana. He has not been using his life vest. Discussed with his grandmother (with patient permission). She confirms patient has not been wearing his LifeVest. Pateint seen in the ER. CXR diffuse pulmonary edema. BNP 15K. Patient does state he has increasing SOB when laying flat. Patient given Lasix IV and admitted for further care. Review of Systems Review of Systems: All systems reviewed & are unremarkable except as noted in HPI and below PMFSH Past Medical History Medical History CHF (congestive heart failure) Hepatitis C Nonischemic cardiomyopathy Surgical History Surgical History No pertinent past surgical history Family History Family History (Updated 03/16/20 @ 11:30 by Jewel Dhillon MD) Father No problems noted. Grandparent Renal disease Hypertension Mother Unknown family medical history Social History Social History (Updated 03/16/20 @ 10:50 by Jewel Dhillon MD) Social History: Denies current tobacco use. Denies alcohol use. Denies recent drug use except for marijuana. Lives with grandmother. Smoking packs per day: 1 Smoking cigarettes per day: 20.0 Years smoked: 10 Smoking pack-years: 10.00 Smoking status: Former smoker Smoking end date: 03/11/19 Additional smoking assessment comments: doesn't know how long he smoked before quitting Alcohol intake: never Substance use: unknown Substance use type: marijuana and methamphetamine Gender identity (if verbalized by the patient): Male Sp
--- NOTE | 2020-03-16 11:50 | PC.NURSE ---
Pt refusing to keep manager monitoring on, educated that patient that it is important that we monitor him and patient still refused. He states, Im wearing a lifevest,why do I have to wear both? Continued to educate the patient on our telemetry and he states too bad.
--- NOTE | 2020-03-16 12:46 | PM.CNCAR ---
Assessment and Plan Assessment and plan (1) Acute exacerbation of CHF (congestive heart failure): Code(s): I50.9 - Heart failure, unspecified Status: Acute Assessment and Plan: Acute on chronic systolic heart failure. Rehospitalizations, unsure if taking medications as prescribed. Poor prognosis. Continue diuresis with Lasix 80 mg IV BID and on Spironolactone 25 mg daily. On Toprol 50 mg daily. If BP tolerates while diuresing, needs to be on delgado inhibitor, Lisinopril 2.5 mg daily. Has Life Vest on to treat sudden cardiac arrest. Counseled patient previously to be compliant with medications and to avoid illicit drugs such as methamphetamines. (2) Nonischemic cardiomyopathy: Code(s): I42.8 - Other cardiomyopathies Status: Acute History of Present Illness History of Present Illness Consult date/time: 03/16/20 12:46 Reason for consult: CHF. 29 year old man I saw 4 weeks ago and again 1 weeks ago [facility] for heart failure who has a history of non-ischemic cardiomyopathy probably due to methamphetamines, chronic systolic heart failure and history of methamphetamine abuse, panic attacks, paranoid schizophrenia, hepatitis C, non-compliance who last night presented to the hospital with a complaint of acute severe shortness of breath. He also has worsening lower extremity swelling. He is wearing his Life Vest which he received at last hospitalization. He is very somnolent, answering using 1 or 2 words then falls asleep. He was recently admitted to the hospital four weeks ago and Echocardiogram demonstrated an EF of 10-15%. His edema of legs are moderate. He is coughing. States he smokes marijuana but did not use Methamphetamines. NTpro BNP 18,200 now at 15,00. CXR shows diffuse lung disease with worsening upper lung zones c/w pulm edema or pneumonia. EKG shows sinus tachycardia. Lexiscan nuclear stress test on 03/01/20 Negative for ischemia. Echo 02/29/20 EF 10-15%, severe LVE, mod RV hypokinesis, mild RVE, mild-mod MR, RVSP 49 mmHg. Reason For Visit: chf, fluid overload Review of Systems Review of Systems: All systems reviewed & are unremarkable except as noted in HPI and below ROS unobtainable: Yes unobtainable due to medical condition Constitutional: Constitutional: Reports as per HPI Cardiovascular: Cardiovascular: Reports as per HPI, Denies chest pain and Reports leg edema Respiratory: Respiratory: Reports as per HPI and Reports dyspnea Gastrointestinal: Gastrointestinal: Reports as per HPI and Denies abdominal pain Genitourinary: Genitourinary: Reports as per HPI Musculoskeletal: Musculoskeletal: Reports as per HPI Neurologic: Reports as per HPI [facility] Past Medical History Medical History CHF (congestive heart failure) Hepatitis C Nonischemic cardiomyopathy Surgical History Surgical History No pertinent past surgical history Family History Family History (Updated 03/16/20 @ 11:30 by Jewel Dhillon MD) Father No problems noted. Grandparent Renal disease Hypertension Mother Unknown family medical history Social History Social History (Updated 03/16/20 @ 10:50 by Jewel Dhillon MD) Social History: Denies current tobacco use. Denies alcohol use. Denies recent drug use except for marijuana. Lives with grandmother. Smoking packs per day: 1 Smoking cigarettes per day: 20.0 Years smoked: 10 Smoking pack-years: 10.00 Smoking status: Former smoker Smoking end date: 03/11/19 Additional smoking assessment comments: doesn't know how long he smoked before quitting Alcohol intake: never Substance use: unknown Substance use type: marijuana and methamphetamine Gender identity (if verbalized by the patient): Male Spiritual care concerns: No Meds Home Medications and Allergies Home Medications Medication Instructions
--- NOTE | 2020-03-16 14:20 | PC.NURSE ---
Pt reports nausea and says Ill feel better if I just puke. Encouraged PRN phenergan PO and pt refuses. Will continue to monitor.
--- NOTE | 2020-03-16 14:48 | PC.NURSE ---
Pt requesting to have his abd drained. Explained that he had a ct scan of abd ordered and it would be down this afternoon to see if he has any fluid to drain. Pt c/o of abd pain and nausea. Pt also demanded ct to be done now. Call placed to ct and they were not able to do it now but would this afternoon. Dr Dhillon notified and new orders received.
[2020-03-16] MEDS: LORAZEPAM INJ 2 MG/ML VIAL 0.5 MG IV PUSH (15:35)
[2020-03-16] MEDS: PROMETHAZINE HCL 12.5 MG SUPP.RECT RECTAL (15:41)
--- NOTE | 2020-03-16 16:20 | PC.NURSE ---
Pt continues to refuse telemetry. Continued education of benefits and importance were explained to the patient.
[2020-03-16] MEDS: LORAZEPAM 1 MG TABLET PO (21:27)
--- NOTE | 2020-03-16 22:06 | PC.NURSE ---
PT IS DEMANDING TO GO INTO SHOWER. HE IS VERY UNSTEADY AND VERY SOB. HE HAS URINATED ON BATHROOM FLOOR. HE ALSO HAS URINATED ON FLOOR NEXT TO HIS BED. HE HAS HIS LIFE VEST ON CURRENTLY. REFUSES TO WEAR OUR TELEMETRY. HE TOOK A SHOWER EARLIER TODAY. EXPLAINED TO HIM HE CAN WASH UP BUT HE CAN'T TAKE A SHOWER AT THIS TIME. I AM WORRIED ABOUT HIS SAFETY. CHEO MA. PHYSICS FACULTY MEMBER AT BEDSIDE TALKING WITH HIM. HE IS YELLING AND CURSING. HE DOES NOT LIKE THE BED ALARM ON. I EXPLAINED TO HIM THAT HE IS VERY UNSTEADY AND ITS FOR HIS SAFETY. I GAVE HIM A PRN DOSE OF ATIVAN PO AND AFTER HE TOOK HIS PILL HE THREW HIS MEDICATION CUP ON THE FLOOR. HE ALSO THREW ICE CREAM ON THE FLOOR. HE SAID, IT TASTES TERRIBLE. HE IS VERY AGITATED AND AGGRESSIVE. BED ALARM IS ACTIVATED. MONITORING CLOSELY.
[2020-03-17] VITALS (8 sets, daily range): BP systolic 101–121; BP diastolic 68–81; PULSE 75–118; RESP 20–40; TEMP 36.7–36.9; O2SAT 94–100
[2020-03-17] MEDS: LORAZEPAM 1 MG TABLET PO ×3 (06:13→18:27)
--- NOTE | 2020-03-17 08:30 | PM.PNCARD ---
Progress Note: A&P Assessment and Plan (1) Hepatitis C: Status: Chronic (2) Methamphetamine abuse: Status: Chronic Assessment and Plan: Couseled regarding quitting and effect it could have on his heart. 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 No ischemia based on Lexiscan myoview stress test. On beta josi. Decrease Toprol 25 mg daily and resume Lisinopril 2.5 mg daily. Due to persistent anasarca, pleural effusions, edema of legs despite Lasix 80 mg IV BID and Spironolactone, consider ultrafiltration with PICC line to pull fluids off of him. He is wearing Life vest to prevent sudden cardiac arrest. (4) NSVT (nonsustained ventricular tachycardia): Status: Acute Subjective Date/time seen: 03/17/20 08:30 Awake and oriented and not somnolent this morning. Reports sob, coughing. States vague abdominal discomfort. Denies chest pain. Exam Const: General: uncomfortable Neck: Neck: no JVD Carotids: no bruits Resp: Other: Coarse breath sounds bilaterally Cardio: Rate: regular rate and tachycardic Rhythm: regular rhythm Heart sounds: no murmurs GI: Other: Non-tender Neuro: Speech: normal speech Extrem: Right lower extremity: edema Left lower extremity: edema Other: Severe edema of feet and mod edema of legs Objective Data Vital Signs Vital Signs: Vital Signs - 24 hr 03/16/20 11:30 03/16/20 14:00 03/16/20 22:00 Temperature 97.8 F 98.2 F Pulse Rate 80 106 H 117 H Respiratory Rate 28 H 24 H Blood Pressure 107/66 116/84 115/84 Pulse Oximetry 100 96 100 03/17/20 06:00 Temperature 98.0 F Pulse Rate 116 H Respiratory Rate 24 H Blood Pressure 101/72 Pulse Oximetry 95 Intake/Output Intake/Output: Intake & Output 03/14/20 03/15/20 03/16/20 03/17/20 23:59 23:59 23:59 23:59 Intake Total 880 400 Output Total 450 Balance 430 400 Meds/Results Medications: Active Medications Generic Name Dose Route Start Last Admin Trade Name Freq PRN Reason Stop Dose Admin Acetaminophen 650 mg 03/16/20 05:10 Tylenol Tablet PO Q4H PRN Mild Pain (1-3) or Fever Enoxaparin Sodium 40 mg 03/17/20 09:00 Lovenox SUB-Q DAILY [facility] Furosemide 80 mg 03/16/20 17:00 03/16/20 17:12 Lasix Inj IV PUSH 80 mg BID [facility] Administration Lorazepam 1 mg 03/16/20 11:08 03/17/20 06:13 Ativan Tab PO 1 mg Q6H PRN Administration Anxiety Metoprolol Succinate 25 mg 03/17/20 09:00 Toprol Xl PO DAILY [facility] Promethazine HCl 12.5 mg 03/16/20 11:32 03/17/20 06:14 Phenergan Tab PO 12.5 mg Q4H PRN Administration Nausea And Vomiting Sertraline HCl 25 mg 03/17/20 09:00 Zoloft PO DAILY [facility] Spironolactone 25 mg 03/17/20 09:00 Aldactone PO DAILY [facility] Radiology Results: ITS Impressions Chest X-Ray 03/16/20 07:12 IMPRESSION: 1. Diffuse lung disease with worsening in the upper lung zones, consistent with pulmonary edema versus pneumonia. 2. Persistent elevation of right hemidiaphragm. 3. Small right pleural effusion. 4. Cardiomegaly. Venous Doppler Study 03/16/20 16:28 IMPRESSION: 1: No lower extremity deep venous thrombosis. Abdomen/Pelvis CT 03/16/20 16:45 IMPRESSION: 1. Persistent extensive airspace consolidation of the visualized lung parenchyma, most likely pneumonia and/or edema. 2: Cardiomegaly. 3: Small pericardial effusion. 4: Right pleural effusion. 5: Anasarca characterized by pleural/pericardial effusion, diffuse subcutaneous edema and ascites.
--- NOTE | 2020-03-17 09:35 | PM.IMPN ---
Progress Note: A&P Assessment and Plan (1) Acute systolic heart failure: Code(s): I50.21 - Acute systolic (congestive) heart failure Status: Acute Assessment and Plan: Chest x-ray looked worse on admission. BNP 01161. Will continue aggressive diuretic therapy with Lasix 80mg IV BID. Cardiology following and appreciate their input. Continue LifeVest. Metolazone x 1. Encouraged compliance. (2) Hyponatremia: Code(s): E87.1 - Hypo-osmolality and hyponatremia Status: Acute Assessment and Plan: Most likely related to fluid overload. Will monitor closely during diuresis. This probably will improve. Patient refusing lab draws. (3) Hx of drug abuse: Code(s): F19.11 - Other psychoactive substance abuse, in remission Status: Chronic Assessment and Plan: Patient has history of drug use and is detailed in prior notes. Patient was educated about the benefits abstaining from drug use. (4) Abdominal pain: Code(s): R10.9 - Unspecified abdominal pain Status: Acute Assessment and Plan: Etiology unclear but suspect related to CHF. He may be having bowel ischemia related to low effective circulating volume causing his vomiting. Recent CT scan showing ascites and body wall edema. Repeat CT A/P showing moderate ascites, persistent extensive airspace consolidation of the visualized lung parenchyma, most likely pneumonia and/or edema, Small pericardial effusion, Right pleural effusion and Anasarca characterized by pleural/pericardial effusion, diffuse subcutaneous edema and ascites. Doubt PNA and felt more likely related to edema. Continue IV diuretics. (5) Hemoptysis: Code(s): R04.2 - Hemoptysis Status: Acute Assessment and Plan: Etiology unclear. He did have a CTA of the chest on March 14 that was negative for PE. Could be related to the CHF as pink sputum. Lower extremity Dopplers negative for DVT. Continue to monitor for recurrence (6) Hepatitis C: Qualifiers: Hepatic coma status: without hepatic coma Viral hepatitis chronicity: unspecified Qualified Code(s): B19.20 - Unspecified viral hepatitis C without hepatic coma Code(s): B19.20 - Unspecified viral hepatitis C without hepatic coma Status: Chronic Assessment and Plan: Hepatitis C antibody was positive. His hepatitis C RNA is pending. (7) DVT prophylaxis: Code(s): Z29.9 - Encounter for prophylactic measures, unspecified Status: Acute Assessment and Plan: Lovenox Subjective Date/time seen: 03/17/20 09:35 Interval history: 29yo male with known sCHF here for CHF exacerbation. Patient demandng to have his lasix changed to 'something that works'. He is frustrated. He refuses to save UOP. He denies CP. Still with abd pain. He ate well today but states he will most likely vomit later. RN states patient refusing tele; when asked, he did not provide reason of not wanting tele. Exam Narrative: Exam Narrative: 101/72 116 Gen - NARD Chest - bibasilar inspiratory crackles, nml RR CV - RRR S1/S2 Abd - soft, no apparent tenderness, +BS Ext - 1+ pitting pedal edema Psych - awake and alert, unhappy and frustrated. Skin - Warm and dry Objective Data Vital Signs Vital Signs: Vital Signs - 24 hr 03/16/20 11:30 03/16/20 14:00 03/16/20 22:00 Temperature 97.8 F 98.2 F Pulse Rate 80 106 H 117 H Respiratory Rate 28 H 24 H Blood Pressure 107/66 116/84 115/84 Pulse Oximetry 100 96 100 03/17/20 06:00 Temperature 98.0 F Pulse Rate 116 H Respiratory Rate 24 H Blood Pressure 101/72 Pulse Oximetry 95 Intake/Output Intake/Output: Intake & Output 03/14/20 03/15/20 03/16/20 03/17/20 23:59 23:59 23:59 23:59 Intake Total 880 400 Output Total 450 Balance 430 400 Meds/Results Medications: Active Medications Generic Name Dose Route Start Last Admin Trade Name Freq PRN Reason Stop
[2020-03-17] MEDS: lisinopriL 2.5 MG TABLET PO (09:59)
[2020-03-17] MEDS: FUROSEMIDE INJ 100 MG/10 ML VIAL 80 MG IV PUSH (09:59)
[2020-03-17] MEDS: ENOXAPARIN 40 MG/0.4 ML SYRINGE SUB-Q (10:00)
[2020-03-17] MEDS: SERTRALINE HCL 25 MG TABLET PO (10:01)
[2020-03-17] MEDS: METOPROLOL SUCCINATE EXT REL 25 MG TABCR PO (10:01)
[2020-03-17] MEDS: SPIRONOLACTONE 25 MG TABLET PO (10:01)
[2020-03-17] MEDS: metOLazone 1.25 MG TABLET PO (10:31)
--- NOTE | 2020-03-17 11:15 | PC.NURSE ---
patient extremely aggressive toward myself and [employer]AND[employer] about keeping bed alarm on. eventually compromised to move to [place] with chair alarm underneath him. reinforced that he is at risk for falling due to the medications he is taking and his generalized weakness/SOB. patient screaming and cursing that he is not at risk for falls. left with patient still on chair alarm. will continue to educate and monitor patient.
[2020-03-17] MEDS: ALBUTEROL SULFATE (*SP) AEROSOL 1 PUFF 2 PUFF INHALATION ×2 (14:10→20:32)
--- NOTE | 2020-03-17 16:15 | PC.NURSE ---
found patient in room without life vest on for second time. reminded patient of need to wear life vest and tele. agreed to put life vest back on, refuses electronic device monitor. discussed with patient the need for labs, still refusing to let hand crocheter to draw labs.
[2020-03-17] MEDS: BUMETANIDE INJ 1 MG/4 ML VIAL IV PUSH (18:29)
--- NOTE | 2020-03-17 21:03 | PM.EVENT ---
Event Note Event Note Event Note: I received a call from the patient's nurse at approximately 20:40 with reports of increasing shortness of breath, tachycardia, and anxiety. At the time of my evaluation, he is sitting up in bed, is ashen, with respirations in the mid 30's. He is noticeably anxious. Crackles heard at both bases, almost [facility] up. He is tachycardic. Started on Bipap to help with work of breathing and if he tolerates it well then he can use it prn. I think a lot of this is driven by anxiety.
[2020-03-18] VITALS (14 sets, daily range): BP systolic 96–112; BP diastolic 69–73; PULSE 77–138; RESP 16–32; TEMP 36.1; O2SAT 94–100
[2020-03-18] MEDS: LORAZEPAM 1 MG TABLET PO ×4 (00:35→20:17)
[2020-03-18 03:54] LABS: Basophils Percent Auto 0.2 % (0.2-1.2); Eosinophils Percent Auto 0.2 % (0-4.4); Hematocrit 40.6 % (42.0-52.0); Hemoglobin 13.1 g/dL (14.0-18.0); Immature Granulocyte Absolute 0.03 K/mm3 (0.00-0.031); Immature Granulocyte Percent A 0.3 % (0-0.5); Lymphocytes Absolute Auto 2.89 K/mm3 (0.9-3.2); Lymphocytes Percent Auto 27.5 % (18.3-44.2); Mean Corpuscular HGB Conc 32.3 g/dl (32-36); Mean Corpuscular Hemoglobin 31.3 pg (26-34); Mean Corpuscular Volume 97.1 fl (80-100); Mean Platelet Volume 10.5 fl (7.4-10.4); Monocytes Absolute Auto 0.7 K/mm3 (0.1-0.6); Monocytes Percent Auto 6.6 % (2.6-8.5); Neutrophils Absolute Auto 6.9 K/mm3 (1.3-6.7); Neutrophils Percent Auto 65.2 % (45.5-73.1); Platelet Count Result 310 k/mm3 (150-375); Red Blood Count 4.18 M/mm3 (4.6-6.20); Red Cell Distribution Width 18.6 % (11.5-14.5); White Blood Count 10.5 K/mm3 (4.5-10.0)
[2020-03-18 04:06] LABS: Alanine Aminotransferase 33 U/L (4-50); Alkaline Phosphatase 126 U/L (38-126); Aspartate Amino Transferase 41 U/L (17-59); Bilirubin,Total 1.3 mg/dL (0.2-1.3); Blood Urea Nitrogen 42 mg/dL (9-20); Carbon Dioxide 28 mmol/L (22-30); Chloride 94 mmol/L (98-107); Estimated CRCL calculation 97 ml/min; Estimated Glomerular Filt Rate > 60; Glucose 104 mg/dL (75-110); Magnesium 2.2 mg/dL (1.6-2.3); Phosphorus 3.8 mg/dL (2.5-4.5); Potassium 4.1 mmol/L (3.4-5.0); Sodium 130 mmol/L (137-145)
[2020-03-18] MEDS: BUMETANIDE INJ 1 MG/4 ML VIAL IV PUSH ×3 (05:37→21:28)
--- NOTE | 2020-03-18 08:53 | PM.PNCARD ---
Progress Note: A&P Assessment and Plan (1) Hepatitis C: (2) Methamphetamine abuse: Assessment and Plan: Couseled regarding quitting and effect it could have on his heart. (3) Acute exacerbation of CHF (congestive heart failure): Assessment and Plan: Acute dilated cardiomyopathy with significant systolic dysfunction, EF 10-15%. No ischemia based on Lexiscan myoview stress test. On Toprol XL 25 mg daily and Lisinopril 2.5 mg daily, and Spironolactone 25 mg daily. He is on Bumex 1 mg IV q 8 hours and received a dose of Metolazone 1.25 mg x1 yesterday. States he has more urine output from it. May need to continue Metolazone for synergistic diuretic effect if his urine output decreases. Consider ultrafiltration with PICC line to pull fluids off of him if he fails diuretic therapy. He is wearing Life vest to prevent sudden cardiac arrest. (4) NSVT (nonsustained ventricular tachycardia): Assessment and Plan: Episode at last hospitalization. Subjective Date/time seen: 03/18/20 08:53 He is somnolent but answering with one or 2 word answers. States sob but no chest pain. Exam Const: Other: Somnolent Neck: Neck: no JVD Carotids: no bruits Resp: Effort & Inspection: tachypneic Other: Coarse breath sounds bilaterally Cardio: Rate: regular rate and tachycardic Rhythm: regular rhythm Heart sounds: no murmurs GI: Other: Non-tender Neuro: Speech: normal speech Extrem: Right lower extremity: edema Left lower extremity: edema Other: Severe edema of feet and mod edema of legs Objective Data Vital Signs Vital Signs: Vital Signs - 24 hr 03/17/20 10:01 03/17/20 14:00 03/17/20 14:12 Temperature 98.4 F Pulse Rate 108 H 75 Respiratory Rate 20 Blood Pressure 101/68 Pulse Oximetry 94 95 03/17/20 20:00 03/17/20 20:32 03/17/20 21:00 Temperature Pulse Rate 118 H 117 H 111 H Respiratory Rate 33 H 36 H Blood Pressure Pulse Oximetry 100 03/17/20 22:00 03/18/20 00:00 03/18/20 02:30 Temperature 98.0 F Pulse Rate 118 H 104 H 104 H Respiratory Rate 40 H 28 H Blood Pressure 121/81 Pulse Oximetry 100 100 03/18/20 04:00 Temperature Pulse Rate 103 H Respiratory Rate Blood Pressure Pulse Oximetry Intake/Output Intake/Output: Intake & Output 03/15/20 03/16/20 03/17/20 03/18/20 23:59 23:59 23:59 23:59 Intake Total 880 1150 1000 Output Total 450 1450 Balance 430 1150 -450 Meds/Results Medications: Active Medications Generic Name Dose Route Start Last Admin Trade Name Freq PRN Reason Stop Dose Admin Acetaminophen 650 mg 03/16/20 05:10 Tylenol Tablet PO Q4H PRN Mild Pain (1-3) or Fever Albuterol 2 puff 03/17/20 13:45 03/17/20 20:32 Proventil Hfa INHALATION 2 puff QIDRT PRN Administration Shortness Of Breath Bumetanide 1 mg 03/17/20 22:00 03/18/20 05:37 Bumex Inj IV PUSH 1 mg Q8HR [facility] Administration Enoxaparin Sodium 40 mg 03/17/20 09:00 03/17/20 10:00 Lovenox SUB-Q 40 mg DAILY [facility] Administration Furosemide 80 mg 03/16/20 17:00 03/17/20 17:54 Lasix Inj IV PUSH Not Given BID [facility] Lisinopril 2.5 mg 03/17/20 09:00 03/17/20 09:59 Prinivil PO 2.5 mg QAM [facility] Administration Lorazepam 1 mg 03/16/20 11:08 03/18/20 05:38 Ativan Tab PO 1 mg Q6H PRN Administration Anxiety Metoprolol Succinate 25 mg 03/17/20 09:00 03/17/20 10:01 Toprol Xl PO 25 mg DAILY [facility] Administration Promethazine HCl 12.5 mg 03/16/20 11:32 03/18/20 05:38 Phenergan Tab PO 12.5 mg Q4H PRN Administration Nausea And Vomiting Sertraline HCl 25 mg 03/17/20 09:00 03/17/20 10:01 Zoloft PO 25 mg DAILY [facility] Administration Spironolactone 25 mg 03/17/20 09:00 03/17/20 10:01 Aldactone PO 25 mg DAILY [facility] Administration Radiology Results: ITS Impressions Chest X-Ray 03/16/20 07:12 IMPRESSION: 1. Diffuse lung disease with worsening in the upp
[2020-03-18] MEDS: ENOXAPARIN 40 MG/0.4 ML SYRINGE SUB-Q (09:27)
[2020-03-18] MEDS: METOPROLOL SUCCINATE EXT REL 25 MG TABCR PO (09:27)
[2020-03-18] MEDS: SPIRONOLACTONE 25 MG TABLET PO (09:27)
[2020-03-18] MEDS: SERTRALINE HCL 25 MG TABLET PO (09:28)
[2020-03-18] MEDS: lisinopriL 2.5 MG TABLET PO (09:29)
--- NOTE | 2020-03-18 15:45 | PM.IMPN ---
Progress Note: A&P Assessment and Plan (1) Acute respiratory failure with hypoxemia: Code(s): J96.01 - Acute respiratory failure with hypoxia Status: Acute Assessment and Plan: Patient with more SOB overnight requiring BiPAP. Does not toelrate well. Could have componenet of anxiety. Continue Zoloft and Ativan prn. Allow for BiPAP as he toelrates. (2) NSVT (nonsustained ventricular tachycardia): Code(s): I47.2 - Ventricular tachycardia Status: Acute Assessment and Plan: 15 beat run of NSVT. Unclear if he had his LifeVest on since he frequently takes this off and does not wear for long stretches of time. Continue tele. Encouraged LifeVest use. (3) Acute systolic heart failure: Code(s): I50.21 - Acute systolic (congestive) heart failure Status: Acute Assessment and Plan: Chest x-ray consistent with CHF and BNP 53658. CT A/P showing persistent extensive airspace consolidation of the visualized lung parenchyma most likely pneumonia and/or edema, small pericardial effusion, right pleural effusion and anasarca. No fevers and WBC slightly elevated but unchanged. PNA felt less likely. Patient felt Lasix was not working so changed to Bumex. He does admit that the edema is better and UOP improved. He is not saving his urine so hard to determine. BP toelrating Bumex. May increase to Bumex tomorrow or add Metolazone. (4) Hyponatremia: Code(s): E87.1 - Hypo-osmolality and hyponatremia Status: Acute Assessment and Plan: Most likely related to fluid overload. Na better to 130. Will monitor closely during diuresis. This should continue to improve. (5) Hx of drug abuse: Code(s): F19.11 - Other psychoactive substance abuse, in remission Status: Chronic Assessment and Plan: Patient has history of drug use and is detailed in prior notes. Patient was educated about the benefits abstaining from drug use. (6) Abdominal pain: Qualifiers: Abdominal location: generalized Qualified Code(s): R10.84 - Generalized abdominal pain Code(s): R10.9 - Unspecified abdominal pain Status: Acute Assessment and Plan: CT A/P showing moderate ascites and anasarca. No fevers and WBC slightly elevated but unchanged. SBP felt to be unlikely. Suspect abd pain related to the ascites and anasarca. Could have mesenteric angina related to his severely low EF. Continue IV diuretics. (7) Hemoptysis: Code(s): R04.2 - Hemoptysis Status: Acute Assessment and Plan: Etiology unclear. He did have a CTA of the chest on March 14 that was negative for PE. Could be related to the CHF as pink sputum. Lower extremity Dopplers negative. Continue to monitor for recurrence. (8) Hepatitis C: Qualifiers: Hepatic coma status: without hepatic coma Viral hepatitis chronicity: unspecified Qualified Code(s): B19.20 - Unspecified viral hepatitis C without hepatic coma Code(s): B19.20 - Unspecified viral hepatitis C without hepatic coma Status: Chronic Assessment and Plan: Hepatitis C antibody was positive. His hepatitis C RNA is pending. (9) DVT prophylaxis: Code(s): Z29.9 - Encounter for prophylactic measures, unspecified Status: Acute Assessment and Plan: Lovenox Subjective Date/time seen: 03/18/20 15:45 Interval history: 29yo male with known sCHF here for CHF exacerbation. Patient with worsening SOB and respirtory difficulties last night requiring BiPAP. Provider overnight states pateint had component of anxiety. Patient feels beter today. He feels his legs are less edematous. Still SOB but better with mask. he only tolerates the BiPAP mask for short periods. Good UOP. Having a dry cough. Refusing IV per RN but did agree to have one placed. Later, RN states pateitn again refusing IV and was verbally abusive to the RN. Exam Narrat
--- NOTE | 2020-03-18 17:00 | PC.NURSE ---
Addendum entered by Myrtle Kaba RN 03/18/20 17:39: Educated on the benefits of LifeVest and risks of refusing to wear it. Original Note: Patient only wearing lifevest and telemetry periodically. Educated on the benefits and risks of this. Patient still refusing at this time. Will continue to educate and reinforce. Dr. Jacquie hernandez.
[2020-03-18] MEDS: ACETAMINOPHEN 325 MG TABLET 650 MG PO (17:15)
[2020-03-18] MEDS: ALBUTEROL SULFATE NEB 2.5 MG/0.5 ML INH (17:28)
--- NOTE | 2020-03-18 17:30 | PC.NURSE ---
Patient requesting breathing treatment. Called to Dr. Dhillon and obtained order for albuterol PRN. Called to respiratory.
[2020-03-18] MEDS: ALBUTEROL SULFATE NEB 2.5 MG/0.5 ML INH INHALATION (19:43)
[2020-03-19] VITALS (20 sets, daily range): BP systolic 92–98; BP diastolic 48–75; PULSE 69–130; RESP 12–30; TEMP 35.8–37.5; O2SAT 93–100
[2020-03-19 06:07] LABS: Basophils Percent Auto 0.3 % (0.2-1.2); Eosinophils Percent Auto 0.3 % (0-4.4); Hematocrit 40.6 % (42.0-52.0); Hemoglobin 13.3 g/dL (14.0-18.0); Immature Granulocyte Absolute 0.04 K/mm3 (0.00-0.031); Immature Granulocyte Percent A 0.4 % (0-0.5); Lymphocytes Absolute Auto 2.42 K/mm3 (0.9-3.2); Lymphocytes Percent Auto 25.4 % (18.3-44.2); Mean Corpuscular HGB Conc 32.8 g/dl (32-36); Mean Corpuscular Hemoglobin 31.4 pg (26-34); Mean Corpuscular Volume 95.8 fl (80-100); Mean Platelet Volume 10.8 fl (7.4-10.4); Monocytes Absolute Auto 0.7 K/mm3 (0.1-0.6); Monocytes Percent Auto 6.8 % (2.6-8.5); Neutrophils Absolute Auto 6.3 K/mm3 (1.3-6.7); Neutrophils Percent Auto 66.8 % (45.5-73.1); Platelet Count Result 297 k/mm3 (150-375); Red Blood Count 4.24 M/mm3 (4.6-6.20); Red Cell Distribution Width 18.2 % (11.5-14.5); White Blood Count 9.5 K/mm3 (4.5-10.0)
[2020-03-19 06:12] LABS: Alanine Aminotransferase 35 U/L (4-50); Alkaline Phosphatase 139 U/L (38-126); Aspartate Amino Transferase 46 U/L (17-59); Bilirubin,Total 1.8 mg/dL (0.2-1.3); Blood Urea Nitrogen 40 mg/dL (9-20); Carbon Dioxide 30 mmol/L (22-30); Chloride 91 mmol/L (98-107); Estimated CRCL calculation 107 ml/min; Estimated Glomerular Filt Rate > 60; Glucose 119 mg/dL (75-110); Magnesium 1.9 mg/dL (1.6-2.3); Phosphorus 3.8 mg/dL (2.5-4.5); Potassium 3.4 mmol/L (3.4-5.0); Sodium 129 mmol/L (137-145)
[2020-03-19] MEDS: LORAZEPAM 1 MG TABLET PO ×2 (06:16→15:59)
[2020-03-19] MEDS: BUMETANIDE INJ 1 MG/4 ML VIAL IV PUSH ×3 (06:16→21:58)
[2020-03-19] MEDS: ALBUTEROL SULFATE NEB 2.5 MG/0.5 ML INH INHALATION ×3 (06:27→17:41)
--- NOTE | 2020-03-19 06:58 | ECG_ITS ---
Measurements Intervals [place] Rate: 110 P: 21 WI: 136 QRS: -43 QRSD: 94 T: 48 QT: 328 QTc: 444 Interpretive Statements SINUS TACHYCARDIA LEFT ATRIAL ENLARGEMENT LOW QRS VOLTAGE IN PRECORDIAL LEADS POOR R WAVE PROGRESSION, CONSIDER ANTERIOR INFARCT INFERIOR INFARCT, AGE INDETERMINATE BORDERLINE T WAVE ABNORMALITY- HIGH LATERAL LEADS ABNORMAL ECG Electronically Signed On 03-19-2020 7:13:51 CDT by Jet Bains D.O.
--- NOTE | 2020-03-19 07:06 | PM.IMPN ---
Progress Note: A&P Assessment and Plan (1) Chest pain: Qualifiers: Chest pain type: unspecified Qualified Code(s): R07.9 - Chest pain, unspecified Code(s): R07.9 - Chest pain, unspecified Status: Acute Assessment and Plan: Patient with cough and chest pain this morning. Lexiscan stress test negative for reversible ischemia but with a small area fixed defect and EF was 18% on March 01. Unclear if he gets anxious (may be related to being annoyed at the disruption this morning?) or related to cough. He may have n/v induced by anxiety as well. He was given ativan and phenergan prior to my arrival which probably has helped. Continue tele. Stat EKG ordered showing sinus tach with poor R wave progression and T wave changes in high lateral leads. No change overall when compared to admission EKG. CXR and Trop ordered. CXR showing persistent difuse lung disease worse in the RLL. This seems to be persistetn when compared to CXR from 03/11 and 02/26. Doubt this is PNA since he is not septic. Consider autoimmune process. Check cryo (HepC pending, LIZZIE, ANCA, CRP. Trop negaitve. Hold Lisinopril and Spironolactone to try to have more BP to work with. Does better with IV atican so will lower dose and change to IV route. Consider pulm consult if unable to improve CXR with diuresis. (2) Acute respiratory failure with hypoxemia: Code(s): J96.01 - Acute respiratory failure with hypoxia Status: Acute Assessment and Plan: Patient with more SOB the other night and BiPAP ordered. Patient has been using it periodically. He wore BiPAP for about 4 hours last night. Will continue BiPAP use as needed and at night as he tolerates. (3) NSVT (nonsustained ventricular tachycardia): Code(s): I47.2 - Ventricular tachycardia Status: Acute Assessment and Plan: 15 beat run of NSVT the other day. He is high risk for malignant dysrhythmias. Unclear if he had his LifeVest on at that time. He frequently takes this off and does not wear for long stretches of time. Tele showing 3-4 beat run of NSVT overnight. Continue tele. Encourage LifeVest use. (4) Acute systolic heart failure: Code(s): I50.21 - Acute systolic (congestive) heart failure Status: Acute Assessment and Plan: Chest x-ray consistent with CHF and BNP 68999. Etiology unclear for his CMP. CT A/P showing persistent extensive airspace consolidation of the visualized lung parenchyma pneumonia and/or edema, small pericardial effusion, right pleural effusion and anasarca. No fevers and WBC normal now making PNA less likely. WBC normallized without abx. Will repeat CXR and consider abx given his cough. Patient felt Lasix was not working so changed to Bumex. I/O's not accurate. Daily weight relatively unchanged. Clinically appears to be improving. Cr stable and BUN better. Will continue Bumex at current dose. Add metolazone if BP improves. Hold spironolactone, lisnopril. (5) Hyponatremia: Code(s): E87.1 - Hypo-osmolality and hyponatremia Status: Acute Assessment and Plan: Most likely related to fluid overload. Na better overall but slightly worse today. Will monitor closely during diuresis. (6) Hx of drug abuse: Code(s): F19.11 - Other psychoactive substance abuse, in remission Status: Chronic Assessment and Plan: Patient has history of drug use and is detailed in prior notes. UDS negative here on admission. Patient was educated about the benefits abstaining from drug use. (7) Abdominal pain: Qualifiers: Abdominal location: generalized Qualified Code(s): R10.84 - Generalized abdominal pain Code(s): R10.9 - Unspecified abdominal pain Status: Acute Assessment and Plan: CT A/P showing moderate ascites and anasarca. No fevers and WBC normal now without abx. SBP felt to be unlikely. Suspect abd pain related to the
--- NOTE | 2020-03-19 08:12 | PM.PNCARD ---
Progress Note: A&P Assessment and Plan (1) Hepatitis C: Status: Chronic (2) Methamphetamine abuse: Status: Chronic Assessment and Plan: Couseled regarding quitting and effect it could have on his heart. 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 No ischemia based on Lexiscan myoview stress test. On Toprol XL 25 mg daily and Lisinopril 2.5 mg daily, and Spironolactone 25 mg daily. He is on Bumex 1 mg IV q 8 hours. States he has more urine output from it. May need to continue Metolazone for synergistic diuretic effect if his urine output decreases. Consider ultrafiltration with PICC line to pull fluids off of him if he fails diuretic therapy. He is wearing Life vest to prevent sudden cardiac arrest. He has abdominal pain could be from ascites causing abdominal distention. Consider paracentesis for symptomatic relief. (4) NSVT (nonsustained ventricular tachycardia): Status: Acute Subjective Date/time seen: 03/19/20 08:12 Alert and oriented and awake this morning. Had breakfast then was nauseated from it. No more chest pain. He is complaining of abdominal pain. Exam Const: Other: Somnolent Neck: Neck: no JVD Carotids: no bruits Resp: Effort & Inspection: tachypneic Other: Coarse breath sounds bilaterally Cardio: Rate: regular rate and tachycardic Rhythm: regular rhythm Heart sounds: no murmurs GI: Other: Non-tender Neuro: Speech: normal speech Extrem: Right lower extremity: edema Left lower extremity: edema Other: Moderate edema of feet and mod edema of legs Objective Data Vital Signs Vital Signs: Vital Signs - 24 hr 03/18/20 12:00 03/18/20 14:00 03/18/20 14:26 Temperature 97.0 F L Pulse Rate 111 H 77 104 H Respiratory Rate 30 H 32 H Blood Pressure 112/69 Pulse Oximetry 94 100 03/18/20 17:36 03/18/20 17:43 03/18/20 19:40 Temperature Pulse Rate 118 H 115 H 138 H Respiratory Rate 25 H 25 H 26 H Blood Pressure Pulse Oximetry 03/18/20 19:48 03/18/20 20:00 03/18/20 22:00 Temperature 97.0 F L Pulse Rate 138 H 117 H 106 H Respiratory Rate 26 H 16 Blood Pressure 96/73 L Pulse Oximetry 100 03/18/20 22:16 03/19/20 00:00 03/19/20 04:00 Temperature Pulse Rate 109 H 98 97 Respiratory Rate 31 H Blood Pressure Pulse Oximetry 100 03/19/20 05:56 03/19/20 06:28 03/19/20 06:33 Temperature 96.4 F L Pulse Rate 103 H 104 H 111 H Respiratory Rate 14 23 H 28 H Blood Pressure 94/65 L Pulse Oximetry 99 03/19/20 06:55 Temperature Pulse Rate 130 H Respiratory Rate Blood Pressure 98/75 L Pulse Oximetry 100 Intake/Output Intake/Output: Intake & Output 03/16/20 03/17/20 03/18/20 03/19/20 23:59 23:59 23:59 23:59 Intake Total 880 1150 1900 780 Output Total 450 1850 Balance 430 1150 50 780 Meds/Results Medications: Active Medications Generic Name Dose Route Start Last Admin Trade Name Freq PRN Reason Stop Dose Admin Acetaminophen 650 mg 03/16/20 05:10 03/18/20 17:15 Tylenol Tablet PO 650 mg Q4H PRN Administration Mild Pain (1-3) or Fever Albuterol 2.5 mg 03/18/20 17:23 03/19/20 06:27 Albuterol Sulf Neb 2.5mg/0.5ml INHALATION 2.5 mg Q6HRT PRN Administration Shortness Of Breath Bumetanide 1 mg 03/17/20 22:00 03/19/20 06:16 Bumex Inj IV PUSH 1 mg Q8HR RLAF Administration Calcium Carbonate 200 mg 03/19/20 07:37 Tums PO Q6H PRN Indigestion Enoxaparin Sodium 40 mg 03/17/20 09:00 03/18/20 09:27 Lovenox SUB-Q 40 mg DAILY RALF Administration Guaifenesin 600 mg 03/18/20 21:00 03/18/20 21:28 Mucinex 12 Hr Tab PO 600 mg Q12HR RALF Administration Lisinopril 2.5 mg 03/17/20 09:00 03/18/20 09:29 Prinivil PO 2.5 mg QAM RALF Administration Lorazepam 1 mg 03/16/20 11:08 03/19/20 06:16
[2020-03-19 08:16] LABS: Troponin I 0.022 ng/mL (0.000-0.034)
--- NOTE | 2020-03-19 08:54 | PC.NURSE ---
lumber tailer alarming. Went to room and patient had turned his bed alarm off and gotten into the shower. lumber tailer and life vest sitting in the chair in the room. Patient in the shower with the door closed. Entered bathroom to check on patient and he yelled at me saying get out of the bathroom and shut the door! I'm cold in here! I explained to the patient that it is my responsibility to make sure he is safe and okay and when his alarms are sounding, I will be coming in to check on him. Patient continues to yell close the door! Patient is showering with his IV in his arm as well. I informed the patient that he should not be showering without his IV protected as well. Patient continued to yell at me to get out of the bathroom. Notified charge nurse of incident.
[2020-03-19] MEDS: ENOXAPARIN 40 MG/0.4 ML SYRINGE SUB-Q (09:00)
[2020-03-19] MEDS: POTASSIUM CHLORIDE 20 MEQ TABLET PO (09:30)
[2020-03-19] MEDS: lisinopriL 2.5 MG TABLET PO (09:31)
[2020-03-19] MEDS: METOPROLOL SUCCINATE EXT REL 25 MG TABCR PO (09:31)
[2020-03-19] MEDS: SERTRALINE HCL 25 MG TABLET PO (09:32)
[2020-03-19] MEDS: SPIRONOLACTONE 25 MG TABLET PO (09:32)
[2020-03-19] MEDS: PANTOPRAZOLE 40 MG TABLET PO (09:32)
--- NOTE | 2020-03-19 09:43 | PC.NURSE ---
Patient continually retching into trashcan and forcing himself to dry heave and vomit. Then requests apple juice and cereal and milk. Discussed this with patient and encouraged him to try allowing his stomach to rest for awhile but patient insists on having cereal and milk brought up from kitchen. I discussed necessity of telemetry with patient and he allowed me to place it back on him. Patient also back in bed - but continues to dry heave and cough.
--- NOTE | 2020-03-19 11:06 | PC.NURSE ---
Patient c/o feeling like he can't breathe . VS: Temp 97.3, HR 110, RR 30, pulse ox 100% on room air, BP 98/67. Encouraged patient to take slow, deep breaths and try to relax. Phenergan recently given for nausea.
--- NOTE | 2020-03-19 11:19 | PC.NURSE ---
Called Dr. Dhillon and notified him of continued retching, vomiting, and anxiety. Notified him of patient vital signs. Orders received for IV Ativan x 1.
[2020-03-19] MEDS: LORAZEPAM INJ 2 MG/ML VIAL 0.5 MG IV PUSH (11:33)
--- NOTE | 2020-03-19 15:37 | PC.NURSE ---
Patient finally resting quietly and sleeping at intervals. Refused 1400 Bumex, stating he wants it given later when he wakes up.
--- NOTE | 2020-03-19 17:36 | PC.NURSE ---
Patient requesting something for cough. Called Dr. Dhillon. Patient is on Mucinex q12hr. Per Dr. Dhillon, continue Mucinex as ordered.
[2020-03-20] VITALS (15 sets, daily range): BP systolic 91–134; BP diastolic 58–68; PULSE 102–117; RESP 22–40; TEMP 37.1–37.4; O2SAT 93–100
[2020-03-20] MEDS: LORAZEPAM INJ 2 MG/ML VIAL 0.5 MG IV PUSH ×3 (03:30→21:41)
[2020-03-20 05:51] LABS: Blood Urea Nitrogen 37 mg/dL (9-20); CRP 5.8 mg/dL (<1.0); Calcium 8.2 mg/dL (8.4-10.2); Carbon Dioxide 24 mmol/L (22-30); Chloride 91 mmol/L (98-107); Estimated CRCL calculation 97 ml/min; Estimated Glomerular Filt Rate > 60; Glucose 108 mg/dL (75-110); Potassium 4.3 mmol/L (3.4-5.0); Sodium 130 mmol/L (137-145)
[2020-03-20] MEDS: BUMETANIDE INJ 1 MG/4 ML VIAL IV PUSH ×3 (05:51→21:39)
--- NOTE | 2020-03-20 06:24 | PC.NURSE ---
this patient has worn his life vest only for short amounts of time this shift. he is very difficult to reason with on his health care.
--- NOTE | 2020-03-20 07:25 | PM.PNCARD ---
Progress Note: A&P Assessment and Plan (1) Hepatitis C: (2) Methamphetamine abuse: Assessment and Plan: Couseled regarding quitting and effect it could have on his heart. (3) Acute exacerbation of CHF (congestive heart failure): Assessment and Plan: Acute dilated cardiomyopathy with significant systolic dysfunction, EF 10-15%. No ischemia based on Lexiscan myoview stress test. On Toprol XL 25 mg daily and Lisinopril 2.5 mg daily on hold, and off Spironolactone 25 mg daily on hold. He is on Bumex 1 mg IV q 8 hours. States he has more urine output from it. May need to continue Metolazone for synergistic diuretic effect if his urine output decreases. Consider ultrafiltration with PICC line to pull fluids off of him if he fails diuretic therapy. He is not wearing Life vest to prevent sudden cardiac arrest this morning. He has abdominal pain could be from ascites causing abdominal distention. Consider paracentesis for symptomatic relief. (4) NSVT (nonsustained ventricular tachycardia): (5) Anxiety: Code(s): F41.9 - Anxiety disorder, unspecified Status: Acute Assessment and Plan: He would like his anxiety medication increased. Subjective Date/time seen: 03/20/20 07:25 He states he has extreme anxiety and would like his anxiety medication increased. He is seeing people in his room who are not there. He vomited once this morning. No chest pain. Has sob. Exam Const: General: no acute distress and uncomfortable Neck: Neck: no JVD Carotids: no bruits Resp: Auscultation: clear to auscultation bilaterally, no crackles, no rales, no rhonchi and no wheezes Cardio: Rate: regular rate and tachycardic Heart sounds: no murmurs GI: Auscultation: normal bowel sounds Neuro: Speech: normal speech Extrem: Right lower extremity: edema Left lower extremity: edema Other: Mod edema of legs Objective Data Vital Signs Vital Signs: Vital Signs - 24 hr 03/19/20 08:45 03/19/20 09:31 03/19/20 11:08 Temperature 97.3 F L Pulse Rate 107 H 106 H 110 H Respiratory Rate 30 H Blood Pressure 98/67 L Pulse Oximetry 100 03/19/20 12:00 03/19/20 12:45 03/19/20 12:47 Temperature Pulse Rate 69 115 H Respiratory Rate 30 H Blood Pressure Pulse Oximetry 95 03/19/20 14:00 03/19/20 16:00 03/19/20 17:37 Temperature 98.2 F Pulse Rate 115 H 112 H 115 H Respiratory Rate 24 H 26 H Blood Pressure 98/59 L Pulse Oximetry 99 03/19/20 17:46 03/19/20 17:48 03/19/20 20:00 Temperature Pulse Rate 114 H 114 H 106 H Respiratory Rate 27 H 27 H Blood Pressure Pulse Oximetry 100 03/19/20 20:19 03/19/20 22:11 03/20/20 00:00 Temperature 99.5 F Pulse Rate 102 H 102 H Respiratory Rate 12 Blood Pressure 92/48 L Pulse Oximetry 93 100 03/20/20 04:00 03/20/20 05:45 Temperature 98.8 F Pulse Rate 111 H 113 H Respiratory Rate 24 H Blood Pressure 98/68 L Pulse Oximetry 100 Intake/Output Intake/Output: Intake & Output 03/17/20 03/18/20 03/19/20 03/20/20 23:59 23:59 23:59 23:59 Intake Total 1150 1900 1510 830 Output Total 1850 Balance 1150 50 1510 830 Meds/Results Medications: Active Medications Generic Name Dose Route Start Last Admin Trade Name Freq PRN Reason Stop Dose Admin Acetaminophen 650 mg 03/16/20 05:10 03/18/20 17:15 Tylenol Tablet PO 650 mg Q4H PRN Administration Mild Pain (1-3) or Fever Albuterol 2.5 mg 03/18/20 17:23 03/19/20 17:41 Albuterol Sulf Neb 2.5mg/0.5ml INHALATION 2.5 mg Q6HRT PRN Administration Shortness Of Breath Bumetanide 1 mg 03/17/20 22:00 03/20/20 05:51 Bumex Inj IV PUSH 1 mg Q8HR RALF Administration Calcium Carbonate 200 mg 03/19/20 07:37 Tums PO Q6H PRN Indigestion Enoxaparin Sodium 40 mg 03/17/20 09:00 03/19/20 09:00 Lovenox SUB-Q 40 mg DAILY RALF Administration Guaifenesin 600 mg 03/18/20 21:00 03/19/20 21:58 Mucinex 12 Hr Tab
[2020-03-20] MEDS: ENOXAPARIN 40 MG/0.4 ML SYRINGE SUB-Q (08:41)
[2020-03-20] MEDS: PANTOPRAZOLE 40 MG TABLET PO (08:41)
[2020-03-20] MEDS: SERTRALINE HCL 25 MG TABLET PO (08:41)
[2020-03-20] MEDS: METOPROLOL SUCCINATE EXT REL 25 MG TABCR PO (08:41)
[2020-03-20] MEDS: ALBUTEROL SULFATE NEB 2.5 MG/0.5 ML INH INHALATION (13:34)
--- NOTE | 2020-03-20 15:03 | PM.IMPN ---
Progress Note: A&P Assessment and Plan (1) Acute respiratory failure with hypoxemia: Code(s): J96.01 - Acute respiratory failure with hypoxia Status: Acute Assessment and Plan: Result of CHF exacerbation. Patient has been using BiPAP for comfort. Does ask of settings can be decreased. Will make slight adjustment to BiPAP as he does appear uncomfortable. Will continue to monitor. He is on room air when not on BiPAP. (2) Acute exacerbation of CHF (congestive heart failure): Qualifiers: Heart failure type: systolic Qualified Code(s): I50.23 - Acute on chronic systolic (congestive) heart failure Code(s): I50.9 - Heart failure, unspecified Status: Acute Assessment and Plan: Findings consistent with CHF exacerbation on admission. Cardiology consulted and appreciate input. Patient with known EF 10-15 %. No ischemia based on Lexiscan Myoview stress test. Patient not wearing LifeVest at this time. Spironolactone and lisinopril remain on hold. Will continue IV Bumex and metoprolol. Will continue to monitor. (3) NSVT (nonsustained ventricular tachycardia): Code(s): I47.2 - Ventricular tachycardia Status: Acute Assessment and Plan: Patient had 15 beat run of NSVT T prior in admission. Not wearing his LifeVest as noted above. Telemetry reviewed on 03/20/2020 with current sinus rhythm. Encouraged use of LifeVest. Will continue to monitor. (4) Hyponatremia: Code(s): E87.1 - Hypo-osmolality and hyponatremia Status: Acute Assessment and Plan: Sodium remains stable at 130 today. Will continue to monitor. (5) Hx of drug abuse: Code(s): F19.11 - Other psychoactive substance abuse, in remission Status: Chronic Assessment and Plan: Known history of drug use including methamphetamine. Urine drug screen negative on admission. Has already been educated about benefits of abstaining from illicit drug use. (6) Abdominal pain: Qualifiers: Abdominal location: generalized Qualified Code(s): R10.84 - Generalized abdominal pain Code(s): R10.9 - Unspecified abdominal pain Status: Acute Assessment and Plan: CT abdomen/pelvis with moderate ascites and anasarca. Continue IV diuretics. Also remains on Protonix. Will hold off on paracentesis for the time beating but may become necessary if not improving. (7) Hemoptysis: Code(s): R04.2 - Hemoptysis Status: Acute Assessment and Plan: No further issue. Previous CTA chest on 03/14 20- for pulmonary embolism. Lower extremity Dopplers negative. More likely result of CHF at this time. Will monitor. Hemoglobin stable at 13.3 on 03/19/2020. (8) Hepatitis C: Qualifiers: Hepatic coma status: without hepatic coma Viral hepatitis chronicity: unspecified Qualified Code(s): B19.20 - Unspecified viral hepatitis C without hepatic coma Code(s): B19.20 - Unspecified viral hepatitis C without hepatic coma Status: Chronic Assessment and Plan: Hepatitis C antibody was positive. Hepatitis C RNA still pending. (9) DVT prophylaxis: Code(s): Z29.9 - Encounter for prophylactic measures, unspecified Status: Acute Assessment and Plan: Lovenox. Time Spent With Patient Time with patient: 15 - 25 minutes Subjective Date/time seen: 03/20/20 15:03 Interval history: Date of Service: 03/20/2020. Admitted with CHF exacerbation. In bed. Feels short of breath. Also complains of diarrhea and nausea but no vomiting today. Has abdominal pain. No chest pain. No headache. Does have anxiety. Review of Systems Constitutional: Constitutional: Denies chills and Denies fever(s) ENT: Denies dysphagia Cardiovascular: Cardiovascular: Denies chest pain and Reports leg edema Respiratory: Respiratory: Reports dyspnea Gastrointestinal: Gastrointestinal: Reports abdominal pain, Reports diarrhea, Reports
[2020-03-21] VITALS (12 sets, daily range): BP systolic 101–118; BP diastolic 71–76; PULSE 96–114; RESP 22–28; TEMP 36.7–37.6; O2SAT 93–100
[2020-03-21] MEDS: BUMETANIDE INJ 1 MG/4 ML VIAL IV PUSH ×3 (05:15→22:16)
[2020-03-21] MEDS: LORAZEPAM INJ 2 MG/ML VIAL 0.5 MG IV PUSH ×3 (05:15→20:46)
[2020-03-21] MEDS: CALCIUM CARBONATE (TUMS) 500 MG (200 MG ELEMENTAL) PO ×2 (05:17→11:30)
--- NOTE | 2020-03-21 08:04 | PM.PNCARD ---
Progress Note: A&P Assessment and Plan (1) Hepatitis C: (2) Methamphetamine abuse: Assessment and Plan: Couseled regarding quitting and effect it could have on his heart. (3) Acute exacerbation of CHF (congestive heart failure): Assessment and Plan: Acute dilated cardiomyopathy with significant systolic dysfunction, EF 10-15%. No ischemia based on Lexiscan myoview stress test. On Toprol XL 25 mg daily and Lisinopril 2.5 mg daily on hold, and off Spironolactone 25 mg daily on hold. Consider starting Entresto if BP allows today since he has been off Lisionpril >36 hours. He is on Bumex 1 mg IV q 8 hours. States he has more urine output from it and edema improving. May need to continue Metolazone for synergistic diuretic effect if his urine output decreases. Consider ultrafiltration with PICC line to pull fluids off of him if he fails diuretic therapy. He is not wearing Life vest to prevent sudden cardiac arrest this morning. He has abdominal pain could be from ascites causing abdominal distention. Consider paracentesis for symptomatic relief. (4) NSVT (nonsustained ventricular tachycardia): (5) Anxiety: Code(s): F41.9 - Anxiety disorder, unspecified Status: Acute Assessment and Plan: He would like his anxiety medication increased. Subjective Date/time seen: 03/21/20 08:04 Patient is somnolent this morning but answered with 1 word answers. No chest pain. Stomach discomfort. Exam Const: General: no acute distress Neck: Neck: no JVD Carotids: no bruits Resp: Auscultation: no crackles, no rales, no rhonchi, no wheezes and diminished lung sounds Cardio: Rate: tachycardic Rhythm: regular rhythm Heart sounds: no murmurs GI: Auscultation: normal bowel sounds Extrem: Right lower extremity: edema Left lower extremity: edema Other: Mild edema of legs Objective Data Vital Signs Vital Signs: Vital Signs - 24 hr 03/20/20 08:41 03/20/20 12:15 03/20/20 13:36 Temperature Pulse Rate 110 H 111 H 110 H Respiratory Rate 24 H Blood Pressure Pulse Oximetry 03/20/20 13:45 03/20/20 14:00 03/20/20 14:13 Temperature 98.8 F Pulse Rate 104 H 116 H 117 H Respiratory Rate 24 H 37 H 40 H Blood Pressure 91/65 L Pulse Oximetry 93 96 03/20/20 16:00 03/20/20 20:00 03/20/20 20:09 Temperature Pulse Rate 113 H 105 H 112 H Respiratory Rate 22 H Blood Pressure Pulse Oximetry 95 03/20/20 21:51 03/20/20 22:30 03/21/20 00:00 Temperature 99.3 F Pulse Rate 115 H 109 H 111 H Respiratory Rate 28 H 32 H Blood Pressure 134/58 L Pulse Oximetry 94 99 03/21/20 04:00 03/21/20 05:51 Temperature 99.6 F Pulse Rate 96 114 H Respiratory Rate 28 H Blood Pressure 105/72 Pulse Oximetry 100 Intake/Output Intake/Output: Intake & Output 03/18/20 03/19/20 03/20/20 03/21/20 23:59 23:59 23:59 23:59 Intake Total 1900 1510 1930 1170 Output Total 1850 Balance 50 1510 1930 1170 Meds/Results Medications: Active Medications Generic Name Dose Route Start Last Admin Trade Name Freq PRN Reason Stop Dose Admin Acetaminophen 650 mg 03/16/20 05:10 03/18/20 17:15 Tylenol Tablet PO 650 mg Q4H PRN Administration Mild Pain (1-3) or Fever Albuterol 2.5 mg 03/18/20 17:23 03/20/20 13:34 Albuterol Sulf Neb 2.5mg/0.5ml INHALATION 2.5 mg Q6HRT PRN Administration Shortness Of Breath Bumetanide 1 mg 03/17/20 22:00 03/21/20 05:15 Bumex Inj IV PUSH 1 mg Q8HR RALF Administration Calcium Carbonate 200 mg 03/19/20 07:37 03/21/20 05:17 Tums PO 200 mg Q6H PRN Administration Indigestion Enoxaparin Sodium 40 mg 03/17/20 09:00 03/20/20 08:41 Lovenox SUB-Q 40 mg DAILY RALF Administration Guaifenesin 600 mg 03/18/20 21:00 03/20/20 21:39 Mucinex 12 Hr Tab PO 600 mg Q12HR RALF Administration Lisinopril 2.5 mg 03/17/20 09:00 03/19/20 09:31 Prinivil PO 2.5 mg QAM RALF Administration Emma
[2020-03-21] MEDS: ENOXAPARIN 40 MG/0.4 ML SYRINGE SUB-Q (08:29)
[2020-03-21] MEDS: SERTRALINE HCL 25 MG TABLET PO (08:29)
[2020-03-21] MEDS: PANTOPRAZOLE 40 MG TABLET PO (08:29)
[2020-03-21] MEDS: METOPROLOL SUCCINATE EXT REL 25 MG TABCR PO (08:29)
[2020-03-21] MEDS: ACETAMINOPHEN 325 MG TABLET 650 MG PO (13:43)
[2020-03-21] MEDS: CALCIUM CARBONATE (TUMS) 500 MG (200 MG ELEMENTAL) 400 MG PO ×2 (13:44→22:19)
[2020-03-21 15:03] LABS: Blood Urea Nitrogen 39 mg/dL (9-20); Calcium 8.3 mg/dL (8.4-10.2); Carbon Dioxide 22 mmol/L (22-30); Chloride 88 mmol/L (98-107); Estimated CRCL calculation 71 ml/min; Estimated Glomerular Filt Rate 60; Glucose 109 mg/dL (75-110); Potassium 4.7 mmol/L (3.4-5.0); Sodium 126 mmol/L (137-145)
--- NOTE | 2020-03-21 15:58 | PM.IMPN ---
Progress Note: A&P Assessment and Plan (1) Acute respiratory failure with hypoxemia: Code(s): J96.01 - Acute respiratory failure with hypoxia Status: Acute Assessment and Plan: Result of CHF exacerbation. Patient has been using BiPAP for comfort. On room air when not on BiPAP. Also complicated by anasarca and pressure from abdomen. Will continue to monitor. (2) Acute exacerbation of CHF (congestive heart failure): Qualifiers: Heart failure type: systolic Qualified Code(s): I50.23 - Acute on chronic systolic (congestive) heart failure Code(s): I50.9 - Heart failure, unspecified Status: Acute Assessment and Plan: Findings consistent with CHF exacerbation on admission. Cardiology consulted and appreciate input. Patient with known EF 10-15 %. No ischemia based on Lexiscan Myoview stress test. Patient still not wearing LifeVest at this time. Spironolactone and lisinopril remain on hold. Will continue IV Bumex every 8 hours as well as metoprolol. Will continue to monitor. (3) NSVT (nonsustained ventricular tachycardia): Code(s): I47.2 - Ventricular tachycardia Status: Acute Assessment and Plan: Patient had 15 beat run of NSVT T prior in admission. Not wearing his LifeVest as noted above. Telemetry reviewed on 03/21/2020 with current sinus rhythm. Encouraged use of LifeVest. Will continue to monitor. (4) Hyponatremia: Code(s): E87.1 - Hypo-osmolality and hyponatremia Status: Acute Assessment and Plan: Sodium 126 today. Will continue to monitor. (5) Abdominal pain: Qualifiers: Abdominal location: generalized Qualified Code(s): R10.84 - Generalized abdominal pain Code(s): R10.9 - Unspecified abdominal pain Status: Acute Assessment and Plan: CT abdomen/pelvis with moderate ascites and anasarca. Continue IV diuretics. Also remains on Protonix. Tums added today. Discussed with patient possible ultrasound-guided paracentesis will need to see INR level. If INR is too high will not be able to perform. (6) Hx of drug abuse: Code(s): F19.11 - Other psychoactive substance abuse, in remission Status: Chronic Assessment and Plan: Known history of drug use including methamphetamine. Urine drug screen negative on admission. Has already been educated about benefits of abstaining from illicit drug use. (7) Hemoptysis: Code(s): R04.2 - Hemoptysis Status: Acute Assessment and Plan: No further issue. Previous CTA chest on 03/14/2020 for pulmonary embolism. Lower extremity Dopplers negative. More likely result of CHF at this time. Will monitor. Hemoglobin stable at 13.3 on 03/19/2020. (8) Hepatitis C: Qualifiers: Hepatic coma status: without hepatic coma Viral hepatitis chronicity: unspecified Qualified Code(s): B19.20 - Unspecified viral hepatitis C without hepatic coma Code(s): B19.20 - Unspecified viral hepatitis C without hepatic coma Status: Chronic Assessment and Plan: Hepatitis C antibody was positive. Hepatitis C RNA still pending. (9) DVT prophylaxis: Code(s): Z29.9 - Encounter for prophylactic measures, unspecified Status: Acute Assessment and Plan: Lovenox. Time Spent With Patient Time with patient: 15 - 25 minutes Subjective Date/time seen: 03/21/20 15:58 Interval history: Date of Service: 03/21/2020. Admitted with CHF exacerbation. Complains of not feeling well. Particularly complains discomfort. Does have shortness of breath. No chest pain. No headache or dizziness. Review of Systems Review of Systems: Narrative: Does not feel well Constitutional: Constitutional: Denies chills and Denies fever(s) ENT: Denies dysphagia Cardiovascular: Cardiovascular: Denies chest pain and Reports leg edema Respiratory: Respiratory: Reports dyspnea Gastrointestinal: Gastrointestinal: Rep
[2020-03-22] VITALS (10 sets, daily range): BP systolic 100–121; BP diastolic 62–76; PULSE 104–118; RESP 22–32; TEMP 36.6–37.6; O2SAT 94–98
[2020-03-22] MEDS: BUMETANIDE INJ 1 MG/4 ML VIAL IV PUSH ×3 (06:03→20:40)
[2020-03-22] MEDS: LORAZEPAM INJ 2 MG/ML VIAL 0.5 MG IV PUSH ×3 (06:03→19:35)
[2020-03-22] MEDS: CALCIUM CARBONATE (TUMS) 500 MG (200 MG ELEMENTAL) 400 MG PO ×3 (06:05→17:54)
--- NOTE | 2020-03-22 08:01 | PM.PNCARD ---
Progress Note: A&P Assessment and Plan (1) Hepatitis C: Status: Chronic (2) Methamphetamine abuse: Status: Chronic Assessment and Plan: Couseled regarding quitting and effect it could have on his heart. 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 No ischemia based on Lexiscan myoview stress test. On Toprol XL 25 mg daily and Lisinopril 2.5 mg daily on hold, and off Spironolactone 25 mg daily on hold. Consider starting Entresto if BP allows today since he has been off Lisionpril >36 hours, however will hold off due to elevated Creatinine compared to baseline on yesterday's lab. He is on Bumex 1 mg IV q 8 hours. States he has more urine output from it and edema improving. May need to continue Metolazone for synergistic diuretic effect if his urine output decreases. Consider ultrafiltration with PICC line to pull fluids off of him if he fails diuretic therapy. He is not wearing Life vest to prevent sudden cardiac arrest this morning. He has abdominal pain could be from ascites causing abdominal distention. Consider paracentesis for symptomatic relief if there's significant ascites. (4) NSVT (nonsustained ventricular tachycardia): Status: Acute (5) Anxiety: Code(s): F41.9 - Anxiety disorder, unspecified Status: Acute Assessment and Plan: He would like his anxiety medication increased. Subjective Date/time seen: 03/22/20 08:01 Reports abdominal pain and wants fluid removed from it. Vomited x 1. Denies chest pain. Exam Const: General: no acute distress Neck: Neck: no JVD Carotids: no bruits Resp: Auscultation: no crackles, no rales, no rhonchi, no wheezes and diminished lung sounds Cardio: Rate: tachycardic Rhythm: regular rhythm Heart sounds: no murmurs GI: Auscultation: normal bowel sounds Extrem: Right lower extremity: edema Left lower extremity: edema Other: Moderate edema of legs Objective Data Vital Signs Vital Signs: Vital Signs - 24 hr 03/21/20 08:29 03/21/20 09:21 03/21/20 14:00 Temperature 98.0 F Pulse Rate 106 H 106 H Respiratory Rate 27 H 22 H Blood Pressure 118/71 Pulse Oximetry 100 03/21/20 14:30 03/21/20 15:35 03/21/20 16:00 Temperature Pulse Rate 105 H 105 H Respiratory Rate Blood Pressure Pulse Oximetry 96 03/21/20 20:00 03/21/20 21:45 03/22/20 00:00 Temperature 98.0 F Pulse Rate 104 H 109 H 104 H Respiratory Rate 24 H Blood Pressure 101/76 Pulse Oximetry 93 03/22/20 04:00 03/22/20 05:45 Temperature 97.9 F Pulse Rate 106 H 104 H Respiratory Rate 24 H Blood Pressure 104/69 Pulse Oximetry 95 Intake/Output Intake/Output: Intake & Output 03/19/20 03/20/20 03/21/20 03/22/20 23:59 23:59 23:59 23:59 Intake Total 1510 1930 2470 1250 Output Total 400 Balance 1510 1930 2070 1250 Meds/Results Medications: Active Medications Generic Name Dose Route Start Last Admin Trade Name Freq PRN Reason Stop Dose Admin Acetaminophen 650 mg 03/16/20 05:10 03/21/20 13:43 Tylenol Tablet PO 650 mg Q4H PRN Administration Mild Pain (1-3) or Fever Albuterol 2.5 mg 03/18/20 17:23 03/20/20 13:34 Albuterol Sulf Neb 2.5mg/0.5ml INHALATION 2.5 mg Q6HRT PRN Administration Shortness Of Breath Bumetanide 1 mg 03/17/20 22:00 03/22/20 06:03 Bumex Inj IV PUSH 1 mg Q8HR RALF Administration Calcium Carbonate 400 mg 03/21/20 13:32 03/22/20 06:05 Tums PO 400 mg Q4H PRN Administration Indigestion Enoxaparin Sodium 40 mg 03/17/20 09:00 03/21/20 08:29 Lovenox SUB-Q 40 mg DAILY RALF Administration Guaifenesin 600 mg 03/18/20 21:00 03/21/20 20:46 Mucinex 12 Hr Tab PO 600 mg Q12HR RALF Administration Lisinopril 2.5 mg 03/17/20 09:00 03/19/20 09:31 Prinivil PO 2.5 mg [facility]
[2020-03-22] MEDS: SERTRALINE HCL 25 MG TABLET PO (09:01)
[2020-03-22] MEDS: METOPROLOL SUCCINATE EXT REL 25 MG TABCR PO (09:01)
[2020-03-22] MEDS: PANTOPRAZOLE 40 MG TABLET PO (09:05)
--- NOTE | 2020-03-22 09:31 | PM.IMPN ---
Progress Note: A&P Assessment and Plan (1) Acute respiratory failure with hypoxemia: Code(s): J96.01 - Acute respiratory failure with hypoxia Status: Acute Assessment and Plan: Result of CHF exacerbation. Patient has been using BiPAP for comfort. On room air when not on BiPAP. Also complicated by anasarca and pressure from abdomen. Will continue to monitor. (2) Acute exacerbation of CHF (congestive heart failure): Qualifiers: Heart failure type: systolic Qualified Code(s): I50.23 - Acute on chronic systolic (congestive) heart failure Code(s): I50.9 - Heart failure, unspecified Status: Acute Assessment and Plan: Findings consistent with CHF exacerbation on admission. Cardiology consulted and appreciate input. Patient with known EF 10-15 %. No ischemia based on Lexiscan Myoview stress test. Patient still not wearing LifeVest at this time and states he does not understand why he would need to wear it while in the hospital. Spironolactone and lisinopril remain on hold. Will continue IV Bumex every 8 hours as well as metoprolol. Will continue to monitor. (3) NSVT (nonsustained ventricular tachycardia): Code(s): I47.2 - Ventricular tachycardia Status: Acute Assessment and Plan: Not wearing his LifeVest as noted above. Telemetry reviewed on 03/22/2020 with current sinus rhythm but has had episodes of nonsustained ventricular tachycardia while here. Reiterated need for use of LifeVest. Will continue to monitor. (4) Abdominal pain: Qualifiers: Abdominal location: generalized Qualified Code(s): R10.84 - Generalized abdominal pain Code(s): R10.9 - Unspecified abdominal pain Status: Acute Assessment and Plan: CT abdomen/pelvis with moderate ascites and anasarca. Continue IV diuretics and Protonix. TUMS as needed. Discussed with patient possible ultrasound-guided paracentesis but need current INR is previously 2.1 on 03/11/2020. Advised patient if INR is elevated, will not be able to have therapeutic paracentesis and will need to continue to work with diuretics. INR pending today. (5) Hyponatremia: Code(s): E87.1 - Hypo-osmolality and hyponatremia Status: Acute Assessment and Plan: Sodium 126 on 03/21/2020 with results still pending today. Will continue to monitor. (6) Hx of drug abuse: Code(s): F19.11 - Other psychoactive substance abuse, in remission Status: Chronic Assessment and Plan: Known history of drug use including methamphetamine. Urine drug screen negative on admission. Has already been educated about benefits of abstaining from illicit drug use. (7) Hemoptysis: Code(s): R04.2 - Hemoptysis Status: Acute Assessment and Plan: No further issue. Previous CTA chest on 03/14/2020 for pulmonary embolism. Lower extremity Dopplers negative. More likely result of CHF at this time. Hemoglobin stable at 13.3 on 03/19/2020. (8) Hepatitis C: Qualifiers: Viral hepatitis chronicity: unspecified Hepatic coma status: without hepatic coma Qualified Code(s): B19.20 - Unspecified viral hepatitis C without hepatic coma Code(s): B19.20 - Unspecified viral hepatitis C without hepatic coma Status: Chronic Assessment and Plan: Hepatitis C antibody was positive. Hepatitis C RNA still pending. (9) DVT prophylaxis: Code(s): Z29.9 - Encounter for prophylactic measures, unspecified Status: Acute Assessment and Plan: Has been receiving Lovenox but will hold this morning while awaiting current INR result as previously elevated. Time Spent With Patient Time with patient: 15 - 25 minutes Subjective Date/time seen: 03/22/20 09:31 Interval history: Date of Service: 03/22/2020. Admitted with CHF exacerbation. Still continues complain of abdominal pain along with nausea. Also has shortness of breath. No chest pain. No he
[2020-03-22 09:41] LABS: Hematocrit 43.1 % (42.0-52.0); Hemoglobin 13.8 g/dL (14.0-18.0); Mean Corpuscular Hemoglobin 30.7 pg (26-34); Mean Platelet Volume 10.8 fl (7.4-10.4); Platelet Count Result 301 k/mm3 (150-375); Red Blood Count 4.49 M/mm3 (4.6-6.20); Red Cell Distribution Width 18.3 % (11.5-14.5); White Blood Count 11.1 K/mm3 (4.5-10.0)
[2020-03-22 09:52] LABS: Blood Urea Nitrogen 39 mg/dL (9-20); Calcium 8.2 mg/dL (8.4-10.2); Carbon Dioxide 24 mmol/L (22-30); Chloride 88 mmol/L (98-107); Estimated CRCL calculation 97 ml/min; Estimated Glomerular Filt Rate > 60; Glucose 103 mg/dL (75-110); Potassium 4.5 mmol/L (3.4-5.0); Sodium 126 mmol/L (137-145)
[2020-03-22 09:54] LABS: Prothrombin Time 22.2 Seconds (11.1-14.7)
[2020-03-22 11:47] LABS: ANCA Screen Negative (Negative)
[2020-03-22] MEDS: SUCRALFATE SUSP 100 MG/ML 10 ML UDC 1000 MG PO ×2 (16:56→20:38)
[2020-03-23] VITALS (9 sets, daily range): BP systolic 96–107; BP diastolic 64–86; PULSE 66–116; RESP 22–24; TEMP 36.9–37.3; O2SAT 93–100
[2020-03-23] MEDS: BUMETANIDE INJ 1 MG/4 ML VIAL IV PUSH ×3 (06:01→22:01)
[2020-03-23] MEDS: SUCRALFATE SUSP 100 MG/ML 10 ML UDC 1000 MG PO ×4 (06:01→20:03)
[2020-03-23] MEDS: LORAZEPAM INJ 2 MG/ML VIAL 0.5 MG IV PUSH ×3 (06:02→18:47)
--- NOTE | 2020-03-23 07:54 | PM.PNCARD ---
Progress Note: A&P Assessment and Plan (1) Hepatitis C: Status: Chronic (2) Methamphetamine abuse: Status: Chronic Assessment and Plan: Couseled regarding quitting and effect it could have on his heart. 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 No ischemia based on Lexiscan myoview stress test. On Toprol XL 25 mg daily, and off Spironolactone 25 mg daily on hold. Start Entresto low dose to improve diuresis and symptoms and monitor BP and renal function. On Bumex 1 mg IV q 8 hours. May need to continue Metolazone for synergistic diuretic effect if his urine output decreases. Consider ultrafiltration with PICC line to pull fluids off of him if he fails diuretic therapy. He is not wearing Life vest to prevent sudden cardiac arrest this morning. He has abdominal pain could be from ascites causing abdominal distention. Consider paracentesis for symptomatic relief if there's significant ascites, however his INR is elevated due to recent acute liver failure in January 2020. May have developed cirrhosis of liver as liver enzymes normalized but still has coagulopathy. Spironolactone could be resumed if hemodynamics stable on Entresto. (4) NSVT (nonsustained ventricular tachycardia): Status: Acute (5) Anxiety: Code(s): F41.9 - Anxiety disorder, unspecified Status: Acute Assessment and Plan: He would like his anxiety medication increased. Subjective Date/time seen: 03/23/20 07:54 Reports sob is less. Has intermittent abdominal pain. No chest pain. Exam Const: General: no acute distress Neck: Neck: no JVD Carotids: no bruits Resp: Auscultation: no crackles, no rales, no rhonchi and no wheezes Other: Coarse breath sounds Cardio: Rate: regular rate Rhythm: regular rhythm Heart sounds: no murmurs GI: Auscultation: normal bowel sounds Neuro: Speech: normal speech Extrem: Right lower extremity: edema Left lower extremity: edema Other: Moderate edema of legs and feet Objective Data Vital Signs Vital Signs: Vital Signs - 24 hr 03/22/20 12:00 03/22/20 13:42 03/22/20 16:00 Temperature 98.1 F Pulse Rate 118 H 110 H 116 H Respiratory Rate 22 H Blood Pressure 121/73 Pulse Oximetry 94 03/22/20 20:00 03/22/20 21:11 03/22/20 21:50 Temperature 99.6 F Pulse Rate 111 H 115 H Respiratory Rate 32 H 28 H Blood Pressure 100/62 Pulse Oximetry 98 03/22/20 23:45 03/23/20 00:00 03/23/20 04:00 Temperature 98.2 F Pulse Rate 107 H 109 H 104 H Respiratory Rate 24 H Blood Pressure 107/76 Pulse Oximetry 97 03/23/20 05:52 Temperature 98.5 F Pulse Rate 66 Respiratory Rate 24 H Blood Pressure 107/74 Pulse Oximetry 97 Intake/Output Intake/Output: Intake & Output 03/20/20 03/21/20 03/22/20 03/23/20 23:59 23:59 23:59 23:59 Intake Total 1930 2470 2730 650 Output Total 400 Balance 0 0 2730 650 Meds/Results Medications: Active Medications Generic Name Dose Route Start Last Admin Trade Name Freq PRN Reason Stop Dose Admin Acetaminophen 650 mg 03/16/20 05:10 03/21/20 13:43 Tylenol Tablet PO 650 mg Q4H PRN Administration Mild Pain (1-3) or Fever Albuterol 2.5 mg 03/18/20 17:23 03/20/20 13:34 Albuterol Sulf Neb 2.5mg/0.5ml INHALATION 2.5 mg Q6HRT PRN Administration Shortness Of Breath Bumetanide 1 mg 03/17/20 22:00 03/23/20 06:01 Bumex Inj IV PUSH 1 mg Q8HR RALF Administration Calcium Carbonate 400 mg 03/21/20 13:32 03/22/20 17:54 Tums PO 400 mg Q4H PRN Administration Indigestion Enoxaparin Sodium 40 mg 03/17/20 09:00 03/22/20 09:07 Lovenox SUB-Q Not Given DAILY [facility] Guaifenesin 600 mg 03/18/20 21:00 03/22/20 20:38 Mucinex 12 Hr Tab PO 600 mg Q12HR RALF Administration Lorazepam 1 mg 03/16/20 11:08 03/19/20
[2020-03-23] MEDS: SERTRALINE HCL 25 MG TABLET PO (08:05)
[2020-03-23] MEDS: PANTOPRAZOLE 40 MG TABLET PO (08:05)
[2020-03-23] MEDS: SACUBITRIL/VALSARTAN 12-13 MG TABLET 1 TAB PO ×2 (08:05→20:03)
[2020-03-23] MEDS: CALCIUM CARBONATE (TUMS) 500 MG (200 MG ELEMENTAL) 400 MG PO (08:13)
[2020-03-23] MEDS: METOPROLOL SUCCINATE EXT REL 25 MG TABCR PO (08:51)
[2020-03-23 10:19] LABS: INR 2.3; Prothrombin Time 24.6 Seconds (11.1-14.7)
[2020-03-23 10:20] LABS: Blood Urea Nitrogen 44 mg/dL (9-20); Calcium 8.2 mg/dL (8.4-10.2); Carbon Dioxide 19 mmol/L (22-30); Chloride 90 mmol/L (98-107); Estimated CRCL calculation 89 ml/min; Estimated Glomerular Filt Rate > 60; Glucose 122 mg/dL (75-110); Potassium 4.8 mmol/L (3.4-5.0); Sodium 122 mmol/L (137-145)
--- NOTE | 2020-03-23 10:54 | PCNWS ---
Weekly nutritional screen. Patient is tolerating current diet with adequate intake. No weight loss reported. No nutritional needs at this time.
--- NOTE | 2020-03-23 12:33 | PM.IMPN ---
Progress Note: A&P Assessment and Plan (1) Acute respiratory failure with hypoxemia: Code(s): J96.01 - Acute respiratory failure with hypoxia Status: Acute Assessment and Plan: Secondary to CHf, continue Bipap, order Cxr for tomorrow. (2) Acute exacerbation of CHF (congestive heart failure): Qualifiers: Heart failure type: systolic Qualified Code(s): I50.23 - Acute on chronic systolic (congestive) heart failure Code(s): I50.9 - Heart failure, unspecified Status: Acute Assessment and Plan: Findings consistent with CHF exacerbation on admission. Cardiology consulted and appreciate input. Patient with known EF 10-15 %. Multiple admission, Non compliance refuses life vest. Dr Herson gregg, see recommendations. (3) NSVT (nonsustained ventricular tachycardia): Code(s): I47.2 - Ventricular tachycardia Status: Acute Assessment and Plan: Continue to monitor. Pt keeps taking off his telemetry. (4) Abdominal pain: Qualifiers: Abdominal location: generalized Qualified Code(s): R10.84 - Generalized abdominal pain Code(s): R10.9 - Unspecified abdominal pain Status: Acute Assessment and Plan: CT abdomen/pelvis with moderate ascites and anasarca. Watch INR pt benefits from paracentesis to relief distension. (5) Hyponatremia: Code(s): E87.1 - Hypo-osmolality and hyponatremia Status: Acute Assessment and Plan: Sodium 122, continue to monitor. (6) Hx of drug abuse: Code(s): F19.11 - Other psychoactive substance abuse, in remission Status: Chronic Assessment and Plan: Known history of drug use including methamphetamine. Causes severe cardiomyopathy. (7) Hemoptysis: Code(s): R04.2 - Hemoptysis Status: Acute Assessment and Plan: Resolved possible secondary to CHF excerbation. (8) Hepatitis C: Qualifiers: Viral hepatitis chronicity: unspecified Hepatic coma status: without hepatic coma Qualified Code(s): B19.20 - Unspecified viral hepatitis C without hepatic coma Code(s): B19.20 - Unspecified viral hepatitis C without hepatic coma Status: Chronic Assessment and Plan: Hepatitis C antibody was positive. Hepatitis C RNA still pending. (9) DVT prophylaxis: Code(s): Z29.9 - Encounter for prophylactic measures, unspecified Status: Acute Assessment and Plan: Lovenox is held, Inr is 2.4, awaiting for he inr to come down Subjective Date/time seen: 03/23/20 12:33 Interval history: 29 year old male admitted with CHF exacerbation. Several admission with CHF. History of chronic systolic heart failure, history of methamphetamine abuse and nonischemic cardiomyopathy. Pt was seriously ill in january with multiorgan failure with liver failure, acute CHF, hyperkalemia, PNA and septic shock and was transferred to [facility]. History of non compliance and paranoid schizophrenia. Seen by cardiology, continue to diuresis. Will order Cxr for tomorrow as pt has a bad cough today. Review of Systems Review of Systems: All systems reviewed & are unremarkable except as noted in HPI and below Cardiovascular: Comments: Edema of legs and abdomen Respiratory: Respiratory: Reports chest congestion, Reports cough and Reports dyspnea Exam Narrative: Exam Narrative: Awake and alert. Resp: Auscultation: diminished lung sounds and other (crackles at bases ) Cardio: Rate: regular rate Rhythm: regular rhythm GI: Other: Heavily distended with fluid, ascites Extrem: General: edema (2-3+ lower extremities) Psych: Mental Status: mental status grossly normal Affect: Anxious affect present Objective Data Vital Signs Vital Signs: Vital Signs - 24 hr 03/22/20 13:42 03/22/20 16:00 03/22/20 20:00 Temperature 36.7 C Pulse Rate 110 H 116 H 111 H Respiratory Rate 22 H Blood Pressure 121/73 Pulse Oximetry 94 06
[2020-03-24] VITALS (11 sets, daily range): BP systolic 93–100; BP diastolic 64–70; PULSE 102–113; RESP 20–33; TEMP 36.7–37.1; O2SAT 97–100
[2020-03-24] MEDS: LORAZEPAM INJ 2 MG/ML VIAL 0.5 MG IV PUSH ×3 (00:22→12:34)
[2020-03-24] MEDS: SUCRALFATE SUSP 100 MG/ML 10 ML UDC 1000 MG PO ×2 (06:12→11:19)
[2020-03-24] MEDS: BUMETANIDE INJ 1 MG/4 ML VIAL IV PUSH ×2 (06:12→14:09)
--- NOTE | 2020-03-24 07:47 | PM.PNCARD ---
Progress Note: A&P Assessment and Plan (1) Hepatitis C: (2) Methamphetamine abuse: Assessment and Plan: Couseled regarding quitting and effect it could have on his heart. (3) Acute exacerbation of CHF (congestive heart failure): Assessment and Plan: Had septic shock in January and was transferred from our ER to [facility] hospital in January 2020 with multiorgain failure including heart failure, liver failure, respiratory failure. Acute dilated cardiomyopathy with significant systolic dysfunction, EF 10-15%. No ischemia based on Lexiscan myoview stress test. On Toprol XL 25 mg daily, and off Spironolactone 25 mg daily on hold due to low BP and low sodium. Started Entresto 03/23/20 low dose to improve diuresis and symptoms and monitor BP and renal function. On Bumex 1 mg IV q 8 hours. May need to continue Metolazone for synergistic diuretic effect if his urine output decreases. Consider ultrafiltration with PICC line to pull fluids off of him if he fails diuretic therapy. He is not wearing Life vest to prevent sudden cardiac arrest this morning. He has abdominal pain could be from ascites causing abdominal distention. Consider paracentesis for symptomatic relief if there's significant ascites, however his INR is elevated due to recent acute liver failure in January 2020. May have developed cirrhosis of liver (history of hepatitis C) as liver enzymes normalized but still has coagulopathy. Spironolactone could be resumed if hemodynamics stable on Entresto. Unable to adequately diurese patient. His sodium level is decreasing on diuretics. Discussed with patient who requests to be transferred to [facility] for higher level of care for acute on chronic systolic heart failure. Consider LVAD/RVAD. (4) NSVT (nonsustained ventricular tachycardia): (5) Anxiety: Code(s): F41.9 - Anxiety disorder, unspecified Status: Acute Assessment and Plan: He would like his anxiety medication increased. (6) Coagulopathy: Code(s): D68.9 - Coagulation defect, unspecified Status: Acute Subjective Date/time seen: 03/24/20 07:47 Discussed with patient that he still has a lot of swelling in his legs, fluid in his lungs, low sodium level, and that he may not go home from a medical standpoint. He may need something more done for his heart to help pump fluid and that would need to be done at [facility] as we do not do it here, and he requests to be transferred. He has sob, coughing and some abdominal discomfort. He coughed up small amount of blood. No chest pains. His anxiety is better this morning. Exam Const: General: comfortable and no acute distress Neck: Neck: no JVD Carotids: no bruits Resp: Auscultation: no rales, no rhonchi, no wheezes and diminished lung sounds Other: Coarse breath sounds bilaterally Cardio: Rate: tachycardic Rhythm: regular rhythm Heart sounds: no murmurs GI: Auscultation: normal bowel sounds Neuro: Speech: normal speech Extrem: Right lower extremity: edema Left lower extremity: edema Other: Mod-severe edema of both legs and feet Objective Data Vital Signs Vital Signs: Vital Signs - 24 hr 03/23/20 08:00 03/23/20 12:28 03/23/20 14:00 Temperature 99.2 F Pulse Rate 114 H 116 H 111 H Respiratory Rate 24 H Blood Pressure 107/86 Pulse Oximetry 100 03/23/20 16:00 03/23/20 20:00 03/23/20 22:00 Temperature 99.2 F Pulse Rate 108 H 107 H 107 H Respiratory Rate 22 H Blood Pressure 96/64 L Pulse Oximetry 93 03/24/20 00:00 03/24/20 06:00 Temperature 98.1 F Pulse Rate 104 H 107 H Respiratory Rate 20 Blood Pressure 100/64 Pulse Oximetry 97 Intake/Output Intake/Output: Intake & Output 03/21/20 03/22/20 03/23/20 03/24/20 23:59 23:59 23:59 23:59 Intake Total 2470 2730 1770 1480 Output Total 400 100 10 Balance 2070 2730 1670 1470 Meds/Results Medications: Active Medications Generic Name Dose Route Start Last Admin Trade Name Freq PRN Reason Sto
--- NOTE | 2020-03-24 08:30 | PC.NURSE ---
Patient seen by Dr. Bains and he states arrangements are being made for patient to transfer to [facility] for further care. Dr. Hollis Parson has accepted patient. Patient aware and is agreeable to transfer. Received a call from [facility] and provided intake information. They state they will call when a bed becomes available. Patient's grandmother informed by patient. Called Dr. Lee and let her know as well. She states she will contact Dr. Bains and enter transfer order.
[2020-03-24] MEDS: METOPROLOL SUCCINATE EXT REL 25 MG TABCR PO (08:33)
[2020-03-24] MEDS: SERTRALINE HCL 25 MG TABLET PO (08:33)
[2020-03-24] MEDS: PANTOPRAZOLE 40 MG TABLET PO (08:33)
[2020-03-24] MEDS: SACUBITRIL/VALSARTAN 12-13 MG TABLET 1 TAB PO (08:33)
--- NOTE | 2020-03-24 10:09 | PM.IMPN ---
Progress Note: A&P Assessment and Plan (1) Acute exacerbation of CHF (congestive heart failure): Qualifiers: Heart failure type: systolic Qualified Code(s): I50.23 - Acute on chronic systolic (congestive) heart failure Code(s): I50.9 - Heart failure, unspecified Status: Acute Assessment and Plan: Findings consistent with CHF exacerbation on admission. Cardiology consulted and appreciate input. Patient with known EF 10-15 %. No ischemia based on Lexiscan Myoview stress test. Patient still not wearing LifeVest at time of my exam. Remains on IV Bumex but not diuresing adequately. On metoprolol. Dr. Bains has already spoken with Dr. Parson at [facility] who has accepted in transfer. Plan to transfer to [facility] as soon as bed available. (2) Acute respiratory failure with hypoxemia: Code(s): J96.01 - Acute respiratory failure with hypoxia Status: Acute Assessment and Plan: Result of CHF exacerbation. Patient has been using BiPAP for comfort. Remains on room air if not using BiPAP. Continue to monitor. (3) NSVT (nonsustained ventricular tachycardia): Code(s): I47.2 - Ventricular tachycardia Status: Acute Assessment and Plan: Not wearing his LifeVest as noted above. Telemetry reviewed on 03/24/2020 with current sinus rhythm but has had episodes of nonsustained ventricular tachycardia while here. Reiterated need for use of LifeVest. Will continue to monitor. (4) Abdominal pain: Qualifiers: Abdominal location: generalized Qualified Code(s): R10.84 - Generalized abdominal pain Code(s): R10.9 - Unspecified abdominal pain Status: Acute Assessment and Plan: CT abdomen/pelvis with moderate ascites and anasarca. Remains on IV diuretics and Protonix. TUMS as needed. Possibility of ultrasound-guided paracentesis considered but INR has been > 2 and therefore will not proceed. No abdominal pain today. Will monitor while here. (5) Hyponatremia: Code(s): E87.1 - Hypo-osmolality and hyponatremia Status: Acute Assessment and Plan: Sodium lower at 122 today but on diuretics. Will need to continue to monitor. (6) Hx of drug abuse: Code(s): F19.11 - Other psychoactive substance abuse, in remission Status: Chronic Assessment and Plan: Known history of drug use including methamphetamine. Urine drug screen negative on admission. Has already been educated about benefits of abstaining from illicit drug use. (7) Hemoptysis: Code(s): R04.2 - Hemoptysis Status: Acute Assessment and Plan: No further issue. Previous CTA chest on 03/14/2020 for pulmonary embolism. Lower extremity Dopplers negative. More likely result of CHF at this time. Hemoglobin stable at 13.8 on . (8) Hepatitis C: Qualifiers: Viral hepatitis chronicity: unspecified Hepatic coma status: without hepatic coma Qualified Code(s): B19.20 - Unspecified viral hepatitis C without hepatic coma Code(s): B19.20 - Unspecified viral hepatitis C without hepatic coma Status: Chronic Assessment and Plan: Hepatitis C antibody was positive. Hepatitis C RNA < 15. HIV also negative. (9) DVT prophylaxis: Code(s): Z29.9 - Encounter for prophylactic measures, unspecified Status: Acute Assessment and Plan: Lovenox on hold with INR > 2. Time Spent With Patient Time with patient: 15 - 25 minutes Subjective Date/time seen: 03/24/20 10:09 Interval history: Date of Service: 03/24/2020. Admitted with CHF exacerbation. Generally does not feel well today. No abdominal pain today. No shortness of breath. No chest pain. No headache. Review of Systems Review of Systems: Narrative: Generally does not feel well. Constitutional: Constitutional: Denies chills and Denies fever(s) ENT: Denies dysphagia Cardiovascular: Cardiovascular: Denies chest pain, Reports leg edema a
[2020-03-24] MEDS: CALCIUM CARBONATE (TUMS) 500 MG (200 MG ELEMENTAL) 400 MG PO (14:15)
[2020-03-24] MEDS: ALBUTEROL SULFATE NEB 2.5 MG/0.5 ML INH INHALATION (14:18)
--- NOTE | 2020-03-24 16:19 | PM.TDS ---
Transfer Discharge Sum: Prov Provider Date of admission: 03/16/20 10:28 Primary care physician: [employer]IC[facility] Admitting clinician: Sujata Hunter DO Attending physician on admission: Jewel Dhillon Consults: 03/16/20 11:06 Consult to Physician Routine Comment: Consulting Provider: Jet Bains bingo caller/MD group to consult: Dr Bains spoke to Albino Guerrero Reason for consultation: CHF Has provider been notified: Yes Attending physician on discharge: Solange Garcia Discharging clinician: Solange Garcia Anticipated date of transfer: 03/24/20 Receiving physician/facility: Dr. Parson/Bernardo DS: Admitting Diagnosis Admitting Diagnosis Admitting Diagnosis: Heart failure, unspecified DS: Discharge Diagnosis Discharge Diagnosis (1) Acute exacerbation of CHF (congestive heart failure): Qualifiers: Heart failure type: systolic Qualified Code(s): I50.23 - Acute on chronic systolic (congestive) heart failure Code(s): I50.9 - Heart failure, unspecified Status: Acute (2) Acute respiratory failure with hypoxemia: Code(s): J96.01 - Acute respiratory failure with hypoxia Status: Acute (3) NSVT (nonsustained ventricular tachycardia): Code(s): I47.2 - Ventricular tachycardia Status: Acute (4) Abdominal pain: Qualifiers: Abdominal location: generalized Qualified Code(s): R10.84 - Generalized abdominal pain Code(s): R10.9 - Unspecified abdominal pain Status: Acute (5) Hyponatremia: Code(s): E87.1 - Hypo-osmolality and hyponatremia Status: Acute (6) 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 Hepatitis C RNA < 15. Transfer Discharge Sum: Med Medications Active and Home Medications: Home Medications lorazepam 1 mg PO Q6H PRN #20 tablet 03/02/20 [Rx Confirmed 03/12/20] sertraline 25 mg PO HS #30 tablet 03/02/20 [Rx Confirmed 03/12/20] spironolactone 25 mg PO DAILY #30 tablet 03/02/20 [Rx Confirmed 03/12/20] benzonatate [Tessalon Perles] 100 mg PO TID PRN #20 cap 03/04/20 [Rx Confirmed 03/12/20] furosemide 80 mg PO BID #30 tablet 03/14/20 [Rx] lisinopril 2.5 mg PO QAM #15 tablet 03/14/20 [Rx] metoprolol succinate 50 mg PO DAILY #15 tablet 03/14/20 [Rx] benzonatate 100 mg PO TID PRN 03/16/20 [History Confirmed 03/16/20] furosemide [Lasix] 80 mg PO BID 03/16/20 [History Confirmed 03/16/20] lisinopril 2.5 mg PO DAILY 03/16/20 [History Confirmed 03/16/20] lorazepam 1 mg PO Q6H PRN 03/16/20 [History Confirmed 03/16/20] metoprolol succinate 50 mg PO DAILY 03/16/20 [History Confirmed 03/16/20] sertraline 25 mg PO DAILY 03/16/20 [History Confirmed 03/16/20] spironolactone 25 mg PO DAILY 03/16/20 [History Confirmed 03/16/20] Active Medications Acetaminophen (Tylenol Tablet) 650 mg PO Q4H PRN PRN Reason: Mild Pain (1-3) or Fever Last Admin: 03/21/20 13:43 Dose: 650 mg Documented by: Albuterol (Albuterol Sulf Neb 2.5mg/0.5ml) 2.5 mg INHALATION Q6HRT PRN PRN Reason: Shortness Of Breath Last Admin: 03/24/20 14:18 Dose: 2.5 mg Documented by: Bumetanide (Bumex Inj) 1 mg IV PUSH Q8HR RALF Last Admin: 03/24/20 14:09 Dose: 1 mg Documented by: Calcium Carbonate (Tums) 400 mg PO Q4H PRN PRN Reason: Indigestion Last Admin: 03/24/20 14:15 Dose: 400 mg Documented by: Enoxaparin Sodium (Lovenox) 40 mg SUB-Q DAILY RALF Last Admin: 03/22/20 09:07 Dose: Not Given Documented by: Guaifenesin (Mucinex 12 Hr Tab
--- NOTE | 2020-03-24 17:30 | PC.NURSE ---
Patient transferred to ICU via [facility] ambulance. Attempted to call patient's grandmother 3 times per patient's request - line busy every time.
[2020-03-27 12:37] LABS: Cryoglobulin, QL Negative (Negative)
== END 2020-03-24 17:15 | disposition short-term general hospital (02) | DRG 194 ==
LOC: ANHED 03:07 → ANH2MED 05:28
PROVIDERS: Internal Medicine; Internal Medicine Cardiovascular Disease; Admitting Provider Internal Medicine; Emergency Provider Emergency Medicine; Visit Provider Hospitalist
DX: I50.23 Acute on chronic systolic (congestive) heart failure (principal); K72.90 Hepatic failure, unspecified without coma; J96.01 Acute respiratory failure with hypoxia; F41.9 Anxiety disorder, unspecified; I47.2 Ventricular tachycardia; E87.1 Hypo-osmolality and hyponatremia; R04.2 Hemoptysis; B19.20 Unspecified viral hepatitis C without hepatic coma; I42.8 Other cardiomyopathies; F20.0 Paranoid schizophrenia; B18.2 Chronic viral hepatitis C; F15.10 Other stimulant abuse, uncomplicated; Z91.19 Patient's noncompliance with other medical treatment and regimen; Z87.891 Personal history of nicotine dependence
CPT/HCPCS: 36415; 36600; 71045; 74176; 80048; 80053; 80307; 81003; 82595; 82805; 83735; 83880; 84100; 84484; 85025; 85027; 85610; 86021; 86038; 86140; 93005; 93970; 94002; 94003; 94640; 96374; 96375; 99285; A9270; G0378; G0379; J1650; J1940; J2060; J2310